=== PATIENT | female | born 1955 | race African-American/Black ===

== ENCOUNTER 2018-03-08 15:40 | Inpatient (IN) | payer OTHER ==
[2018-03-08] MEDS ORDERED: Albuterol/Ipratropium NEB.SOL* Albuterol 2.5 MG/Ipratropium 0.5 MG 3 ML INH ONE (17:53)
[2018-03-08] MEDS ORDERED: methylPREDNISolone 125 MG* 2 ML VIAL IV ONE (17:53)
[2018-03-08 18:53] LABS: Hematocrit 39 % (35-47); Hemoglobin 13.6 g/dl (12.0-16.0); Mean Corpuscular HGB Conc 34 g/dl (31-36); Mean Corpuscular Hemoglobin 30 pg (27-31); Mean Corpuscular Volume 86 fL (80-97); Mean Platelet Volume 7.8 um3 (7.4-10.4); Platelet Count 246 10^3/ul (150-450); Red Blood Count 4.59 10^6/ul (4.0-5.4); Red Cell Distribution Width 15 % (10.5-15); White Blood Count 13.7 10^3/ul (3.5-10.8)
[2018-03-08 18:57] LABS: INR 1.18 (0.77-1.02)
[2018-03-08] MEDS ORDERED: Azithromycin IV(*) 500 MG in NS 0.9% 250 ML* 250 ML IVPB ONE (18:57)
[2018-03-08] MEDS ORDERED: cefTRIAXone(*) 1 GM in NS 0.9% 50 ML* 50 ML IVPB ONE (18:57)
[2018-03-08 19:06] LABS: EGFR Non-African American 72.9 (>60)
--- NOTE | 2018-03-08 19:13 | RAD ---
Indication: Hemoptysis. COPD. Comparison: May 16, 2016 CT. Technique: Upright AP 1849 hours Report: Elevated lung volumes and both diffuse mild prominence of the interstitial markings and patchy rarefaction of the mid to upper lung zone interstitial markings. Severe airspace consolidation involving the anterior segment of the RIGHT upper lobe which may be technical due to pneumonia or potentially alveolar hemorrhage in setting of hemoptysis. Grossly clear pleural spaces. Negative for pneumothorax. The heart, pulmonary vasculature, and mediastinal contours are unremarkable. IMPRESSION: The radiographic appearance in the appropriate clinical setting would be consistent with pneumonia involving the anterior segment of the RIGHT upper lobe. In absence of clinical findings of pneumonia the primary consideration would be pulmonary hemorrhage. Underlying advanced chronic obstructive pulmonary disease. Correlate with clinical assessment.
[2018-03-08] MEDS ORDERED: Iohexol 350* (CONTRAST) 500 ML MDV IV ONE (19:28)
[2018-03-08 20:02] LABS: Monocytes % 7 % (0-7)
--- NOTE | 2018-03-08 20:13 | RAD ---
INDICATION: Hemoptysis. Assess for PE. COMPARISON: Chest radiograph of the same date and May 16, 2016 CT. TECHNIQUE: Multidetector CT images were obtained from the lung apices to the upper abdomen with 79 mL Omnipaque 350 IV contrast. Pulmonary angiogram protocol. Multiplanar reformation including with maximum intensity projection. REPORT: Airspace consolidation involving the RIGHT upper lobe with relative sparing of the apex consistent with pneumonia superimposed on chronic obstructive pulmonary disease and emphysema. Partial atelectasis of the RIGHT middle lobe and RIGHT lower lobe. Grossly clear LEFT lung. Negative for pleural effusions or pneumothorax. Upper normal 1.0 cm short axis precarinal and subcarinal lymph nodes. Upper normal bilateral hilar lymph nodes measuring up to 0.7 cm short axis. Negative for lymphadenopathy. Negative for cardiomegaly or pericardial effusion. Normal diameter thoracic aorta with mild atherosclerotic plaque. Negative for aortic dissection. Motion artifact mildly degrades the CT pulmonary angiogram. No compelling filling defects are identified from the main to the subsegmental pulmonary arteries to indicate presence of a pulmonary embolism. Prominent central pulmonary arteries with peripheral attenuation favoring pulmonary arterial hypertension. Small sliding type hiatal hernia. Negative for suspicious thoracic osseous lesions. IMPRESSION: 1. RIGHT upper lobe pneumonia. Radiographic follow-up after therapy warranted to assess for resolution. 2. Partial atelectasis of the RIGHT middle and RIGHT lower lobes. 3. Negative for pulmonary embolism. 4. Probable reactive upper normal mediastinal and hilar lymph nodes. 5. Probable pulmonary arterial hypertension.
[2018-03-08] MEDS ORDERED: Docusate CAP* 100 MG PO PRN (20:21)
[2018-03-08] MEDS ORDERED: Al Hydrox/Mg Hydrox/Simet LIQ* 30 ML UDC PO PRN (20:21)
[2018-03-08] MEDS ORDERED: Senna TAB PO PRN (20:21)
[2018-03-08] MEDS ORDERED: Ondansetron INJ* 2 MG/ML VIAL IV PRN (20:21)
[2018-03-08] MEDS ORDERED: Benzonatate CAP* 100 MG PO PRN (20:27)
[2018-03-08] MEDS ORDERED: PROCHLORPERAZINE INJ 5 MG/ML 2 ML VIAL IV PRN (20:28)
[2018-03-08] MEDS ORDERED: Mouth Piece, Nicotine* 1 EACH CARTRIDGE INH PRN ×2 (20:37)
[2018-03-08] MEDS ORDERED: Dextrose 50% Syringe 50 ML* 25 GM/50 ML SYRINGE IV PUSH PRN (20:37)
[2018-03-08] MEDS ORDERED: Nicotine Inhaler* 10 MG AMP INH PRN (20:37)
[2018-03-08] MEDS ORDERED: Piperacillin/Tazobac ADVAN(*) 3.375 GM in NS 0.9% 100 ML* 100 ML IVPB ONE (20:48)
[2018-03-08] MEDS ORDERED: Spiriva Inhaler DEVICE* 1 EACH DEVICE SCH (21:00)
[2018-03-08] MEDS ORDERED: Zosyn per Pharmacy* NOTE FOLLOW UP SCH (21:00)
[2018-03-08] MEDS ORDERED: KCL 20 MEQ/100 ML IVPREMIX* 20 MEQ/100 ML BAG IV SCH (21:00)
--- NOTE | 2018-03-08 21:28 | ED ---
Alin Minor Stephanie, scribed for Javier Rod MD on 03/08/18 at 1756 . Complex/Multi-Sys Presentation - HPI Summary HPI Summary: The pt is a 62 y/o F presenting to the ED with c/o SOB that began at 07:30 today. Symptoms include generalized increasing fibromyalgia pain, R rib pain and cough. - History Of Current Complaint Chief Complaint: EDShortnessOfBreath Time Seen by Provider: 03/08/18 17:51 Hx Obtained From: Patient Onset/Duration: Sudden Onset, Lasting Hours - 10, Still Present Timing: Constant Severity Currently: Moderate Associated Signs And Symptoms: Positive: SOB, Cough, Other - generalized fibromyalgia pain - Allergies/Home Medications Allergies/Adverse Reactions: Allergies Allergy/AdvReac Type Severity Reaction Status Date / Time No Known Allergies Allergy Verified 03/08/18 15:52 Home Medications: Home Medications Albuterol 2.5MG/3ML (0.083%)* [Ventolin 2.5 MG/3 ML NEB.TED*] 2.5 mg INH BID PRN 03/08/18 [History Confirmed 03/08/18] Albuterol HFA INHALER* [Ventolin HFA Inhaler*] 2 puff INH Q4H PRN 03/08/18 [ History Confirmed 03/08/18] Aspirin EC TAB* [Ecotrin EC Low Dose 81 MG*] 81 mg PO DAILY 03/08/18 [History Confirmed 03/08/18] Benzonatate CAP* [Tessalon 100 MG CAP*] 200 mg PO TID PRN 03/08/18 [History Confirmed 03/08/18] Docusate CAP* [Colace Cap*] 100 mg PO BID 03/08/18 [History Confirmed 03/08/18] FLUoxetine CAP* [PROzac CAP*] 20 mg PO QAM 03/08/18 [History Confirmed 03/08/18] FLUoxetine CAP* [PROzac CAP*] 40 mg PO QAM 03/08/18 [History Confirmed 03/08/18] Isosorbide Mononitrate ER TAB* [Imdur ER TAB*] 60 mg PO DAILY 03/08/18 [History Confirmed 03/08/18] Mometasone/Formoter 200/5 MDI* [Dulera 200/5 MDI*] 2 puff INH BID 03/08/18 [ History Confirmed 03/08/18] Naproxen TAB* [Naprosyn 250 mg TAB*] 500 mg PO BID 03/08/18 [History Confirmed 03/08/18] QUEtiapine TAB* [Seroquel 25 MG TAB*] 50 mg PO DAILY 03/08/18 [History Confirmed 03/08/18] Spironolactone TAB* [Aldactone TAB*] 25 mg PO DAILY 03/08/18 [History Confirmed 03/08/18] amLODIPine TAB* [Norvasc 5 mg TAB*] 10 mg PO DAILY 03/08/18 [History Confirmed 03/08/18] PMH/Surg Hx/FS Hx/Imm Hx Endocrine/Hematology History: Denies: Hx Diabetes Cardiovascular History: Reports: Hx Hypertension Denies: Hx Congestive Heart Failure Respiratory History: Reports: Hx Asthma, Hx Chronic Obstructive Pulmonary Disease (COPD) GI History: Reports: Hx Obstructive Bowel, Other GI Disorders - bowel resection History: Denies: Hx Renal Disease Musculoskeletal History: Reports: Hx Fibromyalgia, Hx Tendonitis Sensory History: Reports: Hx Contacts or Glasses - glasses Opthamlomology History: Reports: Hx Contacts or Glasses - glasses - Surgical History Surgery Procedure, Year, and Place: Hysterectomy. Bowel resection 2011. Left hand tendon repair 2014. right knee build up 2013 Infectious Disease History: No Infectious Disease History: Reports: Hx Shingles - not active Denies: History Other Infectious Disease, Traveled Outside the [place] in Last 30 Days - Family History Known Family History: Negative: Renal Disease - Social History Occupation: Disabled Lives: With Family Alcohol Use: None Hx Substance Use: No Substance Use Type: Reports: None Substance Use Comment - Amount & Last Used: xanax Hx Tobacco Use: Yes Smoking Status (MU): Light Every Day Tobacco Smoker Type: Cigarettes Review of Systems Negative: Fever Positive: Shortness Of Breath, Cough Positive: Other - R rib pain, generalized fibromyalgia pain All Other Systems Reviewed And Are Negative: Yes Physical Exam - Summary Physical Exam Summary: General: Mildly ill-appearing, no pain distress Skin: warm, color reflects adequate perfusion, dry Head: normal Eyes: EOMI, VIVIANA ENT: normal Neck: supple, nontender Respiratory: Bilateral rhonchi, mild respiratory distress, breath sounds present Cardiovascular: RRR Abdomen: soft, nontender Bowel: present Musculoskeletal: normal, strength/ROM intact Neurological: normal, sensory/motor intact, A&O x3 Psychological: affect/mood appropriate Triage Information Reviewed: Yes Vital Signs On Initial Exam: Initial Vitals Temp Pulse Resp BP Pulse Ox 99.1 F 105 20 109/72 92 03/08/18 15:47 03/08/18 15:47 03/08/18 15:47 03/08/18 15:47 03/08/18 15:47 Vital Signs Reviewed: Yes Diagnostics - Vital Signs Vital Signs Temp Pulse Resp BP Pulse Ox 03/08/18 15:47 99.1 F 105 20 109/72 92 - Laboratory Lab Results: Lab Results 03/08/18 03/08/18 03/08/18 Range/Units 18:33 18:34 18:34 WBC 13.7 H (3.5-10.8) 10^3/ul RBC 4.59 (4.0-5.4) 10^6/ul Hgb 13.6 (12.0-16.0) g/dl Hct 39 (35-47) % MCV 86 (80-97) fL MCH 30 (27-31) pg MCHC 34 (31-36) g/dl RDW 15 (10.5-15) % Plt Count 246 (150-450) 10^3/ul MPV 7.8 (7.4-10.4) um3 Neut % (Auto) Not Reportable Lymph % (Auto) Not Reportable Weld % (Auto) Not Reportable Eos % (Auto) Not Reportable Baso % (Auto) Not Reportable Absolute Neuts (auto) Not Reportable Absolute Lymphs (auto) Not Reportable Absolute Monos (auto) Not Reportable Absolute Eos (auto) Not Reportable Absolute Basos (auto) Not Reportable Absolute Nucleated RBC Not Reportable Immature Gran % 6 (0-9) % Neutrophils % 79 (38-83) % Band Neutrophils % 6 (0-8) % Lymphocytes % 8 L (25-47) % Monocytes % 7 (0-7) % Eosinophils % 0 (0-6) % Basophils % 0 (0-2) % Nucleated RBC % Not Reportable Abs Neuts (Manual) 10.8 H (1.5-7.7) 10^3/ul Abs Lymphs (Manual) 1.1 (1.0-4.8) 10^3/ul Abs Monocytes (Manual) 1.0 H (0-0.8) 10^3/ul Absolute Eos (Manual) 0 (0-0.6) 10^3/ul Abs Basophils (Manual) 0 (0-0.2) 10^3/ul Large Platelets Present Normal RBC Morphology Normal (Normal) INR (Anticoag Therapy) 1.18 H (0.77-1.02) D-Dimer, Quantitative 911 H (Less Than 230) ng/mL VBG pH (7.33-7.43) VBG pCO2 (41-51) mmHg VBG pO2 (35-45) mmHg VBG HCO3 (24-28) mmol/L VBG O2 Saturation (70-80) % VBG Base Excess (0-4) Sodium 136 L (139-145) mmol/L Potassium 3.1 L (3.5-5.0) mmol/L Chloride 102 (101-111) mmol/L Carbon Dioxide 24 (22-32) mmol/L Anion Gap 10 (2-11) mmol/L BUN 12 (6-24) mg/dL Creatinine 0.80 (0.51-0.95) mg/dL Est GFR ( Amer) 93.8 (>60) Est GFR (Non-Af Amer) 72.9 (>60) BUN/Creatinine Ratio 15.0 (8-20) Glucose 92 (70-100) mg/dL Lactic Acid (0.5-2.0) mmol/L Calcium 8.4 L (8.6-10.3) mg/dL Magnesium 1.0 L (1.9-2.7) mg/dL Total Bilirubin 1.30 H (0.2-1.0) mg/dL AST 12 L (13-39) U/L ALT 9 (7-52) U/L Alkaline Phosphatase 85 (34-104) U/L Total Creatine Kinase 86 (10-223) U/L Troponin I 0.00 (<0.04) ng/mL C-Reactive Protein 108.11 H (< 5.00) mg/L B-Natriuretic Peptide ( - 100) pg/mL Total Protein 6.6 (6.4-8.9) g/dL Albumin 3.3 (3.2-5.2) g/dL Globulin 3.3 (2-4) g/dL Albumin/Globulin Ratio 1.0 (1-3) 03/08/18 03/08/18 03/08/18 Range/Units 18:34 18:34 18:52 WBC (3.5-10.8) 10^3/ul RBC (4.0-5.4) 10^6/ul Hgb (12.0-16.0) g/dl Hct (35-47) % MCV (80-97) fL MCH (27-31) pg MCHC (31-36) g/dl RDW (10.5-15) % Plt Count (150-450) 10^3/ul MPV (7.4-10.4) um3 Neut % (Auto) Lymph % (Auto) Weld % (Auto) Eos % (Auto) Baso % (Auto) Absolute Neuts (auto) Absolute Lymphs (auto) Absolute Monos (auto) Absolute Eos (auto) Absolute Basos (auto) Absolute Nucleated RBC Immature Gran % (0-9) % Neutrophils % (38-83) % Band Neutrophils % (0-8) % Lymphocytes % (25-47) % Monocytes % (0-7) % Eosinophils % (0-6) % Basophils % (0-2) % Nucleated RBC % Abs Neuts (Manual) (1.5-7.7) 10^3/ul Abs Lymphs (Manual) (1.0-4.8) 10^3/ul Abs Monocytes (Manual) (0-0.8) 10^3/ul Absolute Eos (Manual) (0-0.6) 10^3/ul Abs Basophils (Manual) (0-0.2) 10^3/ul Large Platelets Normal RBC Morphology (Normal) INR (Anticoag Therapy) (0.77-1.02) D-Dimer, Quantitative (Less Than 230) ng/mL VBG pH (7.33-7.43) VBG pCO2 (41-51) mmHg VBG pO2 (35-45) mmHg VBG HCO3 (24-28) mmol/L VBG O2 Saturation (70-80) % VBG Base Excess (0-4) Sodium (139-145) mmol/L Potassium (3.5-5.0) mmol/L Chloride (101-111) mmol/L Carbon Dioxide (22-32) mmol/L Anion Gap (2-11) mmol/L BUN (6-24) mg/dL Creatinine (0.51-0.95) mg/dL Est GFR ( Amer) (>60) Est GFR (Non-Af Amer) (>60) BUN/Creatinine Ratio (8-20) Glucose (70-100) mg/dL Lactic Acid 1.7 1.9 (0.5-2.0) mmol/L Calcium (8.6-10.3) mg/dL Magnesium (1.9-2.7) mg/dL Total Bilirubin (0.2-1.0) mg/dL AST (13-39) U/L ALT (7-52) U/L Alkaline Phosphatase (34-104) U/L Total Creatine Kinase (10-223) U/L Troponin I (<0.04) ng/mL C-Reactive Protein (< 5.00) mg/L B-Natriuretic Peptide 173 H ( - 100) pg/mL Total Protein (6.4-8.9) g/dL Albumin (3.2-5.2) g/dL Globulin (2-4) g/dL Albumin/Globulin Ratio (1-3) 03/08/18 Range/Units 19:29 WBC (3.5-10.8) 10^3/ul RBC (4.0-5.4) 10^6/ul Hgb (12.0-16.0) g/dl Hct (35-47) % MCV (80-97) fL MCH (27-31) pg MCHC (31-36) g/dl RDW (10.5-15) % Plt Count (150-450) 10^3/ul MPV (7.4-10.4) um3 Neut % (Auto) Lymph % (Auto) Weld % (Auto) Eos % (Auto) Baso % (Auto) Absolute Neuts (auto) Absolute Lymphs (auto) Absolute Monos (auto) Absolute Eos (auto) Absolute Basos (auto) Absolute Nucleated RBC Immature Gran % (0-9) % Neutrophils % (38-83) % Band Neutrophils % (0-8) % Lymphocytes % (25-47) % Monocytes % (0-7) % Eosinophils % (0-6) % Basophils % (0-2) % Nucleated RBC % Abs Neuts (Manual) (1.5-7.7) 10^3/ul Abs Lymphs (Manual) (1.0-4.8) 10^3/ul Abs Monocytes (Manual) (0-0.8) 10^3/ul Absolute Eos (Manual) (0-0.6) 10^3/ul Abs Basophils (Manual) (0-0.2) 10^3/ul Large Platelets Normal RBC Morphology (Normal) INR (Anticoag Therapy) (0.77-1.02) D-Dimer, Quantitative (Less Than 230) ng/mL VBG pH 7.37 (7.33-7.43) VBG pCO2 47 (41-51) mmHg VBG pO2 12 L (35-45) mmHg VBG HCO3 23.6 L (24-28) mmol/L VBG O2 Saturation 18.5 L (70-80) % VBG Base Excess 1.2 (0-4) Sodium (139-145) mmol/L Potassium (3.5-5.0) mmol/L Chloride (101-111) mmol/L Carbon Dioxide (22-32) mmol/L Anion Gap (2-11) mmol/L BUN (6-24) mg/dL Creatinine (0.51-0.95) mg/dL Est GFR ( Amer) (>60) Est GFR (Non-Af Amer) (>60) BUN/Creatinine Ratio (8-20) Glucose (70-100) mg/dL Lactic Acid (0.5-2.0) mmol/L Calcium (8.6-10.3) mg/dL Magnesium (1.9-2.7) mg/dL Total Bilirubin (0.2-1.0) mg/dL AST (13-39) U/L ALT (7-52) U/L Alkaline Phosphatase (34-104) U/L Total Creatine Kinase (10-223) U/L Troponin I (<0.04) ng/mL C-Reactive Protein (< 5.00) mg/L B-Natriuretic Peptide ( - 100) pg/mL Total Protein (6.4-8.9) g/dL Albumin (3.2-5.2) g/dL Globulin (2-4) g/dL Albumin/Globulin Ratio (1-3) Result Diagrams: 03/08/18 18:34 03/08/18 18:34 Lab Statement: Any lab studies that have been ordered have been reviewed, and results considered in the medical decision making process. - Radiology CXR Xray Interpretation: Positive (See Comments) Radiology Interpretation Completed By: Radiologist - The radiographic appearance in the appropriate clinical setting would be consistent with pneumonia involving the anterior segment of the RIGHT upper lobe. In absence of clinical findings of pneumonia the primary consideration would be pulmonary hemorrhage. Underlying advanced chronic obstructive pulmonary disease. Correlate with clinical assessment. ED physician has reviewed this report. - CT Chest/Thorax CTA CT Interpretation: Positive (See Comments) CT Interpretation Completed By: Radiologist - 1. RIGHT upper lobe pneumonia. Radiographic follow-up after therapy warranted to assess for resolution. 2. Partial atelectasis of the RIGHT middle and RIGHT lower lobes. 3. Negative for pulmonary embolism. 4. Probable reactive upper normal mediastinal and hilar lymph nodes. 5. Probable pulmonary arterial hypertension. ED physician has reviewed this report. - EKG 17:51 Cardiac Rate: Tachycardia EKG Rhythm: Sinus Tachycardia - 105 BPM Ectopy: None EKG Interpretation: depressed T segments in the lateral leads Re-Evaluation - Re-Evaluation First Eval Re-Evaluation Time: 19:07 Change: Worse - The pt states she is feeling worse following bthe breathing treatment. Complex Multi-Symp Course/Dx Course Of Treatment: ADMIT HOSPITALIST - Diagnoses Provider Diagnoses: Pneumonia, Sepsis - Physician Notifications Discussed Care Of Patient With: Breanne Mcneil Time Discussed With Above Provider: 19:55 Instructed by Provider To: Admit As Inpatient - Critical Care Time Critical Care Time: 30-74 min Discharge - Sign-Out/Discharge Documenting (check all that apply): Discharge/Admit/Transfer - Discharge Plan Condition: Critical Disposition: ADMITTED TO [facility] - Billing Disposition and Condition Condition: CRITICAL Disposition: HOSP-[facility] The documentation as recorded by the Alin rios Stephanie accurately reflects the service I personally performed and the decisions made by me, Javier Rod MD.
[2018-03-08] MEDS ORDERED: Potassium Chloride IV* 40 MEQ in NS 0.9% 250 ML* 250 ML IVPB ONE (22:00)
[2018-03-08] MEDS ORDERED: Vancomycin per Pharmacy* NOTE FOLLOW UP PRN (22:45)
[2018-03-08] MEDS ORDERED: Vancomycin(*) 1,250 MG in NS 0.9% 250 ML* 250 ML IVPB ONE (22:45)
[2018-03-08] MEDS: ZOSYN 3.375 GM Q8H per EXTENDED INFUSION IVPB SCH ×2 (23:22)
[2018-03-08] MEDS ORDERED: Magnesium Sulfate IV* 3 GM in NS 0.9% 100 ML* 100 ML IVPB ONE (23:28)
[2018-03-08] MEDS: Acetaminophen TAB* 325 MG PO PRN (23:48)
[2018-03-09] MEDS: Metoprolol Tartrate TAB* 25 MG PO SCH ×2 (00:21→08:06)
[2018-03-09] MEDS: Gabapentin CAP(*) 300 MG PO SCH ×4 (00:21→21:06)
[2018-03-09] MEDS: Mometasone/Formoter 200/5 MDI INH SCH ×2 (00:21→08:21)
[2018-03-09] MEDS: Heparin VIAL(*) 5000 UNITS/ML VIAL (FIVE THOUSAND) SUBCUT SCH ×4 (00:22→21:06)
[2018-03-09] MEDS: ZOSYN 3.375 GM Q8H per EXTENDED INFUSION IVPB SCH ×6 (02:55→18:56)
[2018-03-09] MEDS: Ondansetron 40 MG VIAL* 2 MG/ML 20 ML VIAL IV PRN ×2 (05:29→11:57)
[2018-03-09 05:31] LABS: Hematocrit 36 % (35-47); Mean Corpuscular HGB Conc 33 g/dl (31-36); Mean Corpuscular Hemoglobin 29 pg (27-31); Mean Corpuscular Volume 87 fL (80-97); Mean Platelet Volume 8.1 um3 (7.4-10.4); Platelet Count 232 10^3/ul (150-450); Red Blood Count 4.17 10^6/ul (4.0-5.4); Red Cell Distribution Width 15 % (10.5-15); White Blood Count 17.4 10^3/ul (3.5-10.8)
[2018-03-09] MEDS: Acetaminophen TAB* 325 MG PO PRN (05:37)
[2018-03-09 05:47] LABS: EGFR Non-African American 78.6 (>60)
--- NOTE | 2018-03-09 06:18 | HP ---
CC: Jeanie Montanez MD * HISTORY AND PHYSICAL: DATE OF ADMISSION: 03/08/18 TIME OF EVALUATION: 1999. PRIMARY CARE PHYSICIAN: Jeanie Montanez MD CHIEF COMPLAINT: Shortness of breath. HISTORY OF PRESENT ILLNESS: This is a 62-year-old female with a past medical history of COPD, CHF, and obstructive sleep apnea, who states she came in with acute onset of shortness of breath and chest pain with hemoptysis. The is also at the bedside who fills in quite a bit and states that she is always short of breath, that she never leaves her house. She gets short of breath from going to her room to the kitchen. She feels that it has been going on for a while that her dyspnea on exertion has gotten significantly worse. She takes care of her 4-year- old adopted son. When he was sick this morning, he was vomiting, she was caring for him and then there was an acute onset of shortness of breath, hemoptysis, and chest pain. She has chronic nausea and gagging since she had her colon resection back in 2011. She has had a weight loss about 20 pounds over the past few months with decrease in appetite. She does state she has a difficulty with eating food. She does choke on them and feels that they get stuck. She had some chills yesterday. She has chronic abdominal pain, nothing worse recently. She does have issues with stool incontinence during the evening, which is unchanged. No urinary symptoms. No recent travel. She did get steroid injections in her back and knee of note last week for her arthritis. She also states she needed sublingual nitro a few days ago for her chest pain. Otherwise, remaining systems is negative. In the emergency room, the patient had labs, imaging. She was given ceftriaxone, azithro, and Solu-Medrol and was referred to the hospitalist service for further evaluation. PAST MEDICAL HISTORY: 1. COPD, on room air. She states she sees a daycare director in [place] and had recent pulmonary function test. 2. Tobacco use. 3. History of CVA with right-sided weakness. 4. Hypertension. 5. Lupus. 6. Fibromyalgia. 7. 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 8. Prediabetes. 9. Anxiety. 10. Depression. 11. CHF, unspecified. 12. Arthritis. 13. Obstructive sleep apnea, is noncompliant on her CPAP. MEDICATIONS: 1. Benzonatate 200 mg p.o. t.i.d. as needed. 2. Promethazine 25 mg b.i.d. as needed. 3. Isosorbide mononitrate ER 60 mg p.o. daily. 4. Fluoxetine 60 mg p.o. daily. 5. Amlodipine 10 mg daily. 6. Spironolactone 25 mg p.o. daily. 7. Gabapentin recently increased to 600 mg p.o. t.i.d. 8. Metoprolol 50 mg p.o. b.i.d. 9. Docusate 100 mg p.o. b.i.d. as needed. 10. Dulera 200/5 twice a day. 11. Cyclobenzaprine 10 mg t.i.d. as needed. 12. Spiriva daily. 13. Nitro sublingual as needed. 14. Albuterol MDI as needed. 15. Aleve as needed. 16. Aspirin 81 mg p.o. daily. ALLERGIES: No known drug allergies. FAMILY HISTORY: Mother is alive at age 84. Father in the 60s from a stroke. SOCIAL HISTORY: The patient lives at home with her adopted son, who is 4 years old, she cares for him. Her , Javier Cummings, is at the bedside, lives in [facility], but he comes out a few times a month to stay with her. The patient is still smoking, down to half a pack per day, but has been smoking for 4 years and was up to a pack per day in the past. No alcohol or illicit drug use. She is disabled. Code status is full code. REVIEW OF SYSTEMS: A 14-point review of systems as mentioned in the HPI, otherwise, negative. PHYSICAL EXAMINATION GENERAL: Some moderate respiratory distress, tachypnea, increased work of breathing. VITAL SIGNS: Temp 99.1; pulse rate 106; respiratory rate 40; oxygen saturation 96%, now on Vapotherm; blood pressure 113/68. HEENT: Head normocephalic. Pupils equal and reactive. Oropharynx, mucous membranes moist. NECK: Supple. No lymphadenopathy. RESPIRATORY: Poor aeration, increased work of breathing, bilateral expiratory wheezes, rhonchi on the right lobe. CARDIAC: Tachycardia. Soft systolic murmur heard throughout. ABDOMEN: Positive bowel sounds, soft, nondistended. No focal tenderness. EXTREMITIES: Trace pretibial edema. +1 DPs. NEUROLOGIC: Alert and oriented x3. No gross focal neurologic deficits. DIAGNOSTIC STUDIES/LABORATORY DATA: White count 13.7, hemoglobin 13.6, hematocrit 39, platelets 246. INR was 1.18. D-dimer 911. Sodium 136, potassium 3.1, chloride 102, bicarb 24, BUN 12, creatinine 0.8. Troponin 0. CRP 108. BNP 173. Radiographic Data: Chest x-ray consistent with pneumonia involving the anterior segment of the right upper lobe. In the absence of clinical findings of pneumonia, the primary consideration would be pulmonary hemorrhage, underlying COPD. Chest CTA: Right upper lobe pneumonia, radiographic followup after therapy warranted to assess for resolution, partial atelectasis of the right middle and right lower lobe, negative for PE, probable reactive airway, normal mediastinal and hilar lymph nodes, probable pulmonary artery hypertension. EKG shows sinus tachycardia with inverted T waves in the anterolateral leads and flattened T waves in the V1 through V3. ASSESSMENT: This is a 62-year-old female with a past medical history of tobacco use and chronic obstructive pulmonary disease who presents to the emergency room with acute onset of shortness of breath, chest pain, and hemoptysis, found to have a right upper lobe pneumonia. 1. Shortness of breath, hemoptysis, and chest pain. Assessment: The patient's findings are consistent with a right upper lobe pneumonia. My concern is that this is aspiration pneumonia. She does have difficulty with eating food. Also, the patient appears have chronic obstructive pulmonary disease exacerbation as well with increased cough, shortness of breath, and sputum production. The patient was placed by my request on Vapotherm in the emergency room for increased work of breathing and her tachypnea, which seems to have improved now that she is on Vapotherm. Plan: We will her admit to the ICU. We will continue to trend her troponin. I am going to hold her aspirin for now in the setting of her hemoptysis. I am going to change her over to Zosyn in the setting of possible aspiration pneumonia, put in for a speech and swallow evaluation, probably needs more formal imaging for her swallowing function once she is more stable from a respiratory standpoint. We will continue her home inhaler regimen and additionally give DuoNeb, albuterol as needed and continue on prednisone 40 mg. We will follow up on sputum cultures as well. CHRONIC MEDICAL PROBLEMS: 1. Hypertension. The patient's blood pressures are soft. We will lower her metoprolol dose to 12.5 b.i.d. and continue her on her isosorbide and we will hold her amlodipine as well for now. 2. For fibromyalgia, continue her gabapentin. 3. Depression/anxiety. Continue her fluoxetine. 4. FEN: We will place the patient on a clear liquid diet for now and follow up as mentioned with the speech and swallow evaluation. Place her on IV fluids. 5. DVT prophylaxis: The patient scores high risk. Place her on heparin subcu t.i.d. If her hemoptysis worsens or her blood counts drop, we will switch over to SCDs. 6. Code status: Full code. Spoke with Dr. Shrestha as well regarding this patient's condition PATIENT TIME: Greater than 60 minutes spent doing history and physical, more than half the time spent in direct patient contact and critical care time. [id number]/[facility] #: [id number] YOU
[2018-03-09] MEDS: FLUoxetine CAP* 20 MG PO SCH (08:06)
[2018-03-09] MEDS: Albuterol/Ipratropium NEB.SOL* Albuterol 2.5 MG/Ipratropium 0.5 MG 3 ML INH PRN (08:44)
[2018-03-09] MEDS ORDERED: predniSONE TAB* 20 MG PO SCH (09:00)
[2018-03-09] MEDS ORDERED: Isosorbide Mononitrate ER TAB* 60 MG PO SCH (09:00)
[2018-03-09] MEDS ORDERED: FLUoxetine CAP* 20 MG PO SCH (09:00)
[2018-03-09] MEDS ORDERED: amLODIPine TAB* 5 MG PO SCH (09:00)
[2018-03-09] MEDS ORDERED: Spiriva Inhaler DEVICE* 1 EACH DEVICE INH SCH (09:00)
[2018-03-09] MEDS ORDERED: cefTRIAXone(*) 1 GM in NS 0.9% 50 ML* 50 ML IVPB SCH (09:00)
[2018-03-09] MEDS ORDERED: predniSONE TAB* 5 MG PO SCH (09:00)
[2018-03-09] MEDS ORDERED: Tiotropium CAP.INH* CAP.INH/18 MCG (USE ORDER SET !) INH SCH ×2 (09:00)
[2018-03-09] MEDS ORDERED: Morphine VIAL* 4 MG/ML VIAL (1 ml vial) IV ONE ×3 (10:01→12:27)
[2018-03-09] MEDS: Insulin LISPRO* 1 UNITS UNIT SUBCUT SCH ×3 (10:29→17:04)
[2018-03-09] MEDS ORDERED: Vancomycin(*) 1,250 MG in NS 0.9% 250 ML* 250 ML IVPB SCH (11:00)
[2018-03-09] MEDS ORDERED: NS 0.9% 1000 ML* 1,000 ML IV ONE ×2 (11:42→13:52)
[2018-03-09] MEDS ORDERED: Norepinephrine 16MCG/ML IVPRE* 4,000 MCG/250 ML BAG IV ONE (11:51)
[2018-03-09] MEDS ORDERED: Norepinephrine 16MCG/ML IVPRE* 4,000 MCG/250 ML BAG IV SCH (12:00)
[2018-03-09] MEDS ORDERED: Propofol* 100 ML ONE (12:38)
--- NOTE | 2018-03-09 12:48 | PN ---
Progress Note - Progress Note Date of Service: 03/09/18 Note: CRITICAL CARE MEDICINE Date: 03/09 2018 Time: 1100 SUBJECTIVE: Patient seen and examined. PHYSICAL EXAM: Vital Signs: Reviewed. Hr ok 80s. 50%. bipap with high mv up to 20s. Neurologic: awake, communicating well. holds capacity HEENT: pupils equal. Sclera anicteric. Trachea midline. Cardiovascular: S1 S2 Respiratory: diffuse dec and rales on right. not much excursion on right. Abdomen: Soft, nt. No r/g/r. Extremities: Warm. Access: piv LABS: Reviewed. IMAGING: Reviewed. MEDICATIONS: Reviewed. ASSESSMENT: 62 F Acute hypoxic resp failure Dense Right sided pna, probably H influ Sepsis secondary to this anderson nonadherent with cpap ogoing tob use PLAN: Neurologic: tolerating but has some pleuritc pain with this. morphine prn. will need sedation with intubation. Cardiovascular: perfusing but high demands. has underlying right heart pulm htn likely. bolus ivf but otherwise intravascular vol holding. may need low dose levophed with intubation/ppv. No demand ischemia. Respiratory: dense pna. will need considerable time to clear this up. intubation best for her to help give this time to liquify. can consider bronch if cx unrevealing and/or to help pulm toliet. Lung protection and end organ protection priority. copd adjunctives. Gastrointestinal: place ogt with intubation. tf. sup. Renal/Metabolic: castrejon. f/u lytes and fluid status but holding at present. Infectious Disease: receiving zosyn, azithro and had one dose vanco. can hold off on vanco. f/u cx. azithro may help with anti-inflamm components. Hematology: stable but will likely dilute. hsq Endocrine: copd steroids. f/u bg Musculoskeletal: bedrest. skin precautions. Psych/Social: d/w via the phone who is arriving soon. Both pt and expressed understanding of plans. Supportive and preventative care as ordered. SUP: H2 VTE prophylaxis: heparin Castrejon catheter given critical illness, monitoring needs for accurate assessment of BINDU and KDIGO criteria for critically ill patients and to avoid potential harms of urinary retention, skin breakdown/ulcers. Disposition: ICU Code Status: Full Critical Care Time: 45min Moisés Shrestha DO
[2018-03-09] MEDS ORDERED: Midazolam* 1 MG/ML 10 ML VIAL (10 MG) ONE (13:05)
[2018-03-09] MEDS ORDERED: fentaNYL* 50 MCG/ML 5 ML VIAL (250 MCG VIAL) ONE (13:05)
[2018-03-09] MEDS ORDERED: Propofol* 10 MG/ML 20 ML BTL IV PUSH ONE (13:05)
[2018-03-09] MEDS ORDERED: Succinylcholine* 20 MG/ML 10 ML VIAL ONE (13:12)
[2018-03-09] MEDS: Propofol* 100 ML IV SCH ×3 (13:20→23:34)
--- NOTE | 2018-03-09 13:29 | PN ---
Progress Note - Progress Note Date of Service: 03/09/18 Note: CRITICAL CARE MEDICINE PROCEDURE NOTE DATE: 03/09/18 TIME: 1315 SERVICE: Critical Care Medicine LOCATION OF PROCEDURE: ICU PROCEDURE: Endotracheal intubation PROCEDURALIST: Dr. Shrestha Consent obtain: Yes. Time out held: Not indicated INDICATION: Acute respiratory failure secondary to pneumonia. PROCEDURE: Oxygenation maintained and vitals monitored. Patient in supine position. Pre-medication with fentanyl 250mcg, versed 4mg, propofol 100mg total. Glidescope #3 inserted with Grade 1 view obtained. 8.0 endotracheal tube inserted to 24cm lip. Good chest rise with breath sounds appreciated in bilaterally lung lujan. EtCO2 + color change. Portable chest x-ray pending. Patient otherwise tolerated well. updated. Moisés Shrestha, DO
--- NOTE | 2018-03-09 15:38 | RAD ---
INDICATION: Status post intubation and orogastric tube placement. COMPARISON: Comparison is made with a prior study from March 08, 2017. TECHNIQUE: A portable view of the chest was obtained. FINDINGS: The heart is within normal limits in size. There is an endotracheal tube which projects over the midline located at the level of the clavicular heads. There is a nasogastric tube which demonstrates normal course. The tip is not well-defined although appears to project in the region of the gastroesophageal junction. There is a relatively dense right upper lobe infiltrate which is unchanged. The lungs are underinflated. There are small infiltrates at both lung bases which are new possibly representing atelectasis. No pleural effusion is seen. IMPRESSION: 1. STATUS POST INTUBATION AND OROGASTRIC TUBE PLACEMENT. THE DISTAL TIP OF THE OROGASTRIC TUBE IS NOT WELL-DEFINED ALTHOUGH LIKELY IN THE REGION OF THE GASTROESOPHAGEAL JUNCTION. CONSIDER ADVANCING THE CATHETER. 2. DENSE RIGHT UPPER LOBE INFILTRATE, UNCHANGED.
[2018-03-09] MEDS: Chlorhexidine MOUTHWASH 0.12%* 15 ML UDC TOPICAL SCH ×3 (16:18→21:06)
[2018-03-09] MEDS: methylPREDNISolone SOD 40 MG* 1 ML VIAL IV SCH ×2 (16:20→21:06)
[2018-03-09] MEDS ORDERED: Insulin LISPRO* 1 UNITS UNIT SUBCUT SCH (18:40)
[2018-03-09] MEDS: Azithromycin IV(*) 250 MG in NS 0.9% 250 ML* 250 ML IVPB SCH (20:00)
[2018-03-09] MEDS: fentaNYL* 50 MCG/ML 2 ML VIAL (100 MCG VIAL) IV SLOW PU PRN (21:13)
[2018-03-10] MEDS: Insulin LISPRO* 1 UNITS UNIT SUBCUT SCH ×5 (00:51→23:45)
[2018-03-10] MEDS: Chlorhexidine MOUTHWASH 0.12%* 15 ML UDC TOPICAL SCH ×7 (00:51→23:45)
[2018-03-10] MEDS: ZOSYN 3.375 GM Q8H per EXTENDED INFUSION IVPB SCH ×6 (01:00→18:06)
[2018-03-10] MEDS: Propofol* 100 ML IV SCH ×5 (03:35→18:44)
[2018-03-10] MEDS: methylPREDNISolone SOD 40 MG* 1 ML VIAL IV SCH ×3 (05:39→21:00)
[2018-03-10] MEDS: Heparin VIAL(*) 5000 UNITS/ML VIAL (FIVE THOUSAND) SUBCUT SCH ×3 (05:39→21:00)
[2018-03-10 06:44] LABS: ABS Basophils 0 10^3/ul (0-0.2); ABS Eosinophils 0 10^3/ul (0-0.6); ABS Lymphocytes 0.7 10^3/ul (1.0-4.8); ABS Monocytes 0.7 10^3/ul (0-0.8); ABS Neutrophils 17.5 10^3/ul (1.5-7.7); ABS Nucleated RBC 0 10^3/ul; Eosinophil % 0 % (0-6); Hematocrit 33 % (35-47); Lymphocyte % 3.6 % (25-47); Mean Corpuscular HGB Conc 34 g/dl (31-36); Mean Corpuscular Hemoglobin 30 pg (27-31); Mean Corpuscular Volume 88 fL (80-97); Mean Platelet Volume 8.1 um3 (7.4-10.4); Nucleated Red Blood Cells % 0; Platelet Count 235 10^3/ul (150-450); Red Blood Count 3.73 10^6/ul (4.0-5.4); Red Cell Distribution Width 15 % (10.5-15); White Blood Count 18.9 10^3/ul (3.5-10.8)
[2018-03-10] MEDS: fentaNYL* 50 MCG/ML 2 ML VIAL (100 MCG VIAL) IV SLOW PU PRN ×2 (06:59→20:59)
[2018-03-10 07:03] LABS: EGFR Non-African American 55.1 (>60)
--- NOTE | 2018-03-10 08:46 | RAD ---
INDICATION: Respiratory failure, pneumonia. COMPARISON: Comparison is made with a prior chest x-ray study from March 09, 2018. TECHNIQUE: A portable view of the chest was obtained. FINDINGS: There is an endotracheal tube which projects over the midline. The catheter tip is just below level of the clavicular heads. There is a nasogastric tube which projects over the midline. The distal portion of the catheter is not well-defined although likely is in the distal esophagus. There is a PICC present which demonstrate normal course. The catheter tip projects at the junction of the superior vena cava and right atrium. The heart is within normal limits in size. There is a dense right upper lobe infiltrate which is unchanged. There is blunting of the left costophrenic angle suggestive of a small pleural effusion likely unchanged. IMPRESSION: 1. RIGHT UPPER LOBE INFILTRATE, UNCHANGED. 2. THE DISTAL PORTION OF THE NASOGASTRIC TUBE IS NOT WELL-DEFINED AND IS LIKELY IN THE DISTAL ESOPHAGUS.
[2018-03-10] MEDS ORDERED: Famotidine SUSP* 40 MG/5 ML ORAL.SYRIN G TUBE ONE (09:00)
[2018-03-10] MEDS ORDERED: Spiriva Inhaler DEVICE* 1 EACH DEVICE INH ONE (09:00)
[2018-03-10] MEDS ORDERED: Docusate LIQ* 100 MG/10 ML UDC PO PRN (09:21)
[2018-03-10] MEDS: FLUoxetine CAP* 20 MG PO SCH (09:51)
[2018-03-10] MEDS: Gabapentin CAP(*) 300 MG PO SCH ×3 (09:52→21:00)
[2018-03-10] MEDS: Fluoxetine LIQ* 20 MG/5 ML UDC PO SCH (09:52)
[2018-03-10] MEDS ORDERED: Acetaminophen ADULT LIQ* 650 MG/20.3 ML UDC PO PRN (10:00)
[2018-03-10] MEDS ORDERED: Vancomycin Trough Check NOTE FOLLOW UP ONE (10:30)
--- NOTE | 2018-03-10 11:15 | PN ---
Progress Note - Progress Note Date of Service: 03/10/18 Note: CRITICAL CARE MEDICINE Date: 03/10/2018 Time: 1030 SUBJECTIVE: Patient seen and examined. PHYSICAL EXAM: Vital Signs: Reviewed. Hr ok 80s. 60%. aprv Neurologic: awakens some, rass -2. HEENT: pupils equal. Sclera anicteric. Trachea midline. Cardiovascular: S1 S2 distant. Respiratory: dec on R upper but otherwise distant and clear. no sqwalk yet Abdomen: Soft, nt. No r/g/r. Extremities: Warm. Access: picc LABS: Reviewed. IMAGING: Reviewed. MEDICATIONS: Reviewed. ASSESSMENT: 62 F Acute hypoxic resp failure Dense Right sided pna, H influ Sepsis secondary to above anderson nonadherent with cpap tob use PLAN: Neurologic: tolerating with relatively higher dose prop then would like. utilize prn fent. add nicotine td. Cardiovascular: perfusing and demands stable. intravasc vol met and mildly interstitial up. can dc ivf. Respiratory: dense pna. will need considerable time still for this to liquify more. aprv doing well continued. bronch for pulm tolioet next 24-48h may be advantageous. pulm toliet. Lung protection bundle. copd adjunctives. Gastrointestinal:ogt adjusted. tf. sup. Renal/Metabolic: castrejon. lytes and fluid status ok. Infectious Disease: receiving zosyn for H flu. can f/u sens for de-escalation but ok with potent abx at present. azithro for 5 days for copd anti-inflam benefit Hematology: stable. hsq Endocrine: copd steroids. inc ssi Musculoskeletal: bedrest. skin precautions. Psych/Social: updated and expressed appreciation. Supportive and preventative care as ordered. SUP: H2 VTE prophylaxis: heparin Castrejon catheter given critical illness, monitoring needs for accurate assessment of BINDU and KDIGO criteria for critically ill patients and to avoid potential harms of urinary retention, skin breakdown/ulcers. Disposition: ICU Code Status: Full Critical Care Time: 45min FBere Shrestha DO
[2018-03-10] MEDS: Nicotine PATCH 14 MG/24 HR* PATCH TRANSDERM SCH (12:30)
[2018-03-10] MEDS: Azithromycin IV(*) 250 MG in NS 0.9% 250 ML* 250 ML IVPB SCH (19:46)
[2018-03-11] MEDS: Propofol* 100 ML IV SCH ×5 (00:58→19:53)
[2018-03-11] MEDS: fentaNYL* 50 MCG/ML 2 ML VIAL (100 MCG VIAL) IV SLOW PU PRN ×5 (01:17→22:08)
[2018-03-11] MEDS: ZOSYN 3.375 GM Q8H per EXTENDED INFUSION IVPB SCH ×6 (02:04→18:05)
[2018-03-11] MEDS: Chlorhexidine MOUTHWASH 0.12%* 15 ML UDC TOPICAL SCH ×5 (05:06→22:08)
[2018-03-11] MEDS: Nicotine Patch Removal NOTE FOLLOW UP SCH (05:19)
[2018-03-11] MEDS: Heparin VIAL(*) 5000 UNITS/ML VIAL (FIVE THOUSAND) SUBCUT SCH ×3 (05:19→22:09)
[2018-03-11] MEDS: methylPREDNISolone SOD 40 MG* 1 ML VIAL IV SCH ×2 (05:19→22:08)
[2018-03-11 05:40] LABS: Hematocrit 34 % (35-47); Hemoglobin 11.3 g/dl (12.0-16.0); Mean Corpuscular HGB Conc 33 g/dl (31-36); Mean Corpuscular Hemoglobin 29 pg (27-31); Mean Corpuscular Volume 88 fL (80-97); Mean Platelet Volume 8.6 um3 (7.4-10.4); Platelet Count 230 10^3/ul (150-450); Red Blood Count 3.86 10^6/ul (4.0-5.4); Red Cell Distribution Width 15 % (10.5-15); White Blood Count 11.4 10^3/ul (3.5-10.8)
[2018-03-11 05:54] LABS: EGFR Non-African American 72.9 (>60)
[2018-03-11] MEDS: Insulin LISPRO* 1 UNITS UNIT SUBCUT SCH ×3 (06:17→18:06)
[2018-03-11] MEDS: Fluoxetine LIQ* 20 MG/5 ML UDC PO SCH (08:43)
[2018-03-11] MEDS: Famotidine SUSP* 40 MG/5 ML ORAL.SYRIN G TUBE SCH (08:43)
[2018-03-11] MEDS: Nicotine PATCH 14 MG/24 HR* PATCH TRANSDERM SCH (08:44)
[2018-03-11] MEDS: Gabapentin CAP(*) 300 MG PO SCH ×3 (08:44→22:09)
--- NOTE | 2018-03-11 10:50 | PN ---
Progress Note - Progress Note Date of Service: 03/11/18 Note: CRITICAL CARE MEDICINE Date: 03/11/2018 Time: 1025 SUBJECTIVE: Patient seen and examined. PHYSICAL EXAM: Vital Signs: Reviewed. Hr ok 80s. 45%. aprv. good vol Neurologic: awakens some, but rass -2. sedation vacation pending HEENT: pupils equal. Sclera anicteric. Trachea midline. Cardiovascular: S1 S2 distant. Respiratory: dec on R upper still without rales Abdomen: Soft, nt. No r/g/r. Extremities: Warm. mild dep edema Access: picc LABS: Reviewed. IMAGING: Reviewed. MEDICATIONS: Reviewed. ASSESSMENT: 62 F Acute hypoxic resp failure Dense Right sided pna, H influ Sepsis secondary to above anderson nonadherent with cpap tob use PLAN: Neurologic: tolerating. lower prop today. utilize prn fent. on nicotine td. Cardiovascular: perfusing well. vol status up some but tolerable. off ivf. Respiratory: dense pna still taking time. see how she can work with secretions today when more awake and can cosider high level cpap to perhaps mobilize secretions more. Can consider hypertonic or mucomyst if not clearing. humidification. aprv otherwise. again bronch for pulm toliet may be warranted. Lung protection bundle. copd adjunctives. hopefully if can still improve somewhat next 48h-72hrs then can likely liberate and continued to work on pna clearance. Gastrointestinal: tf. sup. bowel regimen. Renal/Metabolic: castrejon. lytes and fluid status ok. Infectious Disease: receiving zosyn for H flu. but can de-escalate. azithro for 5 days for copd anti-inflam benefit Hematology: stable. hsq Endocrine: steroid taper. ssi Musculoskeletal: bedrest. skin precautions. Psych/Social: will update Supportive and preventative care as ordered. SUP: H2 VTE prophylaxis: heparin Castrejon catheter given critical illness, monitoring needs for accurate assessment of BINDU and KDIGO criteria for critically ill patients and to avoid potential harms of urinary retention, skin breakdown/ulcers. Disposition: ICU Code Status: Full Critical Care Time: 35min Mosiés Shrestha DO
[2018-03-11] MEDS: Potassium & Sodium Phos 250MG* = 1 PACKET G TUBE SCH ×2 (14:33→22:09)
[2018-03-11] MEDS: Azithromycin IV(*) 250 MG in NS 0.9% 250 ML* 250 ML IVPB SCH (19:57)
[2018-03-12] MEDS: Insulin LISPRO* 1 UNITS UNIT SUBCUT SCH ×5 (00:23→23:59)
[2018-03-12] MEDS: Chlorhexidine MOUTHWASH 0.12%* 15 ML UDC TOPICAL SCH ×6 (01:37→22:00)
[2018-03-12] MEDS: ZOSYN 3.375 GM Q8H per EXTENDED INFUSION IVPB SCH ×6 (01:37→17:43)
[2018-03-12] MEDS: Propofol* 100 ML IV SCH ×6 (04:17→21:00)
[2018-03-12] MEDS: Heparin VIAL(*) 5000 UNITS/ML VIAL (FIVE THOUSAND) SUBCUT SCH ×3 (05:22→22:00)
[2018-03-12 06:00] LABS: EGFR Non-African American 110.1 (>60)
[2018-03-12] MEDS: Nicotine Patch Removal NOTE FOLLOW UP SCH (06:00)
[2018-03-12] MEDS: Nicotine PATCH 14 MG/24 HR* PATCH TRANSDERM SCH (08:06)
[2018-03-12] MEDS: Fluoxetine LIQ* 20 MG/5 ML UDC PO SCH (08:06)
[2018-03-12] MEDS: Gabapentin CAP(*) 300 MG PO SCH ×3 (08:06→22:00)
[2018-03-12] MEDS: Famotidine SUSP* 40 MG/5 ML ORAL.SYRIN G TUBE SCH (08:06)
[2018-03-12] MEDS: methylPREDNISolone SOD 40 MG* 1 ML VIAL IV SCH ×2 (08:06→22:00)
[2018-03-12] MEDS: Potassium & Sodium Phos 250MG* = 1 PACKET G TUBE SCH ×3 (08:06→22:00)
--- NOTE | 2018-03-12 08:20 | PN ---
Date of Service: 03/12/18 - [facility] progress note Critical Care Services: Pt seen and examined at bedside. No acute events o/n. Vital signs, labs, CXR was reviewed Vital Signs: Temp Pulse Resp BP SpO2 FiO2 99.7 F 66 14 142/100 98 45 03/12/18 06:30 03/12/18 06:30 03/12/18 03:00 03/12/18 06:30 03/12/18 06:30 03/12 04:00 Physical Exam: Gen: Pt in NAD, sedated, responds to verbal stimuli HEENT:PERRLA, No JVD Lungs: Diminished air entry b/l, rhonchi + rt side Cardiac: S1, S2 +, regular Abdomen: Soft, BS+ Extremities: No edema, withdraws to painful stimuli Neuro: Sedated, responds to verbal stimuli and touch Skin: No rash or bruise Fluid Balance (Past 24 Hours): I= 2930 L=6979 Net 1787 Intake & Output 03/10/18 03/11/18 03/12/18 03/13/18 06:59 06:59 06:59 06:59 Intake Total 5639.8 2190 2930 Output Total 658 486 0206 Balance 4684.8 1300 1787 Weight 213 lb 13.574 oz 221 lb 1.978 oz 221 lb 5.506 oz Intake: IV Fluids 4387.5 525 667 ABX - AZITHROMYCIN 250 260 ABX - ZOSYN 210 LR 1773.3 130 NS (0.9%) 2614.2 145 197 IVPB 604 325 113 ABX - AZITHROMYCIN 270 ABX - ZOSYN 334 325 NS (0.9%) 113 Medicated IV 523.3 642 1059 CC - Norepinephrine/ 158.3 Levophed CC - Propofol/Diprivan 598 350 8618 Oral 50 0 Tube Feeding 458 696 Tube Feeding Flush Amount 75 40 395 NG Tube Irrigate Amount 200 Output: Urine 475 50 Castrejon 323 863 6263 Labs: Laboratory Results - last 24 hr 03/11/18 03/11/18 03/12/18 12:02 18:00 00:17 Sodium Potassium Chloride Carbon Dioxide Anion Gap BUN Creatinine Est GFR ( Amer) Est GFR (Non-Af Amer) BUN/Creatinine Ratio Glucose POC Glucose (mg/dL) 208 H 204 H 183 H Calcium Phosphorus Magnesium 03/12/18 03/12/18 05:33 06:13 Sodium 134 L Potassium 4.1 Chloride 101 Carbon Dioxide 25 Anion Gap 8 BUN 22 Creatinine 0.56 Est GFR ( Amer) 141.5 Est GFR (Non-Af Amer) 110.1 BUN/Creatinine Ratio 39.3 H Glucose 217 H POC Glucose (mg/dL) 220 H Calcium 8.2 L Phosphorus 2.2 L Magnesium 1.7 L Studies: CXR: Was personally reviewed- ETT in place, improvement in Rt sided air space opacity Nutrition: Tube feeds, tolerating well Impression: 62 y o f, current smoker with h/o COPD, CHF, CVA with rt sided weakness, 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 1. Acute hypoxic resp failure sec to PNA 2. Rt sided PNA- ? Aspiration 3. S/p intubation requiring mechanical ventilation 4.H/o CHF and COPD 5.H/o dysphagia and wt loss, will need out pt evaluation 6. KARLI on CPAP, not complaint 7. Smoking status Plan: 1. Neuro: H/o CVA with rt hemiparesis. Pt is sedated with Propofol, receiving Fentanyl prn for pain. Sedation vacation this morning. Pt responsive, was restless, started back on sedation. Will hold sedation in am for possible extubation 2. Resp: Intubated for hypoxic resp failure sec to PNA. CXR showed improved aeration, having thick secretions. Will assess need for bronchoscopy. FiO2 requirements coming down. Doing well on APRV, weaning trial today. c/w nebs, pulm toilet. C/w IV solumedrol, will start taper. CT chest showed rt upperlobe, middle lobe PNA and atelctaisis of RLL with mildly enlarged mediastinal and hilar nodes. No other suspicious lesions or masses noted, signs of pulm HTN noted. On Nicotine patches. 3. CVS: BP elevated this am. Was hypotensive on admission sec to sepsis. BP elevated this am. Fentanyl given for possible pain. She is on Norvasc, Imdur and Spironolactone at home. Home BP meds were restarted. She has h/o CHF and had positive troponins at admission, likely sec to sepsis. Will need to achieve negative fluid balance. Not receiving IVF. Will change IV meds to po 4. GI: c/w tube feeds, will hold if pt ready for extubation. Will need swallow evaluation given h/o dysphagia, will need ENT evaluation as out pt givne h/o wt loss, smoking status and chocking while eating 5.Renal: Good UO, no electrolyte abnormalities. Has castrejon catheter currently 6. Endo: H/o borderline DM, BS elevated currently sec to being on steroids. SS insulin. 7.Haem: Anemia, likely sec to chronic disease. Leucocytosis trending down 8.ID: Aspiration PNA versus CAP sec to H.influenza, was in septic shock on admission, improving. Blood cx positive for H.influenza, sputum cx were not sent. Will send sputum cx. On Azithromycin and Zosyn. Has received 5 day course of Azithromycin as of today. Will d/c, and c/w Zosyn to complete 8 day course. 9. Supportive and preventive care as ordered Critical Care Time: 35 min
[2018-03-12] MEDS: fentaNYL* 50 MCG/ML 2 ML VIAL (100 MCG VIAL) IV SLOW PU PRN ×2 (08:51→18:13)
--- NOTE | 2018-03-12 09:05 | RAD ---
Indication: Pneumonia, respiratory failure. Single frontal view of the chest performed at 0608 hours was reviewed. Comparison is made with previous exam dated March 10, 2018. Right upper lobe and right lower lobe infiltrates consistent with pneumonia is again identified. Left lung field is clear. Tubes and lines appear to BE in appropriate position. ET tube is in appropriate location. IMPRESSION: RIGHT UPPER LOBE AND RIGHT BASILAR PNEUMONIA. FINDINGS ARE UNCHANGED FROM MARCH 10, 2018.
[2018-03-12] MEDS: amLODIPine TAB* 5 MG PO SCH (11:08)
[2018-03-12] MEDS: Spironolactone TAB* 25 MG PO SCH (11:08)
[2018-03-12] MEDS ORDERED: Isosorbide Mononitrate ER TAB* 60 MG PO SCH (11:15)
[2018-03-12] MEDS: Azithromycin IV(*) 250 MG in NS 0.9% 250 ML* 250 ML IVPB SCH (20:04)
[2018-03-13] MEDS: Propofol* 100 ML IV SCH ×6 (01:21→21:36)
[2018-03-13] MEDS: Chlorhexidine MOUTHWASH 0.12%* 15 ML UDC TOPICAL SCH ×6 (01:21→21:45)
[2018-03-13] MEDS: ZOSYN 3.375 GM Q8H per EXTENDED INFUSION IVPB SCH ×6 (01:22→19:22)
[2018-03-13] MEDS: Heparin VIAL(*) 5000 UNITS/ML VIAL (FIVE THOUSAND) SUBCUT SCH ×3 (05:29→21:57)
[2018-03-13] MEDS: Nicotine Patch Removal NOTE FOLLOW UP SCH (05:30)
[2018-03-13] MEDS: Insulin LISPRO* 1 UNITS UNIT SUBCUT SCH ×3 (06:02→18:32)
[2018-03-13] MEDS: fentaNYL* 50 MCG/ML 2 ML VIAL (100 MCG VIAL) IV SLOW PU PRN (06:10)
[2018-03-13] MEDS: Albuterol 2.5 MG/3 ML NEB.SOL* (0.083%) INH PRN (07:51)
[2018-03-13] MEDS: Albuterol/Ipratropium NEB.SOL* Albuterol 2.5 MG/Ipratropium 0.5 MG 3 ML INH PRN (07:51)
[2018-03-13 08:50] LABS: Urine Appearance Clear; Urine Blood 2+ (Negative); Urine Color Yellow; Urine Ketones Negative (Negative); Urine Protein 1+(30 mg/dL) (Negative); Urine Specific Gravity 1.033 (1.010-1.030); Urine Urobilinogen Negative (Negative)
[2018-03-13] MEDS: Fluoxetine LIQ* 20 MG/5 ML UDC PO SCH (08:56)
[2018-03-13] MEDS: Famotidine SUSP* 40 MG/5 ML ORAL.SYRIN G TUBE SCH (08:56)
[2018-03-13] MEDS: Nicotine PATCH 14 MG/24 HR* PATCH TRANSDERM SCH (08:57)
[2018-03-13] MEDS: amLODIPine TAB* 5 MG PO SCH (08:57)
[2018-03-13] MEDS: Gabapentin CAP(*) 300 MG PO SCH ×3 (08:57→21:45)
[2018-03-13] MEDS: Spironolactone TAB* 25 MG PO SCH (08:57)
[2018-03-13] MEDS: methylPREDNISolone SOD 40 MG* 1 ML VIAL IV SCH ×2 (08:57→21:45)
[2018-03-13] MEDS: Potassium & Sodium Phos 250MG* = 1 PACKET G TUBE SCH ×3 (08:57→21:45)
[2018-03-13] MEDS ORDERED: Furosemide IV* 10 MG/ML VIAL (40 MG) IV ONE (09:24)
[2018-03-13] MEDS ORDERED: Furosemide IV* 10 MG/ML VIAL (40 MG) ONE (09:26)
--- NOTE | 2018-03-13 09:39 | RAD ---
Indication: Endotracheal tube positioning Single frontal view of the chest performed at 0807 hours was reviewed. Comparison is made with previous exam dated March 12, 2018. No mediastinal shift is noted. Right-sided PICC line is in place. Airspace disease in the right upper lobe is noted. Left pleural effusion is noted. ET tube appears to BE in appropriate location approximately T3. Nasogastric tube is in place. IMPRESSION: RIGHT UPPER LOBE PNEUMONIA AND LEFT PLEURAL EFFUSION ARE UNCHANGED. TUBES AND LINES APPEAR IN UNCHANGED POSITION.
--- NOTE | 2018-03-13 09:39 | PN ---
Date of Service: 03/13/18 - [facility] note Critical Care Services: Pt seen and examined at bedside. No acute events o/n. Had low grade fever. Has thick, white secretions Vitals, labs, reviewed Vital Signs: Temp Pulse Resp BP SpO2 FiO2 99.1 F 73 19 150/99 98 30 03/13/18 08:00 03/13/18 08:00 03/13/18 07:53 03/13/18 08:00 03/13/18 08:00 03/13 07:53 Physical Exam: Gen: Pt is sedated, wakes up when propofol is held HEENT:PERRLA, No JVD, ETT in place Lungs: Dimnished air entry at bases R>L Cardiac: S1, S2+, regular Abdomen: Soft, BS+ Extremities: edema + Neuro: Sedated on propofol, opens eyes when sedation held Fluid Balance (Past 24 Hours): I= 2724 O= 1250 Net 1474 Intake & Output 03/11/18 03/12/18 03/13/18 03/14/18 06:59 06:59 06:59 06:59 Intake Total 2190 2930 2724.5 0 Output Total 890 1143 1250 100 Balance 1300 1787 1474.5 -100 Weight 221 lb 1.978 oz 221 lb 5.506 oz 224 lb 10.417 oz Intake: IV Fluids 525 667 615.5 ABX - AZITHROMYCIN 250 260 260 ABX - ZOSYN 210 216.5 LR 130 NS (0.9%) 145 197 139 IVPB 325 113 217 ABX - ZOSYN 325 217 NS (0.9%) 113 Medicated IV 642 1059 712 CC - Propofol/Diprivan 642 1059 712 Oral 0 0 Tube Feeding 458 696 583 Tube Feeding Flush Amount 40 395 497 NG Tube Irrigate Amount 200 100 Output: Urine 50 Castrejon 840 1143 1250 100 Labs: Laboratory Results - last 24 hr 03/12/18 03/12/18 03/12/18 12:17 17:37 23:52 POC Glucose (mg/dL) 239 H 175 H 195 H Urine Color Urine Appearance Urine pH Ur Specific Renner Urine Protein Urine Ketones Urine Blood Urine Nitrate Urine Bilirubin Urine Urobilinogen Ur Leukocyte Esterase Urine WBC (Auto) Urine RBC (Auto) Ur Squamous Epith Cells Urine Bacteria Urine Glucose Urine Ascorbic Acid 03/13/18 03/13/18 05:56 08:30 POC Glucose (mg/dL) 198 H Urine Color Yellow Urine Appearance Clear Urine pH 5.0 Ur Specific Renner 1.033 H Urine Protein 1+(30 mg/dl) A Urine Ketones Negative Urine Blood 2+ A Urine Nitrate Negative Urine Bilirubin Negative Urine Urobilinogen Negative Ur Leukocyte Esterase Negative Urine WBC (Auto) Trace(0-5/hpf) Urine RBC (Auto) 3+(>10/hpf) A Ur Squamous Epith Cells Present A Urine Bacteria Absent Urine Glucose Negative Urine Ascorbic Acid * A Studies: CXR: was personally reviewed- ETT and OGT in place, improved aeration on rt side , small rt effusion + Nutrition: Tube feeds Impression: 62 y o f, current smoker with h/o COPD, CHF, CVA with rt sided weakness, 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 1. Acute hypoxic resp failure sec to PNA, improved, FiO2 requirements decreased 2. Rt sided PNA- ? Aspiration likely etiology 3. S/p intubation requiring mechanical ventilation, weaning trial today 4.H/o CHF and COPD, not in acute exacerbation 5.H/o dysphagia and wt loss, will need out pt evaluation 6. KARLI on CPAP, not complaint 7. Smoking status on Nicotine supplementation Plan: Plan: 1. Neuro: H/o CVA with rt hemiparesis. Pt is sedated with Propofol, receiving Fentanyl prn for pain. Sedation vacation this morning for possible extubation. 2. Resp: Intubated for hypoxic resp failure sec to PNA. CXR showed improved aeration, small effusion and in pos fluid balance, will order Lasix. FiO2 requirements coming down. Doing well on APRV, weaning trial and possible extubation today. c/w nebs, pulm toilet. C/w IV solumedrol, will start taper post extubation. CT chest showed rt upperlobe, middle lobe PNA and atelctaisis of RLL with mildly enlarged mediastinal and hilar nodes. No other suspicious lesions or masses noted, signs of pulm HTN noted. On Nicotine supplementation. 3. CVS: BP meds restarted except for Imdur which could not be given through OGT. She is on Norvasc and Spironolactone. She has h/o CHF and had positive troponins at admission, likely sec to sepsis. Lasix, achieve negative fluid balance. Not receiving IVF. Will change IV meds to po 4. GI: Tube feeds, held for extubation. Will need swallow evaluation given h/o dysphagia, will need ENT evaluation as out pt givne h/o wt loss, smoking status and chocking while eating 5.Renal: Good UO, no electrolyte abnormalities. Has castrejon catheter currently to prevent skin breakdown given bed ridden status 6. Endo: H/o borderline DM, BS elevated currently sec to being on steroids. SS insulin. 7.Haem: Anemia, likely sec to chronic disease. Leucocytosis trending down 8.ID: Aspiration PNA versus CAP sec to H.influenza, was in septic shock on admission, improving. Blood cx positive for H.influenza, sputum cx wgrew mold, likely airway colonization. Completed Azithromycin, c/w Zosyn to complete 8 day course. 9. Supportive and preventive care as ordered Critical Care Time: 30 min
[2018-03-13 14:52] LABS: Hematocrit 36 % (35-47); Hemoglobin 12.1 g/dl (12.0-16.0); Mean Corpuscular HGB Conc 34 g/dl (31-36); Mean Corpuscular Hemoglobin 29 pg (27-31); Mean Corpuscular Volume 86 fL (80-97); Platelet Count 229 10^3/ul (150-450); Red Blood Count 4.14 10^6/ul (4.0-5.4); Red Cell Distribution Width 14 % (10.5-15); White Blood Count 12.6 10^3/ul (3.5-10.8)
[2018-03-13 15:08] LABS: EGFR Non-African American 83.7 (>60)
[2018-03-13] MEDS ORDERED: Magnesium Sulfate IV* 3 GM in NS 0.9% 100 ML* 100 ML IVPB ONE (19:57)
[2018-03-13] MEDS ORDERED: NS 0.9% 100 ML* 100 ML ONE (20:24)
[2018-03-13] MEDS: Azithromycin IV(*) 250 MG in NS 0.9% 250 ML* 250 ML IVPB SCH (21:23)
[2018-03-14] MEDS: Insulin LISPRO* 1 UNITS UNIT SUBCUT SCH ×4 (00:24→18:11)
[2018-03-14] MEDS: Chlorhexidine MOUTHWASH 0.12%* 15 ML UDC TOPICAL SCH ×4 (00:25→12:31)
[2018-03-14] MEDS: Propofol* 100 ML IV SCH ×3 (01:07→07:04)
[2018-03-14] MEDS: ZOSYN 3.375 GM Q8H per EXTENDED INFUSION IVPB SCH ×6 (03:23→18:09)
[2018-03-14] MEDS: Heparin VIAL(*) 5000 UNITS/ML VIAL (FIVE THOUSAND) SUBCUT SCH ×3 (05:25→22:19)
[2018-03-14 05:45] LABS: Hematocrit 36 % (35-47); Hemoglobin 12.3 g/dl (12.0-16.0); Mean Corpuscular HGB Conc 34 g/dl (31-36); Mean Corpuscular Hemoglobin 29 pg (27-31); Mean Corpuscular Volume 86 fL (80-97); Mean Platelet Volume 8.2 um3 (7.4-10.4); Platelet Count 242 10^3/ul (150-450); Red Blood Count 4.22 10^6/ul (4.0-5.4); Red Cell Distribution Width 14 % (10.5-15); White Blood Count 13.8 10^3/ul (3.5-10.8)
[2018-03-14] MEDS: Nicotine Patch Removal NOTE FOLLOW UP SCH (06:21)
[2018-03-14] MEDS: Albuterol/Ipratropium NEB.SOL* Albuterol 2.5 MG/Ipratropium 0.5 MG 3 ML INH PRN (07:20)
[2018-03-14] MEDS ORDERED: Magnesium Sulfate 2 GM IV* 2 GM/50 ML BAG IVPB ONE (08:24)
[2018-03-14] MEDS: Fluoxetine LIQ* 20 MG/5 ML UDC PO SCH (08:25)
[2018-03-14] MEDS: Nicotine PATCH 14 MG/24 HR* PATCH TRANSDERM SCH (08:25)
[2018-03-14] MEDS: Famotidine SUSP* 40 MG/5 ML ORAL.SYRIN G TUBE SCH (08:26)
[2018-03-14] MEDS: Spironolactone TAB* 25 MG PO SCH (08:26)
[2018-03-14] MEDS: Gabapentin CAP(*) 300 MG PO SCH ×3 (08:26→22:18)
[2018-03-14] MEDS: Potassium & Sodium Phos 250MG* = 1 PACKET G TUBE SCH ×3 (08:26→22:19)
[2018-03-14] MEDS: amLODIPine TAB* 5 MG PO SCH (08:26)
[2018-03-14] MEDS: methylPREDNISolone SOD 40 MG* 1 ML VIAL IV SCH ×2 (08:27→22:18)
--- NOTE | 2018-03-14 08:31 | PN ---
Date of Service: 03/14/18 - [facility] progress note Critical Care Services: Pt seen and examined at bedside. Overnight events noted. Had short run of junctional rhythm last night, quickly resolved. Did well on spontaneous trial yesterday, is sedated however is able to respond appropriately when sedation was held yesterday. Active Medications Generic Name Dose Route Start Last Admin Trade Name Freq PRN Reason Stop Dose Admin Acetaminophen 650 mg 03/10/18 10:00 Tylenol Adult Liq* PO Q4H PRN FEVER/PAIN Al Hydrox/Mg Hydrox/Simethicone 30 ml 03/08/18 20:21 Maalox Plus* PO Q6H PRN INDIGESTION Albuterol 2.5 mg 03/08/18 20:26 03/13/18 07:51 Ventolin 2.5 Mg/3 Ml Neb.Flakita* INH 2.5 mg Q2H PRN Administration SOB/WHEEZING Albuterol/Ipratropium 1 neb 03/08/18 20:26 03/14/18 07:20 Duoneb (Albuterol 2.5 Mg/Ipratropium 0.5 Mg) INH 1 neb Q4H PRN Administration SOB/WHEEZING Amlodipine Besylate 5 mg 03/12/18 11:15 03/14/18 08:26 Norvasc Tab* PO 5 mg DAILY JONATHAN Administration Chlorhexidine Gluconate 15 ml 03/09/18 13:00 03/14/18 08:26 Peridex Mouth Wash 0.12%* TOPICAL 15 ml Q4H JONATHAN Administration Device 1 each 03/08/18 20:37 Nicotine Mouth Piece* INH .USE WITH NICOTROL PRN CRAVING Dextrose 12.5 gm 03/08/18 20:37 D50w Syringe 50 Ml* IV PUSH .FOR FS < 60 - SS PRN FS < 60 Docusate Sodium 100 mg 03/10/18 09:21 03/10/18 21:01 Colace Liq* PO 100 mg BID PRN Administration CONSTIPATION Famotidine 20 mg 03/11/18 09:00 03/14/18 08:26 Pepcid Susp* G TUBE 20 mg DAILY JONATHAN Administration Fentanyl Citrate 50 mcg 03/09/18 13:46 03/13/18 06:10 Fentanyl* IV SLOW PU 50 mcg Q1H PRN Administration PAIN Fluoxetine HCl 60 mg 03/11/18 09:00 03/14/18 08:25 Fluoxetine Liq* PO 60 mg QAM JONATHAN Administration Gabapentin 300 mg 03/08/18 21:00 03/14/18 08:26 Neurontin Cap(*) PO 300 mg TID JONATHAN Administration Heparin Sodium (Porcine) 5,000 units 03/08/18 22:00 03/14/18 05:25 Heparin Vial(*) SUBCUT 5,000 units Q8HR JONATHAN Administration Heparin Sodium (Porcine) 1 ml 03/09/18 18:00 03/14/18 05:25 Heparin Flush Picc/Ml/Cvc(*) FLUSH Not Given 0600,1800 [facility] Protocol Piperacillin Sod/Tazobactam 100 mls @ 25 mls/hr 03/09/18 02:00 03/14/18 03:23 Sod 3.375 gm/ Sodium Chloride IVPB 25 mls/hr Q8H JONATHAN Administration Propofol 100 mls @ 0 mls/hr 03/09/18 15:00 03/14/18 07:04 Diprivan* IV 22.6 mls/hr .(Initial Rate) JONATHAN Administration Protocol Per Protocol Magnesium Sulfate 2 gm in 50 mls @ 50 mls/hr 03/14/18 08:24 Magnesium Sulfate 2 Gm Iv* IVPB 03/14/18 09:23 ONCE ONE Insulin Human Lispro 0 units 03/10/18 12:00 03/14/18 06:20 Humalog* SUBCUT 6 units Q6HR JONATHAN Administration Protocol Methylprednisolone Sodium Succinate 40 mg 03/11/18 21:00 03/14/18 08:27 Solu-Medrol 40 Mg IV 40 mg BID JONATHAN Administration Morphine Sulfate 2 mg 03/09/18 09:59 Morphine Vial* IV Q4H PRN PAIN Nicotine 1 patch 03/10/18 12:00 03/14/18 08:25 Nicotine Patch 14 Mg/24 Hr* TRANSDERM 1 patch DAILY JONATHAN Administration Ondansetron HCl 4 mg 03/09/18 06:00 03/09/18 11:57 Zofran Inj* IV 4 mg Q4H PRN Administration NAUSEA/VOMITING Pharmacy Consult 1 note 03/08/18 21:00 Zosyn Per Pharmacy* FOLLOW UP .ZOSYN PER PHARMACY [facility] Pharmacy Profile Note 1 note 03/11/18 06:00 03/14/18 06:21 Nicotine Patch Removal Note* FOLLOW UP 1 note 0600 JONATHAN Administration Potassium Phos/Sodium Phos 250 mg 03/11/18 14:00 03/14/18 08:26 Neutra Phos 250 Mg Chay* G TUBE 250 mg TID JONATHAN Administration Prochlorperazine Edisylate 5 mg 03/08/18 20:28 Compazine Inj* IV Q6H PRN NAUSEA/VOMITING Senna 1 tab 03/08/18 20:21 03/10/18 21:01 Senokot Tab* PO 1 tab BID PRN Administration CONSTIPATION Spironolactone 25 mg 03/12/18 11:15 03/14/18 08:26 Aldactone Tab* PO 25 mg DAILY JONATHAN Administration Vital Signs: Temp Pulse Resp BP SpO2 FiO2 99.0 F 77 19 130/95 97 35 03/14/18 06:00 03/14/18 07:20 03/14/18 07:20 03/14/18 06:00 03/14/18 07:20 03/14 07:20 Physical Exam: Gen: Sedated, comfortable in bed HEENT: PERRLA, ETT, OGT in place Lungs: Diminished air entry at bases, no rhonchi Cardiac: S1, S2+, regular Abdomen: Soft, BS+ Extremities: NO edema Neuro: Sedated, moves all extremities to pain Skin: No rash or bruise Fluid Balance (Past 24 Hours): I= 1213 O= 6640 Net -5427 Intake & Output 03/12/18 03/13/18 03/14/18 03/15/18 06:59 06:59 06:59 06:59 Intake Total 2930 2724.5 1213 Output Total 1143 1250 6640 Balance 1787 1474.5 -5427 Weight 221 lb 5.506 oz 224 lb 10.417 oz Intake: IV Fluids 667 615.5 424 ABX - AZITHROMYCIN 260 260 ABX - ZOSYN 210 216.5 KVO w/abx 269 NS (0.9%) 197 139 155 IVPB 113 217 110 ABX - ZOSYN 217 110 NS (0.9%) 113 Medicated IV 1059 712 365 CC - Propofol/Diprivan 1059 712 365 Oral 0 Tube Feeding 696 583 314 Tube Feeding Flush Amount 395 497 NG Tube Irrigate Amount 100 Output: Castrejon 1143 1250 6640 Labs: Laboratory Results - last 24 hr 03/13/18 03/13/18 03/13/18 08:30 12:17 14:45 WBC RBC Hgb Hct MCV MCH MCHC RDW Plt Count MPV Sodium 138 L Potassium 3.9 Chloride 97 L Carbon Dioxide 33 H Anion Gap 8 BUN 18 Creatinine 0.71 Est GFR ( Amer) 107.6 Est GFR (Non-Af Amer) 83.7 BUN/Creatinine Ratio 25.4 H Glucose 225 H POC Glucose (mg/dL) 236 H Calcium 8.2 L Magnesium 1.6 L Urine Color Yellow Urine Appearance Clear Urine pH 5.0 Ur Specific [place] 1.033 H Urine Protein 1+(30 mg/dl) A Urine Ketones Negative Urine Blood 2+ A Urine Nitrate Negative Urine Bilirubin Negative Urine Urobilinogen Negative Ur Leukocyte Esterase Negative Urine WBC (Auto) Trace(0-5/hpf) Urine RBC (Auto) 3+(>10/hpf) A Ur Squamous Epith Cells Present A Urine Bacteria Absent Urine Glucose Negative Urine Ascorbic Acid * A 03/13/18 03/13/18 03/14/18 14:45 18:18 05:20 WBC 12.6 H RBC 4.14 Hgb 12.1 Hct 36 MCV 86 MCH 29 MCHC 34 RDW 14 Plt Count 229 MPV 8.0 Sodium 136 L Potassium 4.3 Chloride 100 L Carbon Dioxide 34 H Anion Gap 2 BUN 17 Creatinine 0.68 Est GFR ( Amer) 113.1 Est GFR (Non-Af Amer) 88.0 BUN/Creatinine Ratio 25.0 H Glucose 226 H POC Glucose (mg/dL) 188 H Calcium 8.7 Magnesium Urine Color Urine Appearance Urine pH Ur Specific [place] Urine Protein Urine Ketones Urine Blood Urine Nitrate Urine Bilirubin Urine Urobilinogen Ur Leukocyte Esterase Urine WBC (Auto) Urine RBC (Auto) Ur Squamous Epith Cells Urine Bacteria Urine Glucose Urine Ascorbic Acid 03/14/18 05:20 WBC 13.8 H RBC 4.22 Hgb 12.3 Hct 36 MCV 86 MCH 29 MCHC 34 RDW 14 Plt Count 242 MPV 8.2 Sodium Potassium Chloride Carbon Dioxide Anion Gap BUN Creatinine Est GFR ( Amer) Est GFR (Non-Af Amer) BUN/Creatinine Ratio Glucose POC Glucose (mg/dL) Calcium Magnesium Urine Color Urine Appearance Urine pH Ur Specific [place] Urine Protein Urine Ketones Urine Blood Urine Nitrate Urine Bilirubin Urine Urobilinogen Ur Leukocyte Esterase Urine WBC (Auto) Urine RBC (Auto) Ur Squamous Epith Cells Urine Bacteria Urine Glucose Urine Ascorbic Acid Nutrition: Tube feeds, will hold for possible extubation today Impression: 62 y o f, current smoker with h/o COPD, CHF, CVA with rt sided weakness, 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 1. Acute hypoxic resp failure sec to PNA, improved, FiO2 requirements decreased 2. Rt sided PNA- ? Aspiration likely etiology, infiltrate improving 3. S/p intubation requiring mechanical ventilation, weaning trial and possible extuabtion today 4.H/o CHF and COPD, not in acute exacerbation 5. Lt pl effusion, from diastolic CHF 6. H/o dysphagia and wt loss, will need out pt evaluation 7. KARLI on CPAP, not complaint, will need to use NIPPV after extubation 7. Smoking status on Nicotine supplementation Plan: 1. Neuro: H/o CVA with rt hemiparesis. Pt is sedated with Propofol, receiving Fentanyl prn for pain. Hold sedation this morning for possible extubation. 2. Resp: Intubated for hypoxic resp failure sec to PNA. CXR showed improved aeration, received Lasix, in negative fluid balance this am. FiO2 requirements coming down. Will transition to spontaneous and possible extubation today. c/w nebs, pulm toilet. C/w IV solumedrol, will start taper post extubation. Signs of pulm HTN noted on CT chest, likely sec to COPD and KARLI. On Nicotine supplementation. 3. CVS: BP meds restarted except for Imdur which could not be given through OGT. She is on Norvasc and Spironolactone. She has h/o CHF and had positive troponins at admission, likely sec to sepsis. In negative fluid balance. Not receiving IVF. 4. GI: Tube feeds, held for extubation. Will need swallow evaluation given h/o dysphagia, will need ENT evaluation as out pt givne h/o wt loss, smoking status and chocking while eating 5.Renal: Good UO, no electrolyte abnormalities. Has castrejon catheter currently to prevent skin breakdown given bed ridden status 6. Endo: H/o borderline DM, BS elevated currently sec to being on steroids. SS insulin. 7.Haem: Anemia, likely sec to chronic disease. Leucocytosis likely from steroids 8.ID: Aspiration PNA versus CAP sec to H.influenza, was in septic shock on admission, improving. Blood cx positive for H.influenza, sputum cx grew mold, likely airway colonization. Completed Azithromycin, c/w Zosyn to complete 8 day course. 9. Supportive and preventive care as ordered 10. Castrejon catheter to prevent skin breakdown 11. IV access: PICC line Critical Care Time: 30 min
--- NOTE | 2018-03-14 09:00 | RAD ---
HISTORY: Pneumonia, endotracheal tube placement COMPARISONS: March 13, 2018 VIEWS: 1: frontal portable view of the chest at 8:48 AM FINDINGS: LINES AND TUBES: An endotracheal tube is noted with the tip overlying the trachea between the clavicles and the daniela. A gastric tube is noted, with the tip in the left upper quadrant in a prepyloric position.. A right-sided PICC line is noted with the tip overlying the superior vena cava. CARDIOMEDIASTINAL SILHOUETTE: The cardiomediastinal silhouette is normal for portable technique. PLEURA: There is blunting of left costophrenic angle. LUNG PARENCHYMA: There is persistent confluent alveolar opacification of the right midlung field, not significantly changed from the previous examination. ABDOMEN: The upper abdomen is clear. There is no subphrenic gas. BONES AND SOFT TISSUES: No bone or soft tissue abnormalities are noted. IMPRESSION: 1. LINES AND TUBES ABOVE. 2. PERSISTENT RIGHT MIDLUNG CONSOLIDATION. 3. SMALL LEFT PLEURAL EFFUSION.
[2018-03-14] MEDS: Albuterol 2.5 MG/3 ML NEB.SOL* (0.083%) INH PRN (09:10)
[2018-03-14] MEDS ORDERED: amLODIPine TAB* 5 MG PO ONE (14:39)
[2018-03-14] MEDS ORDERED: Furosemide IV* 10 MG/ML VIAL (40 MG) IV ONE (15:05)
--- NOTE | 2018-03-14 15:36 | PN ---
Progress Note - Progress Note Date of Service: 03/14/18 - Progress update Note: Pt was extubated around 9:30 am this am. Was extubated to BiPAP. Patient tolerated well, currently on nasal cannula and in NAD Patient passed bedside swallow evaluation, po meds being administered, official swallow evaluation is pending. Will d/c tube feeds and advance po diet as tolerated Mental status within normal limits Will place on BiPAP at night, pt uses CPAP at home Hypertensive, BP meds restarted c/w Nicotine patch C/w home meds Will monitor in ICU tonight
[2018-03-15] MEDS: Insulin LISPRO* 1 UNITS UNIT SUBCUT SCH ×5 (00:26→20:55)
[2018-03-15] MEDS: ZOSYN 3.375 GM Q8H per EXTENDED INFUSION IVPB SCH ×4 (02:57→10:19)
[2018-03-15] MEDS: Heparin VIAL(*) 5000 UNITS/ML VIAL (FIVE THOUSAND) SUBCUT SCH ×3 (06:54→20:55)
[2018-03-15 07:17] LABS: Hematocrit 36 % (35-47); Hemoglobin 11.9 g/dl (12.0-16.0); Mean Corpuscular HGB Conc 33 g/dl (31-36); Mean Corpuscular Hemoglobin 29 pg (27-31); Mean Corpuscular Volume 87 fL (80-97); Mean Platelet Volume 8.4 um3 (7.4-10.4); Platelet Count 248 10^3/ul (150-450); Red Blood Count 4.12 10^6/ul (4.0-5.4); Red Cell Distribution Width 14 % (10.5-15); White Blood Count 10.9 10^3/ul (3.5-10.8)
[2018-03-15 07:28] LABS: EGFR Non-African American 99.7 (>60)
[2018-03-15] MEDS: Nicotine Patch Removal NOTE FOLLOW UP SCH (07:40)
[2018-03-15] MEDS: Nicotine PATCH 14 MG/24 HR* PATCH TRANSDERM SCH (09:09)
[2018-03-15] MEDS: Potassium & Sodium Phos 250MG* = 1 PACKET G TUBE SCH (09:12)
[2018-03-15] MEDS: Fluoxetine LIQ* 20 MG/5 ML UDC PO SCH (09:14)
[2018-03-15] MEDS: methylPREDNISolone SOD 40 MG* 1 ML VIAL IV SCH ×2 (09:14→20:54)
[2018-03-15] MEDS: amLODIPine TAB* 5 MG PO SCH (09:18)
[2018-03-15] MEDS: Famotidine SUSP* 40 MG/5 ML ORAL.SYRIN G TUBE SCH (09:18)
[2018-03-15] MEDS: Gabapentin CAP(*) 300 MG PO SCH ×3 (09:18→20:55)
[2018-03-15] MEDS: Isosorbide Mononitrate ER TAB* 60 MG PO SCH (09:18)
[2018-03-15] MEDS: Spironolactone TAB* 25 MG PO SCH (09:19)
[2018-03-15] MEDS ORDERED: Docusate CAP* 100 MG PO PRN (11:00)
--- NOTE | 2018-03-15 12:35 | PN ---
Progress Note - Progress Note Date of Service: 03/15/18 Note: Progress Note Critical Care 24 hour events/significant events: -no complaints overnight; on NC 2 L now, extubated yesterday to NC -cough, mild sputum; no resp distress -afebrile, tmax 99.1 overnight Tele: NSR Vitals: Vital Signs Temp 99.1 F 03/15/18 11:00 Pulse 87 03/15/18 11:00 Resp 24 03/15/18 11:00 BP 121/81 03/15/18 10:00 Pulse Ox 95 03/15/18 11:00 Intake & Output 03/14/18 03/15/18 03/15/18 18:59 06:59 18:59 Intake Total 443.9 345.4 170 Output Total 4600 1335 100 Balance -4156.1 -989.6 70 Weight 207 lb 14.334 oz Intake: IV Fluids 85.9 47.4 KVO w/abx 47.4 NS (0.9%) 85.9 IVPB 55 198 KVO w/abx 198 Mag 55 Medicated IV 303 CC - Propofol/Diprivan 303 Oral 0 100 170 Output: Urine 600 Gonzalez 4000 1335 100 Other: Date of Last Bowel 03/14/18 Movement # Bowel Movements 2 Estimated Stool Amount Small O2/Vent: NC 2 L Infusions: heplock Medications: Acetaminophen (Tylenol Adult Liq*) 650 mg PO Q4H PRN PRN Reason: FEVER/PAIN Al Hydrox/Mg Hydrox/Simethicone (Maalox Plus*) 30 ml PO Q6H PRN PRN Reason: INDIGESTION Albuterol (Ventolin 2.5 Mg/3 Ml Neb.Flakita*) 2.5 mg INH Q2H PRN PRN Reason: SOB/WHEEZING Last Admin: 03/14/18 09:10 Dose: 2.5 mg Albuterol/Ipratropium (Duoneb (Albuterol 2.5 Mg/Ipratropium 0.5 Mg)) 1 neb INH Q4H PRN PRN Reason: SOB/WHEEZING Last Admin: 03/14/18 07:20 Dose: 1 neb Amlodipine Besylate (Norvasc Tab*) 10 mg PO DAILY JONATHAN Last Admin: 03/15/18 09:18 Dose: 10 mg Aspirin (Aspirin Ec Tab*) 81 mg PO DAILY JONATHAN Device (Nicotine Mouth Piece*) 1 each INH .USE WITH NICOTROL PRN PRN Reason: CRAVING Dextrose (D50w Syringe 50 Ml*) 12.5 gm IV PUSH .FOR FS < 60 - SS PRN PRN Reason: FS < 60 Docusate Sodium (Colace Cap*) 100 mg PO BID PRN PRN Reason: CONSTIPATION Famotidine (Pepcid Tab*) 20 mg PO DAILY [facility] Fluoxetine HCl (Prozac Cap*) 60 mg PO QAM [facility] Gabapentin (Neurontin Cap(*)) 300 mg PO TID [facility] Last Admin: 03/15/18 09:18 Dose: 300 mg Heparin Sodium (Porcine) (Heparin Vial(*)) 5,000 units SUBCUT Q8HR [facility] Last Admin: 03/15/18 06:54 Dose: 5,000 units Heparin Sodium (Porcine) (Heparin Flush Picc/Ml/Cvc(*)) 1 ml FLUSH 0600,1800 [facility] PRN Reason: Protocol Last Admin: 03/15/18 06:54 Dose: 1 ml Piperacillin Sod/Tazobactam (Sod 3.375 gm/ Sodium Chloride) 100 mls @ 25 mls/ hr IVPB Q8H [facility] Last Admin: 03/15/18 10:19 Dose: 25 mls/hr Insulin Human Lispro (Humalog*) 0 units SUBCUT Q6HR [facility] PRN Reason: Protocol Last Admin: 03/15/18 06:53 Dose: 3 units Isosorbide Mononitrate (Imdur Er Tab*) 60 mg PO DAILY [facility] Last Admin: 03/15/18 09:18 Dose: 60 mg Methylprednisolone Sodium Succinate (Solu-Medrol 40 Mg) 20 mg IV BID [facility] Morphine Sulfate (Morphine Vial*) 2 mg IV Q4H PRN PRN Reason: PAIN Nicotine (Nicotine Patch 14 Mg/24 Hr*) 1 patch TRANSDERM DAILY [facility] Last Admin: 03/15/18 09:09 Dose: 1 patch Ondansetron HCl (Zofran Inj*) 4 mg IV Q4H PRN PRN Reason: NAUSEA/VOMITING Last Admin: 03/09/18 11:57 Dose: 4 mg Pharmacy Consult (Zosyn Per Pharmacy*) 1 note FOLLOW UP .ZOSYN PER PHARMACY [facility] Pharmacy Profile Note (Nicotine Patch Removal Note*) 1 note FOLLOW UP 0600 [facility] Last Admin: 03/15/18 07:40 Dose: 1 note Potassium Phos/Sodium Phos (Neutra Phos 250 Mg Chay*) 250 mg PO TID [facility] Prochlorperazine Edisylate (Compazine Inj*) 5 mg IV Q6H PRN PRN Reason: NAUSEA/VOMITING Quetiapine Fumarate (Seroquel Tab*) 50 mg PO DAILY [facility] Senna (Senokot Tab*) 1 tab PO BID PRN PRN Reason: CONSTIPATION Last Admin: 03/10/18 21:01 Dose: 1 tab Spironolactone (Aldactone Tab*) 25 mg PO DAILY [facility] Last Admin: 03/15/18 09:19 Dose: 25 mg Physical Exam: General: awake, alert, no distress, no diaphoresis Head: normocephalic, atraumatic HEENT: no pallor, no icterus, moist mucous membranes Neck: soft, supple, no jvd, no stridor CVS: normal rate, regular, no murmur Resp: bilateral air entry, no rhales, no wheeze, no rhonchi, no acc muscle use Abdomen: soft, nontender, nondistended, bowel sounds present Ext: pulses+, warm, no edema Skin: intact, no breakdown, no dryness Neuro: awake, alert, orientedx3, moving all extremities, no gross focal deficit Labs: Laboratory Results - last 24 hr 03/14/18 03/14/18 03/15/18 00:17 18:03 00:17 WBC RBC Hgb Hct MCV MCH MCHC RDW Plt Count MPV Sodium Potassium Chloride Carbon Dioxide Anion Gap BUN Creatinine Est GFR ( Amer) Est GFR (Non-Af Amer) BUN/Creatinine Ratio Glucose POC Glucose (mg/dL) 162 H 191 H 184 H Calcium 03/15/18 03/15/18 03/15/18 06:40 06:45 06:45 WBC 10.9 H RBC 4.12 Hgb 11.9 L Hct 36 MCV 87 MCH 29 MCHC 33 RDW 14 Plt Count 248 MPV 8.4 Sodium 137 L Potassium 3.9 Chloride 100 L Carbon Dioxide 33 H Anion Gap 4 BUN 19 Creatinine 0.61 Est GFR ( Amer) 128.2 Est GFR (Non-Af Amer) 99.7 BUN/Creatinine Ratio 31.1 H Glucose 187 H POC Glucose (mg/dL) 188 H Calcium 8.4 L Imaging: cxr 03/14 - improving RML consolidation Assessment: 62 y o f, current smoker with h/o COPD, CHF, CVA with rt sided weakness, 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 Influenzae bacteremia -Severe Sepsis Chronic Diastolic LV dysfunction COPD KARLI on CPAP h/o CVA with right sided weakness Plan: Neuro- stable mental status. no sedation. awake/alert. delirium prec. CVS- hemodyn stable. bp stable. not tachycardic. no pressors. no IVF. IV abx continued. on oral antihypertensives. Appear euvolemic, s/p lasix x2 days daily. Hold lasix today, PRN as needed. Resp- NC, 2L, no distress. cough+, mild sputum+ but strong cough. CXR 03/14 with improving RML consolidation. Cont to wean fio2 to keep sat >92%. IV abx. WIll need swallow eval to see if aspiration if a risk factor here to pneumonia, may need modified diet. Wean IV solumedrol. Bronchodilators PRN. ID- afebrile. wbc decreasing. H.influenza bacteremia+. RML pneumonia likely from aspiration + CAP. on Zosyn (day 7). Change to Ceftriaxone 1gm IV daily for total of 10 days therapy, increase to 14 days if febrile. No other sources to indicate complicated bacteremia, mental status intact, no cellulitus. Could have been from RML pneumonia. GI- mechanical soft diet Renal- Cr okay. K okay. no acidosis. Lasix PRN as needed. Heme- anemia, hg stable. plt stable. Endo- BS stable. Musculsk- oob to chair, pt/ot. Wounds- none Nutrition- soft mechanical. speech/swallow eval. DVT prophylaxis: scds, heparin sq GI prophylaxis: pepcid Disposition: stable for transfer to monitored bed Code Status: full code Jaquan Thorne MD Sm[employer]ipe [employer] (Electronically Signed)
[2018-03-15] MEDS: cefTRIAXone(*) 1 GM in NS 0.9% 50 ML* 50 ML IVPB SCH (15:52)
[2018-03-15] MEDS: Potassium & Sodium Phos 250MG* = 1 PACKET PO SCH ×2 (16:02→20:56)
[2018-03-15] MEDS ORDERED: Insulin LISPRO* 1 UNITS UNIT SUBCUT ONE (18:19)
[2018-03-15] MEDS: Morphine VIAL* 4 MG/ML VIAL (1 ml vial) IV PRN (20:27)
--- NOTE | 2018-03-15 21:06 | RAD ---
INDICATION: Chest pain COMPARISON: March 14, 2018 TECHNIQUE: An AP portable view obtained at 2049 hours is submitted. FINDINGS: Bones/Soft Tissues: There are no acute bony findings. There is a right-sided PICC catheter. Cardiomediastinal: The cardiomediastinal silhouette is unchanged. Lungs: Is persistent linear change in the right chest most consistent with atelectasis. The remaining lung lujan are essentially clear. Pleura: There may be a small left-sided effusion. Other: None IMPRESSION: PERSISTENT LINEAR AIRSPACE DISEASE RIGHT CHEST LIKELY ATELECTASIS.
[2018-03-16] MEDS: Morphine VIAL* 4 MG/ML VIAL (1 ml vial) IV PRN ×2 (01:47→09:42)
[2018-03-16] MEDS: Heparin VIAL(*) 5000 UNITS/ML VIAL (FIVE THOUSAND) SUBCUT SCH ×3 (05:57→20:56)
[2018-03-16] MEDS: Nicotine Patch Removal NOTE FOLLOW UP SCH (06:13)
[2018-03-16] MEDS ORDERED: QUEtiapine TAB* 25 MG PO SCH (09:00)
[2018-03-16] MEDS: Insulin LISPRO* 1 UNITS UNIT SUBCUT SCH ×4 (09:26→20:56)
[2018-03-16] MEDS: Aspirin EC TAB* 81 MG TAB.EC PO SCH (09:26)
[2018-03-16] MEDS: amLODIPine TAB* 5 MG PO SCH (09:26)
[2018-03-16] MEDS: FLUoxetine CAP* 20 MG PO SCH (09:26)
[2018-03-16] MEDS: Famotidine TAB* 20 MG PO SCH (09:26)
[2018-03-16] MEDS: Nicotine PATCH 14 MG/24 HR* PATCH TRANSDERM SCH (09:27)
[2018-03-16] MEDS: Gabapentin CAP(*) 300 MG PO SCH ×3 (09:27→20:57)
[2018-03-16] MEDS: Isosorbide Mononitrate ER TAB* 60 MG PO SCH (09:27)
[2018-03-16] MEDS: Spironolactone TAB* 25 MG PO SCH (09:27)
[2018-03-16] MEDS: methylPREDNISolone SOD 40 MG* 1 ML VIAL IV SCH (09:27)
[2018-03-16] MEDS: Potassium & Sodium Phos 250MG* = 1 PACKET PO SCH ×3 (09:27→20:56)
--- NOTE | 2018-03-16 14:06 | PN ---
Subjective Date of Service: 03/16/18 Interval History: Pt feels tired. cough is resolving.. Objective Active Medications: Acetaminophen (Tylenol Adult Liq*) 650 mg PO Q4H PRN PRN Reason: FEVER/PAIN Al Hydrox/Mg Hydrox/Simethicone (Maalox Plus*) 30 ml PO Q6H PRN PRN Reason: INDIGESTION Albuterol (Ventolin 2.5 Mg/3 Ml Neb.Flakita*) 2.5 mg INH Q2H PRN PRN Reason: SOB/WHEEZING Last Admin: 03/14/18 09:10 Dose: 2.5 mg Albuterol/Ipratropium (Duoneb (Albuterol 2.5 Mg/Ipratropium 0.5 Mg)) 1 neb INH Q4H PRN PRN Reason: SOB/WHEEZING Last Admin: 03/14/18 07:20 Dose: 1 neb Amlodipine Besylate (Norvasc Tab*) 10 mg PO DAILY COUNTS INCLUDE 234 BEDS AT THE [facility] Last Admin: 03/16/18 09:26 Dose: 10 mg Aspirin (Aspirin Ec Tab*) 81 mg PO DAILY COUNTS INCLUDE 234 BEDS AT THE [facility] Last Admin: 03/16/18 09:26 Dose: 81 mg Device (Nicotine Mouth Piece*) 1 each INH .USE WITH NICOTROL PRN PRN Reason: CRAVING Dextrose (D50w Syringe 50 Ml*) 12.5 gm IV PUSH .FOR FS < 60 - SS PRN PRN Reason: FS < 60 Docusate Sodium (Colace Cap*) 100 mg PO BID PRN PRN Reason: CONSTIPATION Famotidine (Pepcid Tab*) 20 mg PO DAILY COUNTS INCLUDE 234 BEDS AT THE [facility] Last Admin: 03/16/18 09:26 Dose: 20 mg Fluoxetine HCl (Prozac Cap*) 60 mg PO QAM COUNTS INCLUDE 234 BEDS AT THE [facility] Last Admin: 03/16/18 09:26 Dose: 60 mg Gabapentin (Neurontin Cap(*)) 300 mg PO TID COUNTS INCLUDE 234 BEDS AT THE [facility] Last Admin: 03/16/18 14:01 Dose: 300 mg Heparin Sodium (Porcine) (Heparin Vial(*)) 5,000 units SUBCUT Q8HR COUNTS INCLUDE 234 BEDS AT THE [facility] Last Admin: 03/16/18 14:01 Dose: 5,000 units Heparin Sodium (Porcine) (Heparin Flush Picc/Ml/Cvc(*)) 1 ml FLUSH 0600,1800 COUNTS INCLUDE 234 BEDS AT THE [facility] PRN Reason: Protocol Last Admin: 05/16/18 05:58 Dose: 1 ml Ceftriaxone Sodium 1 gm/ (Sodium Chloride) 50 mls @ 200 mls/hr IVPB Q24H COUNTS INCLUDE 234 BEDS AT THE [facility] Stop: 03/22/18 13:59 Last Admin: 03/15/18 15:52 Dose: 200 mls/hr Insulin Human Lispro (Humalog*) 0 units SUBCUT ACHS COUNTS INCLUDE 234 BEDS AT THE [facility] PRN Reason: Protocol Last Admin: 03/16/18 14:01 Dose: 6 units Isosorbide Mononitrate (Imdur Er Tab*) 60 mg PO DAILY COUNTS INCLUDE 234 BEDS AT THE [facility] Last Admin: 03/16/18 09:27 Dose: 60 mg Methylprednisolone Sodium Succinate (Solu-Medrol 40 Mg) 20 mg IV BID COUNTS INCLUDE 234 BEDS AT THE [facility] Last Admin: 03/16/18 09:27 Dose: 20 mg Nicotine (Nicotine Patch 14 Mg/24 Hr*) 1 patch TRANSDERM DAILY COUNTS INCLUDE 234 BEDS AT THE [facility] Last Admin: 03/16/18 09:27 Dose: 1 patch Ondansetron HCl (Zofran Inj*) 4 mg IV Q4H PRN PRN Reason: NAUSEA/VOMITING Last Admin: 03/09/18 11:57 Dose: 4 mg Pharmacy Profile Note (Nicotine Patch Removal Note*) 1 note FOLLOW UP 0600 COUNTS INCLUDE 234 BEDS AT THE [facility] Last Admin: 03/16/18 06:13 Dose: 1 note Potassium Phos/Sodium Phos (Neutra Phos 250 Mg Chay*) 250 mg PO TID COUNTS INCLUDE 234 BEDS AT THE [facility] Last Admin: 03/16/18 14:01 Dose: 250 mg Prochlorperazine Edisylate (Compazine Inj*) 5 mg IV Q6H PRN PRN Reason: NAUSEA/VOMITING Last Admin: 03/16/18 12:24 Dose: 5 mg Quetiapine Fumarate (Seroquel Tab*) 50 mg PO DAILY COUNTS INCLUDE 234 BEDS AT THE [facility] Senna (Senokot Tab*) 1 tab PO BID PRN PRN Reason: CONSTIPATION Last Admin: 03/10/18 21:01 Dose: 1 tab Spironolactone (Aldactone Tab*) 25 mg PO DAILY COUNTS INCLUDE 234 BEDS AT THE [facility] Last Admin: 03/16/18 09:27 Dose: 25 mg Vital Signs - 8 hr 03/16/18 03/16/18 03/16/18 08:00 08:07 09:27 Pulse Rate 70 Respiratory 20 16 20 Rate Blood Pressure 120/83 (mmHg) O2 Sat by Pulse 97 Oximetry 03/16/18 03/16/18 09:42 14:01 Pulse Rate Respiratory 20 16 Rate Blood Pressure (mmHg) O2 Sat by Pulse Oximetry Oxygen Devices in Use Now: Nasal Cannula Appearance: 62 yo f in NAD, AAOx3 Eyes: No Scleral Icterus, PERRLA Ears/Nose/Mouth/Throat: NL Teeth, Lips, Gums, Mucous Membranes Moist Neck: NL Appearance and Movements; NL JVP Respiratory: Symmetrical Chest Expansion and Respiratory Effort, - - distant breath sounds b/l, no wheezes Cardiovascular: NL Sounds; No Murmurs; No JVD Abdominal: NL Sounds; No Tenderness; No Distention, No Hepatosplenomegaly Lymphatic: No Cervical Adenopathy Extremities: No Edema, No Clubbing, Cyanosis Skin: No Rash or Ulcers, No Nodules or Sclerosis Neurological: Alert and Oriented x 3, - - minimally decreased motor in RUE Result Diagrams: 03/15/18 06:45 03/15/18 06:45 Additional Lab and Data: Lab Results 03/08/18 03/08/18 03/08/18 Range/Units 18:33 18:34 18:34 WBC 13.7 H (3.5-10.8) 10^3/ul RBC 4.59 (4.0-5.4) 10^6/ul Hgb 13.6 (12.0-16.0) g/dl Hct 39 (35-47) % MCV 86 (80-97) fL MCH 30 (27-31) pg MCHC 34 (31-36) g/dl RDW 15 (10.5-15) % Plt Count 246 (150-450) 10^3/ul MPV 7.8 (7.4-10.4) um3 Neut % (Auto) Not Reportable Lymph % (Auto) Not Reportable Cocke % (Auto) Not Reportable Eos % (Auto) Not Reportable Baso % (Auto) Not Reportable Absolute Neuts (auto) Not Reportable Absolute Lymphs (auto) Not Reportable Absolute Monos (auto) Not Reportable Absolute Eos (auto) Not Reportable Absolute Basos (auto) Not Reportable Absolute Nucleated RBC Not Reportable Immature Gran % 6 (0-9) % Neutrophils % 79 (38-83) % Band Neutrophils % 6 (0-8) % Lymphocytes % 8 L (25-47) % Monocytes % 7 (0-7) % Eosinophils % 0 (0-6) % Basophils % 0 (0-2) % Nucleated RBC % Not Reportable Abs Neuts (Manual) 10.8 H (1.5-7.7) 10^3/ul Abs Lymphs (Manual) 1.1 (1.0-4.8) 10^3/ul Abs Monocytes (Manual) 1.0 H (0-0.8) 10^3/ul Absolute Eos (Manual) 0 (0-0.6) 10^3/ul Abs Basophils (Manual) 0 (0-0.2) 10^3/ul Large Platelets Present Normal RBC Morphology Normal (Normal) INR (Anticoag Therapy) 1.18 H (0.77-1.02) D-Dimer, Quantitative 911 H (Less Than 230) ng/mL VBG pH (7.33-7.43) VBG pCO2 (41-51) mmHg VBG pO2 (35-45) mmHg VBG HCO3 (24-28) mmol/L VBG O2 Saturation (70-80) % VBG Base Excess (0-4) Sodium 136 L (139-145) mmol/L Potassium 3.1 L (3.5-5.0) mmol/L Chloride 102 (101-111) mmol/L Carbon Dioxide 24 (22-32) mmol/L Anion Gap 10 (2-11) mmol/L BUN 12 (6-24) mg/dL Creatinine 0.80 (0.51-0.95) mg/dL Est GFR ( Amer) 93.8 (>60) Est GFR (Non-Af Amer) 72.9 (>60) BUN/Creatinine Ratio 15.0 (8-20) Glucose 92 (70-100) mg/dL Lactic Acid (0.5-2.0) mmol/L Calcium 8.4 L (8.6-10.3) mg/dL Magnesium 1.0 L (1.9-2.7) mg/dL Total Bilirubin 1.30 H (0.2-1.0) mg/dL AST 12 L (13-39) U/L ALT 9 (7-52) U/L Alkaline Phosphatase 85 (34-104) U/L Total Creatine Kinase 86 (10-223) U/L Troponin I 0.00 (<0.04) ng/mL C-Reactive Protein 108.11 H (< 5.00) mg/L B-Natriuretic Peptide ( - 100) pg/mL Total Protein 6.6 (6.4-8.9) g/dL Albumin 3.3 (3.2-5.2) g/dL Globulin 3.3 (2-4) g/dL Albumin/Globulin Ratio 1.0 (1-3) 03/08/18 03/08/18 03/08/18 Range/Units 18:34 18:34 18:52 WBC (3.5-10.8) 10^3/ul RBC (4.0-5.4) 10^6/ul Hgb (12.0-16.0) g/dl Hct (35-47) % MCV (80-97) fL MCH (27-31) pg MCHC (31-36) g/dl RDW (10.5-15) % Plt Count (150-450) 10^3/ul MPV (7.4-10.4) um3 Neut % (Auto) Lymph % (Auto) Cocke % (Auto) Eos % (Auto) Baso % (Auto) Absolute Neuts (auto) Absolute Lymphs (auto) Absolute Monos (auto) Absolute Eos (auto) Absolute Basos (auto) Absolute Nucleated RBC Immature Gran % (0-9) % Neutrophils % (38-83) % Band Neutrophils % (0-8) % Lymphocytes % (25-47) % Monocytes % (0-7) % Eosinophils % (0-6) % Basophils % (0-2) % Nucleated RBC % Abs Neuts (Manual) (1.5-7.7) 10^3/ul Abs Lymphs (Manual) (1.0-4.8) 10^3/ul Abs Monocytes (Manual) (0-0.8) 10^3/ul Absolute Eos (Manual) (0-0.6) 10^3/ul Abs Basophils (Manual) (0-0.2) 10^3/ul Large Platelets Normal RBC Morphology (Normal) INR (Anticoag Therapy) (0.77-1.02) D-Dimer, Quantitative (Less Than 230) ng/mL VBG pH (7.33-7.43) VBG pCO2 (41-51) mmHg VBG pO2 (35-45) mmHg VBG HCO3 (24-28) mmol/L VBG O2 Saturation (70-80) % VBG Base Excess (0-4) Sodium (139-145) mmol/L Potassium (3.5-5.0) mmol/L Chloride (101-111) mmol/L Carbon Dioxide (22-32) mmol/L Anion Gap (2-11) mmol/L BUN (6-24) mg/dL Creatinine (0.51-0.95) mg/dL Est GFR ( Amer) (>60) Est GFR (Non-Af Amer) (>60) BUN/Creatinine Ratio (8-20) Glucose (70-100) mg/dL Lactic Acid 1.7 1.9 (0.5-2.0) mmol/L Calcium (8.6-10.3) mg/dL Magnesium (1.9-2.7) mg/dL Total Bilirubin (0.2-1.0) mg/dL AST (13-39) U/L ALT (7-52) U/L Alkaline Phosphatase (34-104) U/L Total Creatine Kinase (10-223) U/L Troponin I (<0.04) ng/mL C-Reactive Protein (< 5.00) mg/L B-Natriuretic Peptide 173 H ( - 100) pg/mL Total Protein (6.4-8.9) g/dL Albumin (3.2-5.2) g/dL Globulin (2-4) g/dL Albumin/Globulin Ratio (1-3) /06/18 Range/Units 19:29 WBC (3.5-10.8) 10^3/ul RBC (4.0-5.4) 10^6/ul Hgb (12.0-16.0) g/dl Hct (35-47) % MCV (80-97) fL MCH (27-31) pg MCHC (31-36) g/dl RDW (10.5-15) % Plt Count (150-450) 10^3/ul MPV (7.4-10.4) um3 Neut % (Auto) Lymph % (Auto) Cocke % (Auto) Eos % (Auto) Baso % (Auto) Absolute Neuts (auto) Absolute Lymphs (auto) Absolute Monos (auto) Absolute Eos (auto) Absolute Basos (auto) Absolute Nucleated RBC Immature Gran % (0-9) % Neutrophils % (38-83) % Band Neutrophils % (0-8) % Lymphocytes % (25-47) % Monocytes % (0-7) % Eosinophils % (0-6) % Basophils % (0-2) % Nucleated RBC % Abs Neuts (Manual) (1.5-7.7) 10^3/ul Abs Lymphs (Manual) (1.0-4.8) 10^3/ul Abs Monocytes (Manual) (0-0.8) 10^3/ul Absolute Eos (Manual) (0-0.6) 10^3/ul Abs Basophils (Manual) (0-0.2) 10^3/ul Large Platelets Normal RBC Morphology (Normal) INR (Anticoag Therapy) (0.77-1.02) D-Dimer, Quantitative (Less Than 230) ng/mL VBG pH 7.37 (7.33-7.43) VBG pCO2 47 (41-51) mmHg VBG pO2 12 L (35-45) mmHg VBG HCO3 23.6 L (24-28) mmol/L VBG O2 Saturation 18.5 L (70-80) % VBG Base Excess 1.2 (0-4) Sodium (139-145) mmol/L Potassium (3.5-5.0) mmol/L Chloride (101-111) mmol/L Carbon Dioxide (22-32) mmol/L Anion Gap (2-11) mmol/L BUN (6-24) mg/dL Creatinine (0.51-0.95) mg/dL Est GFR ( Amer) (>60) Est GFR (Non-Af Amer) (>60) BUN/Creatinine Ratio (8-20) Glucose (70-100) mg/dL Lactic Acid (0.5-2.0) mmol/L Calcium (8.6-10.3) mg/dL Magnesium (1.9-2.7) mg/dL Total Bilirubin (0.2-1.0) mg/dL AST (13-39) U/L ALT (7-52) U/L Alkaline Phosphatase (34-104) U/L Total Creatine Kinase (10-223) U/L Troponin I (<0.04) ng/mL C-Reactive Protein (< 5.00) mg/L B-Natriuretic Peptide ( - 100) pg/mL Total Protein (6.4-8.9) g/dL Albumin (3.2-5.2) g/dL Globulin (2-4) g/dL Albumin/Globulin Ratio (1-3) Microbiology and Other Data: Microbiology 03/12/18 10:40 Gram Stain - Final Sputum Sputum Culture - Final YEAST 03/13/18 08:30 Urine Culture - Final Urine No Growth (<1,000 CFU/mL) 03/09/18 17:57 Legionella Urinary Antigen - Final Urine Negative Legionella Antigen Streptococcus pneumoniae Ag Screen - Final Negative S. pneumo Antigen 03/09/18 01:05 Nasal Screen MRSA (PCR)(TRAMAINE) - Final Nasal Mrsa Not Detected Assess/Plan/Problems-Billing Assessment: Ms. Cummings is a 62 yo F who has a h/o COPD, past bowel resection for bowel ischemia in 2011, CVA with residual r sided weakness, presented with SOB, PNA(suspected aspiration), H. influenzae bacteremia/sepsis - Patient Problems (1) Aspiration pneumonia Comment: with acute hypoxemic respiratory failure requiring intubation( extubated on 03/14/18) and severe sepsis due to it cont Ceftriaxone Appreciate ID consult. Echo pending May need 02 at discharge (2) COPD exacerbation Comment: solu Medrol will be switched to Prednisone (3) HTN (hypertension) Comment: cont amlodipine and aldactone controlled (4) Hyperglycemia Comment: may be steroid induced. will get HbA1C. cont ISS (5) DVT prophylaxis Comment: - SQ heparin. Status and Disposition: inpatient. PMRU consult ongoing
[2018-03-16] MEDS: cefTRIAXone(*) 1 GM in NS 0.9% 50 ML* 50 ML IVPB SCH (14:36)
--- NOTE | 2018-03-16 15:41 | ECHO ---
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 Technical Comments: The study quality is fair. The study is technically limited due to patient body habitus. The study is technically limited due to the patient's history of COPD. The study is technically limited due to the patient's smoking history. Completed at 1420. Left Ventricle: The left ventricular chamber size is normal. Mild to moderate concentric left ventricular hypertrophy is observed. Global left ventricular wall motion and contractility are within normal limits. There is normal left ventricular systolic function. The estimated ejection fraction is 55-60%. Abnormal left ventricular diastolic filling is observed, consistent with impaired relaxation. Left Atrium: The left atrial chamber size is normal. Right Ventricle: The right ventricle wall thickness is moderately increased. The right ventricular cavity size is normal. The right ventricular global systolic function is low normal. Right Atrium: The right atrial cavity size is normal. Aortic Valve: There is mild thickening of the non coronary cusp. The aortic valve has degenerative changes. Systolic excursion of the aortic valve is normal. There is no evidence of aortic regurgitation. There is no evidence of aortic stenosis. There is no aortic vegetation present. Mitral Valve: The mitral valve leaflets are mildly thickened. There is a trace of mitral regurgitation. There is no evidence of mitral stenosis. No vegetation is observed on the mitral valve. Tricuspid Valve: The tricuspid valve leaflets are normal. There is moderate tricuspid regurgitation. There is evidence of moderate pulmonary hypertension. There is no tricuspid stenosis. No vegetation is observed on the tricuspid valve. Pulmonic Valve: The pulmonic valve structure is not well visualized. There is a trace pulmonic regurgitation. There is no pulmonic stenosis. Pericardium: There is no significant pericardial effusion. A pericardial fat pad is visualized. Aorta: There is no dilatation of the ascending aorta. The aortic arch is not well visualized. There is no dilation of the aortic root. Pulmonary Artery: The main pulmonary artery is not well visualized. Venous: The inferior vena cava appears normal in size. There is a greater than 50% respiratory change in the inferior vena cava dimension. Conclusions Mild to moderate concentric left ventricular hypertrophy is observed. Global left ventricular wall motion and contractility are within normal limits. The estimated ejection fraction is 55-60%. Abnormal left ventricular diastolic filling is observed, consistent with impaired relaxation. The right ventricle wall thickness is moderately increased. The right ventricular global systolic function is low normal. There is mild thickening of the non coronary cusp. There is a trace of mitral regurgitation. There is moderate tricuspid regurgitation. There is a trace pulmonic regurgitation. No evidence of vegetations. There is evidence of moderate pulmonary hypertension: 53 mmHg. No prior echo to compare available. Measurements Name Value Normal Range RVIDd (AP) 2D 2.9 cm (0.9 - 2.6) RVDdMajor (2D) 3.3 cm (2.2 - 4.4) RVAW (2D) 1 cm (0.2 - 0.5) RAd ISD 4CH 5 cm (3.4 - 4.9) RA (A4C)W 3.6 cm (2.9 - 4.6) IVSd (2D) 1.5 cm (0.6 - 1) LVPWd (2D) 1.3 cm (0.6 - 1) LVIDd (2D) 4 cm (3.6 - 5.4) LVIDs (2D) 2.9 cm - LV FS (2D) 28 % (25 - 45) Aortic Annulus 2 cm (1.4 - 2.6) Ao root diameter (2D) 3 cm (2.1 - 3.5) Ascending Ao 3.4 cm (2.1 - 3.4) LA dimension (AP) 2D 2.5 cm (2.3 - 3.8) LAd ISD 4CH 5.5 cm (2.9 - 5.3) LA ISD 4CH W 3.4 cm (2.5 - 4.5) Name Value Normal Range LA ESV SP 4CH (A/L) 28 ml - LA ESV SP 2CH (A/L) 42 ml - LA ESV BP (A/L) 34 ml - LA ESV BP (A/L) index 16.7 ml/m2 - LA ESV SP 4CH (MOD) 25 ml - LA ESV SP 2CH (MOD) 36 ml - Name Value Normal Range MV E-wave Vmax 0.86 m/sec - MV deceleration time 229 msec - MV A-wave Vmax 1.1 m/sec - MV E:A ratio 0.8 ratio - LV septal e' Vmax 0.07 m/sec - LV lateral e' Vmax 0.08 m/sec - LV E:e' septal ratio 12.3 ratio - LV E:e' lateral ratio 10.8 ratio - Name Value Normal Range AV Vmax 1.7 m/sec - AV VTI 31.9 cm - AV peak gradient 11 mmHg - AV mean gradient 6 mmHg - LVOT Vmax 1 m/sec - LVOT VTI 20.8 cm - LVOT peak gradient 4 mmHg - LVOT mean gradient 2 mmHg - Name Value Normal Range TR Vmax 3.5 m/sec - TR peak gradient 49 mmHg - RAP 3 mmHg - RVSP 52 mmHg - IVC diameter 1.5 cm - Name Value Normal Range PV Vmax 0.97 m/sec -
--- NOTE | 2018-03-16 20:43 | CONS ---
CONSULTATION REPORT: DATE OF CONSULT: 03/16/18 REQUESTING PHYSICIAN: Dr. Jade. CONSULTING SERVICE: Infectious Disease. REASON FOR CONSULT: Haemophilus influenza bacteremia. IMPRESSION: 1. Haemophilus influenza bacteremia in the setting of a right lower lobe infiltrate on chest x-ray and CT. I think this is the likely source. She does not have any prosthetic material or cardiac hardware present. Other considerations are infective endocarditis more likely with parainfluenza, she also does not have peripheral stigmata of infective endocarditis. 2. Question underlying immunosuppression seems less likely. 3. History of stroke with right-sided weakness. Her swallow evaluation here was unremarkable. RECOMMENDATIONS: 1. Continue ceftriaxone. We will obtain a transthoracic echocardiogram given that she had low pretest probability for infective endocarditis. If that is negative, I think it is unlikely she has an infective endocarditis. 2. SPEP and HIV antibody. HISTORY OF PRESENT ILLNESS: This is a 62-year-old woman with lupus, history of stroke, admitted with dyspnea. She was found to have a large right base infiltrate, eventually haemophilus in the blood cultures, did not grow in the sputum. She had been sick for a few days before she came and eventually had a little bit of hemoptysis before coming. She also notes some choking when she eats at home. She was in the ICU. She was receiving Zosyn which was switched to ceftriaxone. Her white count was initially 17,000, it is down to 10,000. She was initially febrile, though her fevers resolved. The urine legionella and pneumococcal antigens were negative. A urine culture was negative. PAST MEDICAL HISTORY: 1. Lupus. 2. Stroke. 3. COPD. Does not use supplemental oxygen. 4. Tobacco use. 5. Hypertension. 6. Fibromyalgia. 7. Status post partial colon and small bowel resection after obstruction. 8. Prediabetic. 9. Anxiety. 10. Depression. 11. Heart failure. 12. Arthritis. 13. Obstructive sleep apnea, not using CPAP. MEDICATIONS: 1. Tylenol. 2. Albuterol. 3. Amlodipine. 4. Aspirin. 5. Famotidine. 6. Fluoxetine. 7. Heparin flush through her PEG. 8. Heparin subcutaneous injection. 9. Insulin. 10. Isosorbide mononitrate. 11. Methylprednisolone. 12. Nicotine patch. 13. Seroquel. 14. Ceftriaxone 1 g a day. 15. Spironolactone. ALLERGIES: No known drug allergies. FAMILY HISTORY: No recurrent infections. Mother alive at 84. Father in his 60s. SOCIAL HISTORY: She lives with her in [place]. The is often traveling, also lives in [facility]. She denies injection drugs or sick contacts. REVIEW OF SYSTEMS: A 14-point review of systems all negative except as noted above in the history of present illness. PHYSICAL EXAM: Vital Signs: Temperature 37, heart rate 70, respiratory rate 18 , blood pressure 120/75, oxygen saturation 98% on room air. General: She is awake, and not in distress. Neurologic: She is oriented x3. Follows all commands, answers all questions. HEENT: There is no conjunctival hemorrhage. Oropharynx without lesions. Neck: Supple without mass. Lymph nodes: There is no cervical or supraclavicular lymphadenopathy. Heart: Regular rate and rhythm, without murmurs, rubs or gallops. Lungs: Clear to auscultation bilaterally. Abdomen: Soft, nontender, nondistended. There are bowel sounds present. Skin: There is no rash or splinter hemorrhages. Musculoskeletal: There is no spine tenderness to palpation or joint synovitis. DIAGNOSTIC STUDIES/LAB DATA: White blood cell count 10, hemoglobin 11, platelets 248,000. Creatinine is 0.6. C-reactive protein was 108 on the 8th. Please see the impressions and recommendations outlined above, which I discussed with Dr. Jade. Thank you for asking me to see Ms. Cummings in consultation. [id number]/[facility] #: [id number] HEALTH SYSTEMThanh
[2018-03-16] MEDS: QUEtiapine TAB* 25 MG PO SCH (20:57)
[2018-03-16] MEDS: ALPRAZolam TAB* 0.5 MG PO PRN (21:32)
[2018-03-17] MEDS: Heparin VIAL(*) 5000 UNITS/ML VIAL (FIVE THOUSAND) SUBCUT SCH ×3 (05:21→22:24)
[2018-03-17] MEDS: Nicotine Patch Removal NOTE FOLLOW UP SCH (05:37)
[2018-03-17] MEDS: Potassium & Sodium Phos 250MG* = 1 PACKET PO SCH ×3 (08:37→22:24)
[2018-03-17] MEDS: Insulin LISPRO* 1 UNITS UNIT SUBCUT SCH ×4 (08:37→22:25)
[2018-03-17] MEDS: amLODIPine TAB* 5 MG PO SCH (08:38)
[2018-03-17] MEDS: Isosorbide Mononitrate ER TAB* 60 MG PO SCH (08:39)
[2018-03-17] MEDS: Spironolactone TAB* 25 MG PO SCH (08:39)
[2018-03-17] MEDS: FLUoxetine CAP* 20 MG PO SCH (08:40)
[2018-03-17] MEDS: predniSONE TAB* 20 MG PO SCH (08:40)
[2018-03-17] MEDS: Famotidine TAB* 20 MG PO SCH (08:41)
[2018-03-17] MEDS: Nicotine PATCH 14 MG/24 HR* PATCH TRANSDERM SCH (08:41)
[2018-03-17] MEDS: Gabapentin CAP(*) 300 MG PO SCH ×3 (08:41→22:22)
[2018-03-17] MEDS: Aspirin EC TAB* 81 MG TAB.EC PO SCH (08:41)
--- NOTE | 2018-03-17 11:34 | PN ---
<Mary Agustin - Last Filed: 03/17/18 11:58> Infectious Disease Note Date of Evaluation: 03/17/18 SOAP: Subjective: Date of Service: 03/17/18 Interval history: Today continues to have fatigue and shortness of breath. She denies fever, chills, night sweats. Objective: Vital Signs Temp Pulse Resp BP Pulse Ox 36.3 C 59 18 123/60 100 03/17/18 07:39 03/17/18 07:39 03/17/18 08:41 03/17/18 07:39 03/17/18 08:00 Physical Exam: General: comfortable appearing, sitting up in chair with 2L NC HEENT: clear oropharynx, oral dentition notable for dentures, peerl, clear sclera Neck: no cervical adenopathy, no jvd Heart: s1s2 audible, no g/m/r Lungs: ctab no w/r/r Abdomen: soft, normoactive b/s, Extremities: warm, no edema Neuro: a&o x3, no focal neurological deficits Active Medications: Acetaminophen (Tylenol Adult Liq*) 650 mg PO Q4H PRN PRN Reason: FEVER/PAIN Last Admin: 03/17/18 04:29 Dose: 650 mg Al Hydrox/Mg Hydrox/Simethicone (Maalox Plus*) 30 ml PO Q6H PRN PRN Reason: INDIGESTION Albuterol (Ventolin 2.5 Mg/3 Ml Neb.Flakita*) 2.5 mg INH Q2H PRN PRN Reason: SOB/WHEEZING Last Admin: 03/14/18 09:10 Dose: 2.5 mg Albuterol/Ipratropium (Duoneb (Albuterol 2.5 Mg/Ipratropium 0.5 Mg)) 1 neb INH Q4H PRN PRN Reason: SOB/WHEEZING Last Admin: 03/14/18 07:20 Dose: 1 neb Alprazolam (Xanax Tab*) 0.5 mg PO DAILY PRN PRN Reason: ANXIETY Last Admin: 03/16/18 21:32 Dose: 0.5 mg Amlodipine Besylate (Norvasc Tab*) 10 mg PO DAILY [facility] Last Admin: 03/17/18 08:38 Dose: 10 mg Aspirin (Aspirin Ec Tab*) 81 mg PO DAILY [facility] Last Admin: 03/17/18 08:41 Dose: 81 mg Device (Nicotine Mouth Piece*) 1 each INH .USE WITH NICOTROL PRN PRN Reason: CRAVING Dextrose (D50w Syringe 50 Ml*) 12.5 gm IV PUSH .FOR FS < 60 - SS PRN PRN Reason: FS < 60 Docusate Sodium (Colace Cap*) 100 mg PO BID PRN PRN Reason: CONSTIPATION Famotidine (Pepcid Tab*) 20 mg PO DAILY [facility] Last Admin: 03/17/18 08:41 Dose: 20 mg Fluoxetine HCl (Prozac Cap*) 60 mg PO QAM [facility] Last Admin: 03/17/18 08:40 Dose: 60 mg Gabapentin (Neurontin Cap(*)) 300 mg PO TID [facility] Last Admin: 03/17/18 08:41 Dose: 300 mg Heparin Sodium (Porcine) (Heparin Vial(*)) 5,000 units SUBCUT Q8HR [facility] Last Admin: 03/17/18 05:21 Dose: 5,000 units Heparin Sodium (Porcine) (Heparin Flush Picc/Ml/Cvc(*)) 1 ml FLUSH 0600,1800 [facility] PRN Reason: Protocol Last Admin: 03/17/18 05:21 Dose: 1 ml Ceftriaxone Sodium 1 gm/ (Sodium Chloride) 50 mls @ 200 mls/hr IVPB Q24H [facility] Stop: 03/22/18 13:59 Last Admin: 03/16/18 14:36 Dose: 200 mls/hr Insulin Human Lispro (Humalog*) 0 units SUBCUT ACHS [facility] PRN Reason: Protocol Last Admin: 03/17/18 08:37 Dose: 3 units Isosorbide Mononitrate (Imdur Er Tab*) 60 mg PO DAILY [facility] Last Admin: 03/17/18 08:39 Dose: 60 mg Nicotine (Nicotine Patch 14 Mg/24 Hr*) 1 patch TRANSDERM DAILY [facility] Last Admin: 03/17/18 08:41 Dose: 1 patch Ondansetron HCl (Zofran Inj*) 4 mg IV Q4H PRN PRN Reason: NAUSEA/VOMITING Last Admin: 03/09/18 11:57 Dose: 4 mg Pharmacy Profile Note (Nicotine Patch Removal Note*) 1 note FOLLOW UP 0600 [facility] Last Admin: 03/17/18 05:37 Dose: 1 note Potassium Phos/Sodium Phos (Neutra Phos 250 Mg Chay*) 250 mg PO TID [facility] Last Admin: 03/17/18 08:37 Dose: 250 mg Prednisone (Deltasone Tab*) 40 mg PO DAILY [facility] Last Admin: 03/17/18 08:40 Dose: 40 mg Prochlorperazine Edisylate (Compazine Inj*) 5 mg IV Q6H PRN PRN Reason: NAUSEA/VOMITING Last Admin: 03/16/18 12:24 Dose: 5 mg Quetiapine Fumarate (Seroquel Tab*) 50 mg PO BEDTIME [facility] Last Admin: 03/16/18 20:57 Dose: 50 mg Senna (Senokot Tab*) 1 tab PO BID PRN PRN Reason: CONSTIPATION Last Admin: 03/10/18 21:01 Dose: 1 tab Spironolactone (Aldactone Tab*) 25 mg PO DAILY [facility] Last Admin: 03/17/18 08:39 Dose: 25 mg Laboratory Results - last 24 hr 03/15/18 03/16/18 03/16/18 23:57 16:56 20:03 POC Glucose (mg/dL) 186 H 162 H HIV 1&2 Antibody Nonreactive 03/17/18 07:32 POC Glucose (mg/dL) 168 H HIV 1&2 Antibody Laboratory Tests 03/08/18 03/08/18 03/08/18 18:33 18:34 18:34 WBC 13.7 H RBC 4.59 Hgb 13.6 Hct 39 MCV 86 MCH 30 MCHC 34 RDW 15 Plt Count 246 MPV 7.8 Neut % (Auto) Not Reportable Lymph % (Auto) Not Reportable [place] % (Auto) Not Reportable Eos % (Auto) Not Reportable Baso % (Auto) Not Reportable Absolute Neuts (auto) Not Reportable Absolute Lymphs (auto) Not Reportable Absolute Monos (auto) Not Reportable Absolute Eos (auto) Not Reportable Absolute Basos (auto) Not Reportable Absolute Nucleated RBC Not Reportable Immature Gran % 6 Neutrophils % 79 Band Neutrophils % 6 Lymphocytes % 8 L Monocytes % 7 Eosinophils % 0 Basophils % 0 Nucleated RBC % Not Reportable Abs Neuts (Manual) 10.8 H Abs Lymphs (Manual) 1.1 Abs Monocytes (Manual) 1.0 H Absolute Eos (Manual) 0 Abs Basophils (Manual) 0 Large Platelets Present Normal RBC Morphology Normal INR (Anticoag Therapy) 1.18 H D-Dimer, Quantitative 911 H ABG pH ABG pCO2 ABG pO2 ABG HCO3 ABG O2 Saturation ABG Base Excess VBG pH VBG pCO2 VBG pO2 VBG HCO3 VBG O2 Saturation VBG Base Excess Sodium 136 L Potassium 3.1 L Chloride 102 Carbon Dioxide 24 Anion Gap 10 BUN 12 Creatinine 0.80 Est GFR ( Amer) 93.8 Est GFR (Non-Af Amer) 72.9 BUN/Creatinine Ratio 15.0 Glucose 92 POC Glucose (mg/dL) Lactic Acid Calcium 8.4 L Phosphorus Magnesium 1.0 L Total Bilirubin 1.30 H AST 12 L ALT 9 Alkaline Phosphatase 85 Total Creatine Kinase 86 Troponin I 0.00 C-Reactive Protein 108.11 H B-Natriuretic Peptide Total Protein 6.6 Albumin 3.3 Globulin 3.3 Albumin/Globulin Ratio 1.0 Urine Color Urine Appearance Urine pH Ur Specific [place] Urine Protein Urine Ketones Urine Blood Urine Nitrate Urine Bilirubin Urine Urobilinogen Ur Leukocyte Esterase Urine WBC (Auto) Urine RBC (Auto) Ur Squamous Epith Cells Urine Bacteria Urine Glucose Urine Ascorbic Acid HIV 1&2 Antibody 03/08/18 03/08/18 03/08/18 18:34 18:34 18:52 WBC RBC Hgb Hct MCV MCH MCHC RDW Plt Count MPV Neut % (Auto) Lymph % (Auto) [place] % (Auto) Eos % (Auto) Baso % (Auto) Absolute Neuts (auto) Absolute Lymphs (auto) Absolute Monos (auto) Absolute Eos (auto) Absolute Basos (auto) Absolute Nucleated RBC Immature Gran % Neutrophils % Band Neutrophils % Lymphocytes % Monocytes % Eosinophils % Basophils % Nucleated RBC % Abs Neuts (Manual) Abs Lymphs (Manual) Abs Monocytes (Manual) Absolute Eos (Manual) Abs Basophils (Manual) Large Platelets Normal RBC Morphology INR (Anticoag Therapy) D-Dimer, Quantitative ABG pH ABG pCO2 ABG pO2 ABG HCO3 ABG O2 Saturation ABG Base Excess VBG pH VBG pCO2 VBG pO2 VBG HCO3 VBG O2 Saturation VBG Base Excess Sodium Potassium Chloride Carbon Dioxide Anion Gap BUN Creatinine Est GFR ( Amer) Est GFR (Non-Af Amer) BUN/Creatinine Ratio Glucose POC Glucose (mg/dL) Lactic Acid 1.7 1.9 Calcium Phosphorus Magnesium Total Bilirubin AST ALT Alkaline Phosphatase Total Creatine Kinase Troponin I C-Reactive Protein B-Natriuretic Peptide 173 H Total Protein Albumin Globulin Albumin/Globulin Ratio Urine Color Urine Appearance Urine pH Ur Specific [place] Urine Protein Urine Ketones Urine Blood Urine Nitrate Urine Bilirubin Urine Urobilinogen Ur Leukocyte Esterase Urine WBC (Auto) Urine RBC (Auto) Ur Squamous Epith Cells Urine Bacteria Urine Glucose Urine Ascorbic Acid HIV 1&2 Antibody 03/08/18 03/08/18 03/08/18 19:29 20:45 23:42 WBC RBC Hgb Hct MCV MCH MCHC RDW Plt Count MPV Neut % (Auto) Lymph % (Auto) [place] % (Auto) Eos % (Auto) Baso % (Auto) Absolute Neuts (auto) Absolute Lymphs (auto) Absolute Monos (auto) Absolute Eos (auto) Absolute Basos (auto) Absolute Nucleated RBC Immature Gran % Neutrophils % Band Neutrophils % Lymphocytes % Monocytes % Eosinophils % Basophils % Nucleated RBC % Abs Neuts (Manual) Abs Lymphs (Manual) Abs Monocytes (Manual) Absolute Eos (Manual) Abs Basophils (Manual) Large Platelets Normal RBC Morphology INR (Anticoag Therapy) D-Dimer, Quantitative ABG pH ABG pCO2 ABG pO2 ABG HCO3 ABG O2 Saturation ABG Base Excess VBG pH 7.37 VBG pCO2 47 VBG pO2 12 L VBG HCO3 23.6 L VBG O2 Saturation 18.5 L VBG Base Excess 1.2 Sodium Potassium Chloride Carbon Dioxide Anion Gap BUN Creatinine Est GFR ( Amer) Est GFR (Non-Af Amer) BUN/Creatinine Ratio Glucose POC Glucose (mg/dL) Lactic Acid Calcium Phosphorus Magnesium Total Bilirubin AST ALT Alkaline Phosphatase Total Creatine Kinase Troponin I 0.01 0.00 C-Reactive Protein B-Natriuretic Peptide Total Protein Albumin Globulin Albumin/Globulin Ratio Urine Color Urine Appearance Urine pH Ur Specific [place] Urine Protein Urine Ketones Urine Blood Urine Nitrate Urine Bilirubin Urine Urobilinogen Ur Leukocyte Esterase Urine WBC (Auto) Urine RBC (Auto) Ur Squamous Epith Cells Urine Bacteria Urine Glucose Urine Ascorbic Acid HIV 1&2 Antibody 03/08/18 03/09/18 03/09/18 23:48 05:10 05:10 WBC 17.4 H RBC 4.17 Hgb 12.0 Hct 36 MCV 87 MCH 29 MCHC 33 RDW 15 Plt Count 232 MPV 8.1 Neut % (Auto) Not Reportable Lymph % (Auto) Not Reportable [place] % (Auto) Not Reportable Eos % (Auto) Not Reportable Baso % (Auto) Not Reportable Absolute Neuts (auto) Not Reportable Absolute Lymphs (auto) Not Reportable Absolute Monos (auto) Not Reportable Absolute Eos (auto) Not Reportable Absolute Basos (auto) Not Reportable Absolute Nucleated RBC Not Reportable Immature Gran % Neutrophils % Band Neutrophils % Lymphocytes % Monocytes % Eosinophils % Basophils % Nucleated RBC % Not Reportable Abs Neuts (Manual) Abs Lymphs (Manual) Abs Monocytes (Manual) Absolute Eos (Manual) Abs Basophils (Manual) Large Platelets Normal RBC Morphology INR (Anticoag Therapy) D-Dimer, Quantitative ABG pH 7.38 ABG pCO2 39 ABG pO2 272 H ABG HCO3 23.5 ABG O2 Saturation 98.4 H ABG Base Excess -1.8 VBG pH VBG pCO2 VBG pO2 VBG HCO3 VBG O2 Saturation VBG Base Excess Sodium 137 L Potassium 4.0 Chloride 106 Carbon Dioxide 23 Anion Gap 8 BUN 14 Creatinine 0.75 Est GFR ( Amer) 101.0 Est GFR (Non-Af Amer) 78.6 BUN/Creatinine Ratio 18.7 Glucose 126 H POC Glucose (mg/dL) Lactic Acid Calcium 8.0 L Phosphorus Magnesium 1.9 Total Bilirubin AST ALT Alkaline Phosphatase Total Creatine Kinase Troponin I C-Reactive Protein B-Natriuretic Peptide Total Protein Albumin Globulin Albumin/Globulin Ratio Urine Color Urine Appearance Urine pH Ur Specific [place] Urine Protein Urine Ketones Urine Blood Urine Nitrate Urine Bilirubin Urine Urobilinogen Ur Leukocyte Esterase Urine WBC (Auto) Urine RBC (Auto) Ur Squamous Epith Cells Urine Bacteria Urine Glucose Urine Ascorbic Acid HIV 1&2 Antibody 03/09/18 03/09/18 03/10/18 07:34 16:32 00:37 WBC RBC Hgb Hct MCV MCH MCHC RDW Plt Count MPV Neut % (Auto) Lymph % (Auto) [place] % (Auto) Eos % (Auto) Baso % (Auto) Absolute Neuts (auto) Absolute Lymphs (auto) Absolute Monos (auto) Absolute Eos (auto) Absolute Basos (auto) Absolute Nucleated RBC Immature Gran % Neutrophils % Band Neutrophils % Lymphocytes % Monocytes % Eosinophils % Basophils % Nucleated RBC % Abs Neuts (Manual) Abs Lymphs (Manual) Abs Monocytes (Manual) Absolute Eos (Manual) Abs Basophils (Manual) Large Platelets Normal RBC Morphology INR (Anticoag Therapy) D-Dimer, Quantitative ABG pH ABG pCO2 ABG pO2 ABG HCO3 ABG O2 Saturation ABG Base Excess VBG pH VBG pCO2 VBG pO2 VBG HCO3 VBG O2 Saturation VBG Base Excess Sodium Potassium Chloride Carbon Dioxide Anion Gap BUN Creatinine Est GFR ( Amer) Est GFR (Non-Af Amer) BUN/Creatinine Ratio Glucose POC Glucose (mg/dL) 149 H 204 H 179 H Lactic Acid Calcium Phosphorus Magnesium Total Bilirubin AST ALT Alkaline Phosphatase Total Creatine Kinase Troponin I C-Reactive Protein B-Natriuretic Peptide Total Protein Albumin Globulin Albumin/Globulin Ratio Urine Color Urine Appearance Urine pH Ur Specific [place] Urine Protein Urine Ketones Urine Blood Urine Nitrate Urine Bilirubin Urine Urobilinogen Ur Leukocyte Esterase Urine WBC (Auto) Urine RBC (Auto) Ur Squamous Epith Cells Urine Bacteria Urine Glucose Urine Ascorbic Acid HIV 1&2 Antibody 03/10/18 03/10/18 03/10/18 05:44 05:44 05:45 WBC 18.9 H RBC 3.73 L Hgb 11.0 L Hct 33 L MCV 88 MCH 30 MCHC 34 RDW 15 Plt Count 235 MPV 8.1 Neut % (Auto) 92.7 H Lymph % (Auto) 3.6 L [place] % (Auto) 3.5 Eos % (Auto) 0 Baso % (Auto) 0.2 Absolute Neuts (auto) 17.5 H Absolute Lymphs (auto) 0.7 L Absolute Monos (auto) 0.7 Absolute Eos (auto) 0 Absolute Basos (auto) 0 Absolute Nucleated RBC 0 Immature Gran % Neutrophils % Band Neutrophils % Lymphocytes % Monocytes % Eosinophils % Basophils % Nucleated RBC % 0 Abs Neuts (Manual) Abs Lymphs (Manual) Abs Monocytes (Manual) Absolute Eos (Manual) Abs Basophils (Manual) Large Platelets Normal RBC Morphology INR (Anticoag Therapy) D-Dimer, Quantitative ABG pH ABG pCO2 ABG pO2 ABG HCO3 ABG O2 Saturation ABG Base Excess VBG pH VBG pCO2 VBG pO2 VBG HCO3 VBG O2 Saturation VBG Base Excess Sodium 135 L Potassium 4.3 Chloride 106 Carbon Dioxide 24 Anion Gap 5 BUN 27 H Creatinine 1.02 H Est GFR ( Amer) 70.9 Est GFR (Non-Af Amer) 55.1 BUN/Creatinine Ratio 26.5 H Glucose 189 H POC Glucose (mg/dL) 203 H Lactic Acid Calcium 8.1 L Phosphorus 2.8 Magnesium 2.1 Total Bilirubin AST ALT Alkaline Phosphatase Total Creatine Kinase Troponin I C-Reactive Protein B-Natriuretic Peptide Total Protein Albumin Globulin Albumin/Globulin Ratio Urine Color Urine Appearance Urine pH Ur Specific [place] Urine Protein Urine Ketones Urine Blood Urine Nitrate Urine Bilirubin Urine Urobilinogen Ur Leukocyte Esterase Urine WBC (Auto) Urine RBC (Auto) Ur Squamous Epith Cells Urine Bacteria Urine Glucose Urine Ascorbic Acid HIV 1&2 Antibody 03/10/18 03/10/18 03/10/18 11:49 17:59 23:23 WBC RBC Hgb Hct MCV MCH MCHC RDW Plt Count MPV Neut % (Auto) Lymph % (Auto) [place] % (Auto) Eos % (Auto) Baso % (Auto) Absolute Neuts (auto) Absolute Lymphs (auto) Absolute Monos (auto) Absolute Eos (auto) Absolute Basos (auto) Absolute Nucleated RBC Immature Gran % Neutrophils % Band Neutrophils % Lymphocytes % Monocytes % Eosinophils % Basophils % Nucleated RBC % Abs Neuts (Manual) Abs Lymphs (Manual) Abs Monocytes (Manual) Absolute Eos (Manual) Abs Basophils (Manual) Large Platelets Normal RBC Morphology INR (Anticoag Therapy) D-Dimer, Quantitative ABG pH ABG pCO2 ABG pO2 ABG HCO3 ABG O2 Saturation ABG Base Excess VBG pH VBG pCO2 VBG pO2 VBG HCO3 VBG O2 Saturation VBG Base Excess Sodium Potassium Chloride Carbon Dioxide Anion Gap BUN Creatinine Est GFR ( Amer) Est GFR (Non-Af Amer) BUN/Creatinine Ratio Glucose POC Glucose (mg/dL) 186 H 175 H 204 H Lactic Acid Calcium Phosphorus Magnesium Total Bilirubin AST ALT Alkaline Phosphatase Total Creatine Kinase Troponin I C-Reactive Protein B-Natriuretic Peptide Total Protein Albumin Globulin Albumin/Globulin Ratio Urine Color Urine Appearance Urine pH Ur Specific [place] Urine Protein Urine Ketones Urine Blood Urine Nitrate Urine Bilirubin Urine Urobilinogen Ur Leukocyte Esterase Urine WBC (Auto) Urine RBC (Auto) Ur Squamous Epith Cells Urine Bacteria Urine Glucose Urine Ascorbic Acid HIV 1&2 Antibody 03/11/18 03/11/18 03/11/18 05:10 05:10 12:02 WBC 11.4 H RBC 3.86 L Hgb 11.3 L Hct 34 L MCV 88 MCH 29 MCHC 33 RDW 15 Plt Count 230 MPV 8.6 Neut % (Auto) Lymph % (Auto) [place] % (Auto) Eos % (Auto) Baso % (Auto) Absolute Neuts (auto) Absolute Lymphs (auto) Absolute Monos (auto) Absolute Eos (auto) Absolute Basos (auto) Absolute Nucleated RBC Immature Gran % Neutrophils % Band Neutrophils % Lymphocytes % Monocytes % Eosinophils % Basophils % Nucleated RBC % Abs Neuts (Manual) Abs Lymphs (Manual) Abs Monocytes (Manual) Absolute Eos (Manual) Abs Basophils (Manual) Large Platelets Normal RBC Morphology INR (Anticoag Therapy) D-Dimer, Quantitative ABG pH ABG pCO2 ABG pO2 ABG HCO3 ABG O2 Saturation ABG Base Excess VBG pH VBG pCO2 VBG pO2 VBG HCO3 VBG O2 Saturation VBG Base Excess Sodium 135 L Potassium 4.5 Chloride 104 Carbon Dioxide 27 Anion Gap 4 BUN 26 H Creatinine 0.80 Est GFR ( Amer) 93.8 Est GFR (Non-Af Amer) 72.9 BUN/Creatinine Ratio 32.5 H Glucose 227 H POC Glucose (mg/dL) 208 H Lactic Acid Calcium 8.8 Phosphorus 2.1 L Magnesium 2.2 Total Bilirubin AST ALT Alkaline Phosphatase Total Creatine Kinase Troponin I C-Reactive Protein B-Natriuretic Peptide Total Protein Albumin Globulin Albumin/Globulin Ratio Urine Color Urine Appearance Urine pH Ur Specific [place] Urine Protein Urine Ketones Urine Blood Urine Nitrate Urine Bilirubin Urine Urobilinogen Ur Leukocyte Esterase Urine WBC (Auto) Urine RBC (Auto) Ur Squamous Epith Cells Urine Bacteria Urine Glucose Urine Ascorbic Acid HIV 1&2 Antibody 03/11/18 03/12/18 03/12/18 18:00 00:17 05:33 WBC RBC Hgb Hct MCV MCH MCHC RDW Plt Count MPV Neut % (Auto) Lymph % (Auto) [place] % (Auto) Eos % (Auto) Baso % (Auto) Absolute Neuts (auto) Absolute Lymphs (auto) Absolute Monos (auto) Absolute Eos (auto) Absolute Basos (auto) Absolute Nucleated RBC Immature Gran % Neutrophils % Band Neutrophils % Lymphocytes % Monocytes % Eosinophils % Basophils % Nucleated RBC % Abs Neuts (Manual) Abs Lymphs (Manual) Abs Monocytes (Manual) Absolute Eos (Manual) Abs Basophils (Manual) Large Platelets Normal RBC Morphology INR (Anticoag Therapy) D-Dimer, Quantitative ABG pH ABG pCO2 ABG pO2 ABG HCO3 ABG O2 Saturation ABG Base Excess VBG pH VBG pCO2 VBG pO2 VBG HCO3 VBG O2 Saturation VBG Base Excess Sodium 134 L Potassium 4.1 Chloride 101 Carbon Dioxide 25 Anion Gap 8 BUN 22 Creatinine 0.56 Est GFR ( Amer) 141.5 Est GFR (Non-Af Amer) 110.1 BUN/Creatinine Ratio 39.3 H Glucose 217 H POC Glucose (mg/dL) 204 H 183 H Lactic Acid Calcium 8.2 L Phosphorus 2.2 L Magnesium 1.7 L Total Bilirubin AST ALT Alkaline Phosphatase Total Creatine Kinase Troponin I C-Reactive Protein B-Natriuretic Peptide Total Protein Albumin Globulin Albumin/Globulin Ratio Urine Color Urine Appearance Urine pH Ur Specific [place] Urine Protein Urine Ketones Urine Blood Urine Nitrate Urine Bilirubin Urine Urobilinogen Ur Leukocyte Esterase Urine WBC (Auto) Urine RBC (Auto) Ur Squamous Epith Cells Urine Bacteria Urine Glucose Urine Ascorbic Acid HIV 1&2 Antibody 03/12/18 03/12/18 03/12/18 06:13 12:17 17:37 WBC RBC Hgb Hct MCV MCH MCHC RDW Plt Count MPV Neut % (Auto) Lymph % (Auto) [place] % (Auto) Eos % (Auto) Baso % (Auto) Absolute Neuts (auto) Absolute Lymphs (auto) Absolute Monos (auto) Absolute Eos (auto) Absolute Basos (auto) Absolute Nucleated RBC Immature Gran % Neutrophils % Band Neutrophils % Lymphocytes % Monocytes % Eosinophils % Basophils % Nucleated RBC % Abs Neuts (Manual) Abs Lymphs (Manual) Abs Monocytes (Manual) Absolute Eos (Manual) Abs Basophils (Manual) Large Platelets Normal RBC Morphology INR (Anticoag Therapy) D-Dimer, Quantitative ABG pH ABG pCO2 ABG pO2 ABG HCO3 ABG O2 Saturation ABG Base Excess VBG pH VBG pCO2 VBG pO2 VBG HCO3 VBG O2 Saturation VBG Base Excess Sodium Potassium Chloride Carbon Dioxide Anion Gap BUN Creatinine Est GFR ( Amer) Est GFR (Non-Af Amer) BUN/Creatinine Ratio Glucose POC Glucose (mg/dL) 220 H 239 H 175 H Lactic Acid Calcium Phosphorus Magnesium Total Bilirubin AST ALT Alkaline Phosphatase Total Creatine Kinase Troponin I C-Reactive Protein B-Natriuretic Peptide Total Protein Albumin Globulin Albumin/Globulin Ratio Urine Color Urine Appearance Urine pH Ur Specific [place] Urine Protein Urine Ketones Urine Blood Urine Nitrate Urine Bilirubin Urine Urobilinogen Ur Leukocyte Esterase Urine WBC (Auto) Urine RBC (Auto) Ur Squamous Epith Cells Urine Bacteria Urine Glucose Urine Ascorbic Acid HIV 1&2 Antibody 03/12/18 03/13/18 03/13/18 23:52 05:56 08:30 WBC RBC Hgb Hct MCV MCH MCHC RDW Plt Count MPV Neut % (Auto) Lymph % (Auto) [place] % (Auto) Eos % (Auto) Baso % (Auto) Absolute Neuts (auto) Absolute Lymphs (auto) Absolute Monos (auto) Absolute Eos (auto) Absolute Basos (auto) Absolute Nucleated RBC Immature Gran % Neutrophils % Band Neutrophils % Lymphocytes % Monocytes % Eosinophils % Basophils % Nucleated RBC % Abs Neuts (Manual) Abs Lymphs (Manual) Abs Monocytes (Manual) Absolute Eos (Manual) Abs Basophils (Manual) Large Platelets Normal RBC Morphology INR (Anticoag Therapy) D-Dimer, Quantitative ABG pH ABG pCO2 ABG pO2 ABG HCO3 ABG O2 Saturation ABG Base Excess VBG pH VBG pCO2 VBG pO2 VBG HCO3 VBG O2 Saturation VBG Base Excess Sodium Potassium Chloride Carbon Dioxide Anion Gap BUN Creatinine Est GFR ( Amer) Est GFR (Non-Af Amer) BUN/Creatinine Ratio Glucose POC Glucose (mg/dL) 195 H 198 H Lactic Acid Calcium Phosphorus Magnesium Total Bilirubin AST ALT Alkaline Phosphatase Total Creatine Kinase Troponin I C-Reactive Protein B-Natriuretic Peptide Total Protein Albumin Globulin Albumin/Globulin Ratio Urine Color Yellow Urine Appearance Clear Urine pH 5.0 Ur Specific [place] 1.033 H Urine Protein 1+(30 mg/dl) A Urine Ketones Negative Urine Blood 2+ A Urine Nitrate Negative Urine Bilirubin Negative Urine Urobilinogen Negative Ur Leukocyte Esterase Negative Urine WBC (Auto) Trace(0-5/hpf) Urine RBC (Auto) 3+(>10/hpf) A Ur Squamous Epith Cells Present A Urine Bacteria Absent Urine Glucose Negative Urine Ascorbic Acid * A HIV 1&2 Antibody 03/13/18 03/13/18 03/13/18 12:17 14:45 14:45 WBC 12.6 H RBC 4.14 Hgb 12.1 Hct 36 MCV 86 MCH 29 MCHC 34 RDW 14 Plt Count 229 MPV 8.0 Neut % (Auto) Lymph % (Auto) [place] % (Auto) Eos % (Auto) Baso % (Auto) Absolute Neuts (auto) Absolute Lymphs (auto) Absolute Monos (auto) Absolute Eos (auto) Absolute Basos (auto) Absolute Nucleated RBC Immature Gran % Neutrophils % Band Neutrophils % Lymphocytes % Monocytes % Eosinophils % Basophils % Nucleated RBC % Abs Neuts (Manual) Abs Lymphs (Manual) Abs Monocytes (Manual) Absolute Eos (Manual) Abs Basophils (Manual) Large Platelets Normal RBC Morphology INR (Anticoag Therapy) D-Dimer, Quantitative ABG pH ABG pCO2 ABG pO2 ABG HCO3 ABG O2 Saturation ABG Base Excess VBG pH VBG pCO2 VBG pO2 VBG HCO3 VBG O2 Saturation VBG Base Excess Sodium 138 L Potassium 3.9 Chloride 97 L Carbon Dioxide 33 H Anion Gap 8 BUN 18 Creatinine 0.71 Est GFR ( Amer) 107.6 Est GFR (Non-Af Amer) 83.7 BUN/Creatinine Ratio 25.4 H Glucose 225 H POC Glucose (mg/dL) 236 H Lactic Acid Calcium 8.2 L Phosphorus Magnesium 1.6 L Total Bilirubin AST ALT Alkaline Phosphatase Total Creatine Kinase Troponin I C-Reactive Protein B-Natriuretic Peptide Total Protein Albumin Globulin Albumin/Globulin Ratio Urine Color Urine Appearance Urine pH Ur Specific [place] Urine Protein Urine Ketones Urine Blood Urine Nitrate Urine Bilirubin Urine Urobilinogen Ur Leukocyte Esterase Urine WBC (Auto) Urine RBC (Auto) Ur Squamous Epith Cells Urine Bacteria Urine Glucose Urine Ascorbic Acid HIV 1&2 Antibody 03/13/18 03/14/18 03/14/18 18:18 00:17 05:20 WBC RBC Hgb Hct MCV MCH MCHC RDW Plt Count MPV Neut % (Auto) Lymph % (Auto) [place] % (Auto) Eos % (Auto) Baso % (Auto) Absolute Neuts (auto) Absolute Lymphs (auto) Absolute Monos (auto) Absolute Eos (auto) Absolute Basos (auto) Absolute Nucleated RBC Immature Gran % Neutrophils % Band Neutrophils % Lymphocytes % Monocytes % Eosinophils % Basophils % Nucleated RBC % Abs Neuts (Manual) Abs Lymphs (Manual) Abs Monocytes (Manual) Absolute Eos (Manual) Abs Basophils (Manual) Large Platelets Normal RBC Morphology INR (Anticoag Therapy) D-Dimer, Quantitative ABG pH ABG pCO2 ABG pO2 ABG HCO3 ABG O2 Saturation ABG Base Excess VBG pH VBG pCO2 VBG pO2 VBG HCO3 VBG O2 Saturation VBG Base Excess Sodium 136 L Potassium 4.3 Chloride 100 L Carbon Dioxide 34 H Anion Gap 2 BUN 17 Creatinine 0.68 Est GFR ( Amer) 113.1 Est GFR (Non-Af Amer) 88.0 BUN/Creatinine Ratio 25.0 H Glucose 226 H POC Glucose (mg/dL) 188 H 162 H Lactic Acid Calcium 8.7 Phosphorus Magnesium Total Bilirubin AST ALT Alkaline Phosphatase Total Creatine Kinase Troponin I C-Reactive Protein B-Natriuretic Peptide Total Protein Albumin Globulin Albumin/Globulin Ratio Urine Color Urine Appearance Urine pH Ur Specific [place] Urine Protein Urine Ketones Urine Blood Urine Nitrate Urine Bilirubin Urine Urobilinogen Ur Leukocyte Esterase Urine WBC (Auto) Urine RBC (Auto) Ur Squamous Epith Cells Urine Bacteria Urine Glucose Urine Ascorbic Acid HIV 1&2 Antibody 03/14/18 03/14/18 03/14/18 05:20 11:46 18:03 WBC 13.8 H RBC 4.22 Hgb 12.3 Hct 36 MCV 86 MCH 29 MCHC 34 RDW 14 Plt Count 242 MPV 8.2 Neut % (Auto) Lymph % (Auto) [place] % (Auto) Eos % (Auto) Baso % (Auto) Absolute Neuts (auto) Absolute Lymphs (auto) Absolute Monos (auto) Absolute Eos (auto) Absolute Basos (auto) Absolute Nucleated RBC Immature Gran % Neutrophils % Band Neutrophils % Lymphocytes % Monocytes % Eosinophils % Basophils % Nucleated RBC % Abs Neuts (Manual) Abs Lymphs (Manual) Abs Monocytes (Manual) Absolute Eos (Manual) Abs Basophils (Manual) Large Platelets Normal RBC Morphology INR (Anticoag Therapy) D-Dimer, Quantitative ABG pH ABG pCO2 ABG pO2 ABG HCO3 ABG O2 Saturation ABG Base Excess VBG pH VBG pCO2 VBG pO2 VBG HCO3 VBG O2 Saturation VBG Base Excess Sodium Potassium Chloride Carbon Dioxide Anion Gap BUN Creatinine Est GFR ( Amer) Est GFR (Non-Af Amer) BUN/Creatinine Ratio Glucose POC Glucose (mg/dL) 195 H 191 H Lactic Acid Calcium Phosphorus Magnesium Total Bilirubin AST ALT Alkaline Phosphatase Total Creatine Kinase Troponin I C-Reactive Protein B-Natriuretic Peptide Total Protein Albumin Globulin Albumin/Globulin Ratio Urine Color Urine Appearance Urine pH Ur Specific [place] Urine Protein Urine Ketones Urine Blood Urine Nitrate Urine Bilirubin Urine Urobilinogen Ur Leukocyte Esterase Urine WBC (Auto) Urine RBC (Auto) Ur Squamous Epith Cells Urine Bacteria Urine Glucose Urine Ascorbic Acid HIV 1&2 Antibody 03/15/18 03/15/18 03/15/18 00:17 06:40 06:45 WBC RBC Hgb Hct MCV MCH MCHC RDW Plt Count MPV Neut % (Auto) Lymph % (Auto) [place] % (Auto) Eos % (Auto) Baso % (Auto) Absolute Neuts (auto) Absolute Lymphs (auto) Absolute Monos (auto) Absolute Eos (auto) Absolute Basos (auto) Absolute Nucleated RBC Immature Gran % Neutrophils % Band Neutrophils % Lymphocytes % Monocytes % Eosinophils % Basophils % Nucleated RBC % Abs Neuts (Manual) Abs Lymphs (Manual) Abs Monocytes (Manual) Absolute Eos (Manual) Abs Basophils (Manual) Large Platelets Normal RBC Morphology INR (Anticoag Therapy) D-Dimer, Quantitative ABG pH ABG pCO2 ABG pO2 ABG HCO3 ABG O2 Saturation ABG Base Excess VBG pH VBG pCO2 VBG pO2 VBG HCO3 VBG O2 Saturation VBG Base Excess Sodium 137 L Potassium 3.9 Chloride 100 L Carbon Dioxide 33 H Anion Gap 4 BUN 19 Creatinine 0.61 Est GFR ( Amer) 128.2 Est GFR (Non-Af Amer) 99.7 BUN/Creatinine Ratio 31.1 H Glucose 187 H POC Glucose (mg/dL) 184 H 188 H Lactic Acid Calcium 8.4 L Phosphorus Magnesium Total Bilirubin AST ALT Alkaline Phosphatase Total Creatine Kinase Troponin I C-Reactive Protein B-Natriuretic Peptide Total Protein Albumin Globulin Albumin/Globulin Ratio Urine Color Urine Appearance Urine pH Ur Specific [place] Urine Protein Urine Ketones Urine Blood Urine Nitrate Urine Bilirubin Urine Urobilinogen Ur Leukocyte Esterase Urine WBC (Auto) Urine RBC (Auto) Ur Squamous Epith Cells Urine Bacteria Urine Glucose Urine Ascorbic Acid HIV 1&2 Antibody 03/15/18 03/15/18 03/15/18 06:45 12:17 17:43 WBC 10.9 H RBC 4.12 Hgb 11.9 L Hct 36 MCV 87 MCH 29 MCHC 33 RDW 14 Plt Count 248 MPV 8.4 Neut % (Auto) Lymph % (Auto) [place] % (Auto) Eos % (Auto) Baso % (Auto) Absolute Neuts (auto) Absolute Lymphs (auto) Absolute Monos (auto) Absolute Eos (auto) Absolute Basos (auto) Absolute Nucleated RBC Immature Gran % Neutrophils % Band Neutrophils % Lymphocytes % Monocytes % Eosinophils % Basophils % Nucleated RBC % Abs Neuts (Manual) Abs Lymphs (Manual) Abs Monocytes (Manual) Absolute Eos (Manual) Abs Basophils (Manual) Large Platelets Normal RBC Morphology INR (Anticoag Therapy) D-Dimer, Quantitative ABG pH ABG pCO2 ABG pO2 ABG HCO3 ABG O2 Saturation ABG Base Excess VBG pH VBG pCO2 VBG pO2 VBG HCO3 VBG O2 Saturation VBG Base Excess Sodium Potassium Chloride Carbon Dioxide Anion Gap BUN Creatinine Est GFR ( Amer) Est GFR (Non-Af Amer) BUN/Creatinine Ratio Glucose POC Glucose (mg/dL) 196 H 211 H Lactic Acid Calcium Phosphorus Magnesium Total Bilirubin AST ALT Alkaline Phosphatase Total Creatine Kinase Troponin I C-Reactive Protein B-Natriuretic Peptide Total Protein Albumin Globulin Albumin/Globulin Ratio Urine Color Urine Appearance Urine pH Ur Specific [place] Urine Protein Urine Ketones Urine Blood Urine Nitrate Urine Bilirubin Urine Urobilinogen Ur Leukocyte Esterase Urine WBC (Auto) Urine RBC (Auto) Ur Squamous Epith Cells Urine Bacteria Urine Glucose Urine Ascorbic Acid HIV 1&2 Antibody 03/15/18 03/15/18 03/15/18 20:38 20:40 23:57 WBC RBC Hgb Hct MCV MCH MCHC RDW Plt Count MPV Neut % (Auto) Lymph % (Auto) [place] % (Auto) Eos % (Auto) Baso % (Auto) Absolute Neuts (auto) Absolute Lymphs (auto) Absolute Monos (auto) Absolute Eos (auto) Absolute Basos (auto) Absolute Nucleated RBC Immature Gran % Neutrophils % Band Neutrophils % Lymphocytes % Monocytes % Eosinophils % Basophils % Nucleated RBC % Abs Neuts (Manual) Abs Lymphs (Manual) Abs Monocytes (Manual) Absolute Eos (Manual) Abs Basophils (Manual) Large Platelets Normal RBC Morphology INR (Anticoag Therapy) D-Dimer, Quantitative ABG pH ABG pCO2 ABG pO2 ABG HCO3 ABG O2 Saturation ABG Base Excess VBG pH VBG pCO2 VBG pO2 VBG HCO3 VBG O2 Saturation VBG Base Excess Sodium Potassium Chloride Carbon Dioxide Anion Gap BUN Creatinine Est GFR ( Amer) Est GFR (Non-Af Amer) BUN/Creatinine Ratio Glucose POC Glucose (mg/dL) 168 H Lactic Acid Calcium Phosphorus Magnesium Total Bilirubin AST ALT Alkaline Phosphatase Total Creatine Kinase Troponin I 0.00 0.01 C-Reactive Protein B-Natriuretic Peptide Total Protein Albumin Globulin Albumin/Globulin Ratio Urine Color Urine Appearance Urine pH Ur Specific [place] Urine Protein Urine Ketones Urine Blood Urine Nitrate Urine Bilirubin Urine Urobilinogen Ur Leukocyte Esterase Urine WBC (Auto) Urine RBC (Auto) Ur Squamous Epith Cells Urine Bacteria Urine Glucose Urine Ascorbic Acid HIV 1&2 Antibody 03/15/18 03/16/18 03/16/18 23:57 07:46 11:20 WBC RBC Hgb Hct MCV MCH MCHC RDW Plt Count MPV Neut % (Auto) Lymph % (Auto) [place] % (Auto) Eos % (Auto) Baso % (Auto) Absolute Neuts (auto) Absolute Lymphs (auto) Absolute Monos (auto) Absolute Eos (auto) Absolute Basos (auto) Absolute Nucleated RBC Immature Gran % Neutrophils % Band Neutrophils % Lymphocytes % Monocytes % Eosinophils % Basophils % Nucleated RBC % Abs Neuts (Manual) Abs Lymphs (Manual) Abs Monocytes (Manual) Absolute Eos (Manual) Abs Basophils (Manual) Large Platelets Normal RBC Morphology INR (Anticoag Therapy) D-Dimer, Quantitative ABG pH ABG pCO2 ABG pO2 ABG HCO3 ABG O2 Saturation ABG Base Excess VBG pH VBG pCO2 VBG pO2 VBG HCO3 VBG O2 Saturation VBG Base Excess Sodium Potassium Chloride Carbon Dioxide Anion Gap BUN Creatinine Est GFR ( Amer) Est GFR (Non-Af Amer) BUN/Creatinine Ratio Glucose POC Glucose (mg/dL) 180 H 204 H Lactic Acid Calcium Phosphorus Magnesium Total Bilirubin AST ALT Alkaline Phosphatase Total Creatine Kinase Troponin I C-Reactive Protein B-Natriuretic Peptide Total Protein Albumin Globulin Albumin/Globulin Ratio Urine Color Urine Appearance Urine pH Ur Specific [place] Urine Protein Urine Ketones Urine Blood Urine Nitrate Urine Bilirubin Urine Urobilinogen Ur Leukocyte Esterase Urine WBC (Auto) Urine RBC (Auto) Ur Squamous Epith Cells Urine Bacteria Urine Glucose Urine Ascorbic Acid HIV 1&2 Antibody Nonreactive 03/16/18 03/16/18 03/17/18 16:56 20:03 07:32 WBC RBC Hgb Hct MCV MCH MCHC RDW Plt Count MPV Neut % (Auto) Lymph % (Auto) [place] % (Auto) Eos % (Auto) Baso % (Auto) Absolute Neuts (auto) Absolute Lymphs (auto) Absolute Monos (auto) Absolute Eos (auto) Absolute Basos (auto) Absolute Nucleated RBC Immature Gran % Neutrophils % Band Neutrophils % Lymphocytes % Monocytes % Eosinophils % Basophils % Nucleated RBC % Abs Neuts (Manual) Abs Lymphs (Manual) Abs Monocytes (Manual) Absolute Eos (Manual) Abs Basophils (Manual) Large Platelets Normal RBC Morphology INR (Anticoag Therapy) D-Dimer, Quantitative ABG pH ABG pCO2 ABG pO2 ABG HCO3 ABG O2 Saturation ABG Base Excess VBG pH VBG pCO2 VBG pO2 VBG HCO3 VBG O2 Saturation VBG Base Excess Sodium Potassium Chloride Carbon Dioxide Anion Gap BUN Creatinine Est GFR ( Amer) Est GFR (Non-Af Amer) BUN/Creatinine Ratio Glucose POC Glucose (mg/dL) 186 H 162 H 168 H Lactic Acid Calcium Phosphorus Magnesium Total Bilirubin AST ALT Alkaline Phosphatase Total Creatine Kinase Troponin I C-Reactive Protein B-Natriuretic Peptide Total Protein Albumin Globulin Albumin/Globulin Ratio Urine Color Urine Appearance Urine pH Ur Specific [place] Urine Protein Urine Ketones Urine Blood Urine Nitrate Urine Bilirubin Urine Urobilinogen Ur Leukocyte Esterase Urine WBC (Auto) Urine RBC (Auto) Ur Squamous Epith Cells Urine Bacteria Urine Glucose Urine Ascorbic Acid HIV 1&2 Antibody TTE: 03/16/18 No evidence of vegetations Assessment: 62 yo woman with significant history of COPD, Lupus, stroke presenting with shortness of breath found with RLL infiltrate and Haemophilus influenza bactermia likely pulmonary origin. TTE completed without evidence of vegetation and low clinical suspicion for endocarditis. Bacteremia likely from RLL aspiration pneumonia. Plan: Haemophilius Influenza Bactermia likely 2/2 RLL aspiration PNA -on ceftriaxone IV, may transition to PO regimen -continue with aspiration percautions Discussed with attending Dr. Henry Guevara Pending co-sign and addendum Infectious Disease Consult Mary Agustin MD, PGY2 [facility] Resident <Ismael CALDERON,James Ramírez - Last Filed: 03/17/18 16:18> Infectious Disease Note SOAP: Seen, examined, discussed with Dr Agustin, I agree with her above note. In addition; BECCA to r/o endocarditis, if negative keflex 500 mg po tid for 10 more days with fu CXR [address] Jade
--- NOTE | 2018-03-17 13:19 | PN ---
Subjective Date of Service: 03/17/18 Interval History: Pt feels better. Participated with PT today. no new complaints Objective Active Medications: Acetaminophen (Tylenol Adult Liq*) 650 mg PO Q4H PRN PRN Reason: FEVER/PAIN Last Admin: 03/17/18 04:29 Dose: 650 mg Al Hydrox/Mg Hydrox/Simethicone (Maalox Plus*) 30 ml PO Q6H PRN PRN Reason: INDIGESTION Albuterol (Ventolin 2.5 Mg/3 Ml Neb.Flakita*) 2.5 mg INH Q2H PRN PRN Reason: SOB/WHEEZING Last Admin: 03/14/18 09:10 Dose: 2.5 mg Albuterol/Ipratropium (Duoneb (Albuterol 2.5 Mg/Ipratropium 0.5 Mg)) 1 neb INH Q4H PRN PRN Reason: SOB/WHEEZING Last Admin: 03/14/18 07:20 Dose: 1 neb Alprazolam (Xanax Tab*) 0.5 mg PO DAILY PRN PRN Reason: ANXIETY Last Admin: 03/16/18 21:32 Dose: 0.5 mg Amlodipine Besylate (Norvasc Tab*) 10 mg PO DAILY [facility] Last Admin: 03/17/18 08:38 Dose: 10 mg Aspirin (Aspirin Ec Tab*) 81 mg PO DAILY [facility] Last Admin: 03/17/18 08:41 Dose: 81 mg Device (Nicotine Mouth Piece*) 1 each INH .USE WITH NICOTROL PRN PRN Reason: CRAVING Dextrose (D50w Syringe 50 Ml*) 12.5 gm IV PUSH .FOR FS < 60 - SS PRN PRN Reason: FS < 60 Docusate Sodium (Colace Cap*) 100 mg PO BID PRN PRN Reason: CONSTIPATION Famotidine (Pepcid Tab*) 20 mg PO DAILY [facility] Last Admin: 03/17/18 08:41 Dose: 20 mg Fluoxetine HCl (Prozac Cap*) 60 mg PO QAM [facility] Last Admin: 03/17/18 08:40 Dose: 60 mg Gabapentin (Neurontin Cap(*)) 300 mg PO TID [facility] Last Admin: 03/17/18 08:41 Dose: 300 mg Heparin Sodium (Porcine) (Heparin Vial(*)) 5,000 units SUBCUT Q8HR [facility] Last Admin: 03/17/18 05:21 Dose: 5,000 units Heparin Sodium (Porcine) (Heparin Flush Picc/Ml/Cvc(*)) 1 ml FLUSH 0600,1800 [facility] PRN Reason: Protocol Last Admin: 03/17/18 05:21 Dose: 1 ml Ceftriaxone Sodium 1 gm/ (Sodium Chloride) 50 mls @ 200 mls/hr IVPB Q24H [facility] Stop: 03/22/18 13:59 Last Admin: 03/16/18 14:36 Dose: 200 mls/hr Insulin Human Lispro (Humalog*) 0 units SUBCUT ACHS JONATHAN PRN Reason: Protocol Last Admin: 03/17/18 13:09 Dose: 6 units Isosorbide Mononitrate (Imdur Er Tab*) 60 mg PO DAILY [facility] Last Admin: 03/17/18 08:39 Dose: 60 mg Nicotine (Nicotine Patch 14 Mg/24 Hr*) 1 patch TRANSDERM DAILY [facility] Last Admin: 03/17/18 08:41 Dose: 1 patch Ondansetron HCl (Zofran Inj*) 4 mg IV Q4H PRN PRN Reason: NAUSEA/VOMITING Last Admin: 03/09/18 11:57 Dose: 4 mg Pharmacy Profile Note (Nicotine Patch Removal Note*) 1 note FOLLOW UP 0600 [facility] Last Admin: 03/17/18 05:37 Dose: 1 note Potassium Phos/Sodium Phos (Neutra Phos 250 Mg Chay*) 250 mg PO TID [facility] Last Admin: 03/17/18 08:37 Dose: 250 mg Prednisone (Deltasone Tab*) 40 mg PO DAILY [facility] Last Admin: 03/17/18 08:40 Dose: 40 mg Prochlorperazine Edisylate (Compazine Inj*) 5 mg IV Q6H PRN PRN Reason: NAUSEA/VOMITING Last Admin: 03/16/18 12:24 Dose: 5 mg Quetiapine Fumarate (Seroquel Tab*) 50 mg PO BEDTIME [facility] Last Admin: 03/16/18 20:57 Dose: 50 mg Senna (Senokot Tab*) 1 tab PO BID PRN PRN Reason: CONSTIPATION Last Admin: 03/10/18 21:01 Dose: 1 tab Spironolactone (Aldactone Tab*) 25 mg PO DAILY [facility] Last Admin: 03/17/18 08:39 Dose: 25 mg Vital Signs - 8 hr 03/17/18 03/17/18 03/17/18 07:39 08:00 08:41 Temperature 97.4 F Pulse Rate 59 Respiratory 20 18 18 Rate Blood Pressure 123/60 (mmHg) O2 Sat by Pulse 100 100 Oximetry Oxygen Devices in Use Now: Nasal Cannula, CPAP Appearance: 62 yo f in nAD, aAOx3 Eyes: No Scleral Icterus, PERRLA Ears/Nose/Mouth/Throat: NL Teeth, Lips, Gums, Mucous Membranes Moist Neck: NL Appearance and Movements; NL JVP, Trachea Midline Respiratory: Symmetrical Chest Expansion and Respiratory Effort, - - decreased breath sounds b/l , crackles RML Cardiovascular: NL Sounds; No Murmurs; No JVD Abdominal: NL Sounds; No Tenderness; No Distention Lymphatic: No Cervical Adenopathy Extremities: No Edema, No Clubbing, Cyanosis Skin: No Rash or Ulcers, No Nodules or Sclerosis Neurological: Alert and Oriented x 3, - - minimally decreased hangrip on R Result Diagrams: 03/15/18 06:45 03/15/18 06:45 Additional Lab and Data: Lab Results 03/08/18 03/08/18 03/08/18 Range/Units 18:33 18:34 18:34 WBC 13.7 H (3.5-10.8) 10^3/ul RBC 4.59 (4.0-5.4) 10^6/ul Hgb 13.6 (12.0-16.0) g/dl Hct 39 (35-47) % MCV 86 (80-97) fL MCH 30 (27-31) pg MCHC 34 (31-36) g/dl RDW 15 (10.5-15) % Plt Count 246 (150-450) 10^3/ul MPV 7.8 (7.4-10.4) um3 Neut % (Auto) Not Reportable Lymph % (Auto) Not Reportable [place] % (Auto) Not Reportable Eos % (Auto) Not Reportable Baso % (Auto) Not Reportable Absolute Neuts (auto) Not Reportable Absolute Lymphs (auto) Not Reportable Absolute Monos (auto) Not Reportable Absolute Eos (auto) Not Reportable Absolute Basos (auto) Not Reportable Absolute Nucleated RBC Not Reportable Immature Gran % 6 (0-9) % Neutrophils % 79 (38-83) % Band Neutrophils % 6 (0-8) % Lymphocytes % 8 L (25-47) % Monocytes % 7 (0-7) % Eosinophils % 0 (0-6) % Basophils % 0 (0-2) % Nucleated RBC % Not Reportable Abs Neuts (Manual) 10.8 H (1.5-7.7) 10^3/ul Abs Lymphs (Manual) 1.1 (1.0-4.8) 10^3/ul Abs Monocytes (Manual) 1.0 H (0-0.8) 10^3/ul Absolute Eos (Manual) 0 (0-0.6) 10^3/ul Abs Basophils (Manual) 0 (0-0.2) 10^3/ul Large Platelets Present Normal RBC Morphology Normal (Normal) INR (Anticoag Therapy) 1.18 H (0.77-1.02) D-Dimer, Quantitative 911 H (Less Than 230) ng/mL VBG pH (7.33-7.43) VBG pCO2 (41-51) mmHg VBG pO2 (35-45) mmHg VBG HCO3 (24-28) mmol/L VBG O2 Saturation (70-80) % VBG Base Excess (0-4) Sodium 136 L (139-145) mmol/L Potassium 3.1 L (3.5-5.0) mmol/L Chloride 102 (101-111) mmol/L Carbon Dioxide 24 (22-32) mmol/L Anion Gap 10 (2-11) mmol/L BUN 12 (6-24) mg/dL Creatinine 0.80 (0.51-0.95) mg/dL Est GFR ( Amer) 93.8 (>60) Est GFR (Non-Af Amer) 72.9 (>60) BUN/Creatinine Ratio 15.0 (8-20) Glucose 92 (70-100) mg/dL Lactic Acid (0.5-2.0) mmol/L Calcium 8.4 L (8.6-10.3) mg/dL Magnesium 1.0 L (1.9-2.7) mg/dL Total Bilirubin 1.30 H (0.2-1.0) mg/dL AST 12 L (13-39) U/L ALT 9 (7-52) U/L Alkaline Phosphatase 85 (34-104) U/L Total Creatine Kinase 86 (10-223) U/L Troponin I 0.00 (<0.04) ng/mL C-Reactive Protein 108.11 H (< 5.00) mg/L B-Natriuretic Peptide ( - 100) pg/mL Total Protein 6.6 (6.4-8.9) g/dL Albumin 3.3 (3.2-5.2) g/dL Globulin 3.3 (2-4) g/dL Albumin/Globulin Ratio 1.0 (1-3) 03/08/18 03/08/18 03/08/18 Range/Units 18:34 18:34 18:52 WBC (3.5-10.8) 10^3/ul RBC (4.0-5.4) 10^6/ul Hgb (12.0-16.0) g/dl Hct (35-47) % MCV (80-97) fL MCH (27-31) pg MCHC (31-36) g/dl RDW (10.5-15) % Plt Count (150-450) 10^3/ul MPV (7.4-10.4) um3 Neut % (Auto) Lymph % (Auto) [place] % (Auto) Eos % (Auto) Baso % (Auto) Absolute Neuts (auto) Absolute Lymphs (auto) Absolute Monos (auto) Absolute Eos (auto) Absolute Basos (auto) Absolute Nucleated RBC Immature Gran % (0-9) % Neutrophils % (38-83) % Band Neutrophils % (0-8) % Lymphocytes % (25-47) % Monocytes % (0-7) % Eosinophils % (0-6) % Basophils % (0-2) % Nucleated RBC % Abs Neuts (Manual) (1.5-7.7) 10^3/ul Abs Lymphs (Manual) (1.0-4.8) 10^3/ul Abs Monocytes (Manual) (0-0.8) 10^3/ul Absolute Eos (Manual) (0-0.6) 10^3/ul Abs Basophils (Manual) (0-0.2) 10^3/ul Large Platelets Normal RBC Morphology (Normal) INR (Anticoag Therapy) (0.77-1.02) D-Dimer, Quantitative (Less Than 230) ng/mL VBG pH (7.33-7.43) VBG pCO2 (41-51) mmHg VBG pO2 (35-45) mmHg VBG HCO3 (24-28) mmol/L VBG O2 Saturation (70-80) % VBG Base Excess (0-4) Sodium (139-145) mmol/L Potassium (3.5-5.0) mmol/L Chloride (101-111) mmol/L Carbon Dioxide (22-32) mmol/L Anion Gap (2-11) mmol/L BUN (6-24) mg/dL Creatinine (0.51-0.95) mg/dL Est GFR ( Amer) (>60) Est GFR (Non-Af Amer) (>60) BUN/Creatinine Ratio (8-20) Glucose (70-100) mg/dL Lactic Acid 1.7 1.9 (0.5-2.0) mmol/L Calcium (8.6-10.3) mg/dL Magnesium (1.9-2.7) mg/dL Total Bilirubin (0.2-1.0) mg/dL AST (13-39) U/L ALT (7-52) U/L Alkaline Phosphatase (34-104) U/L Total Creatine Kinase (10-223) U/L Troponin I (<0.04) ng/mL C-Reactive Protein (< 5.00) mg/L B-Natriuretic Peptide 173 H ( - 100) pg/mL Total Protein (6.4-8.9) g/dL Albumin (3.2-5.2) g/dL Globulin (2-4) g/dL Albumin/Globulin Ratio (1-3) 03/08/18 Range/Units 19:29 WBC (3.5-10.8) 10^3/ul RBC (4.0-5.4) 10^6/ul Hgb (12.0-16.0) g/dl Hct (35-47) % MCV (80-97) fL MCH (27-31) pg MCHC (31-36) g/dl RDW (10.5-15) % Plt Count (150-450) 10^3/ul MPV (7.4-10.4) um3 Neut % (Auto) Lymph % (Auto) [place] % (Auto) Eos % (Auto) Baso % (Auto) Absolute Neuts (auto) Absolute Lymphs (auto) Absolute Monos (auto) Absolute Eos (auto) Absolute Basos (auto) Absolute Nucleated RBC Immature Gran % (0-9) % Neutrophils % (38-83) % Band Neutrophils % (0-8) % Lymphocytes % (25-47) % Monocytes % (0-7) % Eosinophils % (0-6) % Basophils % (0-2) % Nucleated RBC % Abs Neuts (Manual) (1.5-7.7) 10^3/ul Abs Lymphs (Manual) (1.0-4.8) 10^3/ul Abs Monocytes (Manual) (0-0.8) 10^3/ul Absolute Eos (Manual) (0-0.6) 10^3/ul Abs Basophils (Manual) (0-0.2) 10^3/ul Large Platelets Normal RBC Morphology (Normal) INR (Anticoag Therapy) (0.77-1.02) D-Dimer, Quantitative (Less Than 230) ng/mL VBG pH 7.37 (7.33-7.43) VBG pCO2 47 (41-51) mmHg VBG pO2 12 L (35-45) mmHg VBG HCO3 23.6 L (24-28) mmol/L VBG O2 Saturation 18.5 L (70-80) % VBG Base Excess 1.2 (0-4) Sodium (139-145) mmol/L Potassium (3.5-5.0) mmol/L Chloride (101-111) mmol/L Carbon Dioxide (22-32) mmol/L Anion Gap (2-11) mmol/L BUN (6-24) mg/dL Creatinine (0.51-0.95) mg/dL Est GFR ( Amer) (>60) Est GFR (Non-Af Amer) (>60) BUN/Creatinine Ratio (8-20) Glucose (70-100) mg/dL Lactic Acid (0.5-2.0) mmol/L Calcium (8.6-10.3) mg/dL Magnesium (1.9-2.7) mg/dL Total Bilirubin (0.2-1.0) mg/dL AST (13-39) U/L ALT (7-52) U/L Alkaline Phosphatase (34-104) U/L Total Creatine Kinase (10-223) U/L Troponin I (<0.04) ng/mL C-Reactive Protein (< 5.00) mg/L B-Natriuretic Peptide ( - 100) pg/mL Total Protein (6.4-8.9) g/dL Albumin (3.2-5.2) g/dL Globulin (2-4) g/dL Albumin/Globulin Ratio (1-3) Microbiology and Other Data: Microbiology 03/12/18 10:40 Gram Stain - Final Sputum Sputum Culture - Final YEAST 03/13/18 08:30 Urine Culture - Final Urine No Growth (<1,000 CFU/mL) 03/09/18 17:57 Legionella Urinary Antigen - Final Urine Negative Legionella Antigen Streptococcus pneumoniae Ag Screen - Final Negative S. pneumo Antigen 03/09/18 01:05 Nasal Screen MRSA (PCR)([facility]) - Final Nasal Mrsa Not Detected Assess/Plan/Problems-Billing Assessment: Ms. Cummings is a 62 yo F who has a h/o COPD, past bowel resection for bowel ischemia in 2011, CVA with residual r sided weakness, presented with SOB, PNA(suspected aspiration), H. influenzae bacteremia/sepsis - Patient Problems (1) Aspiration pneumonia Comment: with acute hypoxemic respiratory failure requiring intubation( extubated on 03/14/18) and severe sepsis due to it cont Ceftriaxone Appreciate ID consult. Echo shows thickening of mitral valve. BECCA recommended by ID-ordered for tomorrow May need 02 at discharge (2) COPD exacerbation Comment: cont Prednisone (3) HTN (hypertension) Comment: cont amlodipine and aldactone controlled (4) Hyperglycemia Comment: may be steroid induced. HbA1C pending. cont ISS (5) DVT prophylaxis Comment: - SQ heparin. Status and Disposition: inpatient. PMRU consult ongoing
[2018-03-17] MEDS: cefTRIAXone(*) 1 GM in NS 0.9% 50 ML* 50 ML IVPB SCH (14:24)
[2018-03-17] MEDS: oxyCODONE/Acetamin 5/325 MG* TAB PO PRN ×2 (17:52→23:42)
[2018-03-17] MEDS: QUEtiapine TAB* 25 MG PO SCH (22:24)
[2018-03-17] MEDS: ALPRAZolam TAB* 0.5 MG PO PRN (22:24)
[2018-03-18] MEDS: Heparin VIAL(*) 5000 UNITS/ML VIAL (FIVE THOUSAND) SUBCUT SCH ×3 (05:47→21:04)
[2018-03-18] MEDS: Insulin LISPRO* 1 UNITS UNIT SUBCUT SCH ×4 (09:04→21:02)
[2018-03-18] MEDS: amLODIPine TAB* 5 MG PO SCH (09:13)
[2018-03-18] MEDS: FLUoxetine CAP* 20 MG PO SCH (09:13)
[2018-03-18] MEDS: Gabapentin CAP(*) 300 MG PO SCH ×3 (09:13→21:01)
[2018-03-18] MEDS: Isosorbide Mononitrate ER TAB* 60 MG PO SCH (09:13)
[2018-03-18] MEDS: predniSONE TAB* 20 MG PO SCH (09:13)
[2018-03-18] MEDS: Nicotine PATCH 14 MG/24 HR* PATCH TRANSDERM SCH (09:14)
[2018-03-18] MEDS: Famotidine TAB* 20 MG PO SCH (09:14)
[2018-03-18] MEDS: Spironolactone TAB* 25 MG PO SCH (09:14)
[2018-03-18] MEDS: Aspirin EC TAB* 81 MG TAB.EC PO SCH (09:14)
[2018-03-18] MEDS: Potassium & Sodium Phos 250MG* = 1 PACKET PO SCH ×3 (09:14→21:01)
[2018-03-18] MEDS ORDERED: Naloxone* 0.4 MG/ML 1 ML VIAL ONE (12:10)
[2018-03-18] MEDS ORDERED: fentaNYL* 50 MCG/ML 2 ML VIAL (100 MCG VIAL) ONE (12:10)
[2018-03-18] MEDS ORDERED: Flumazenil* 0.1 MG/ML 5 ML MDV ONE (12:10)
[2018-03-18] MEDS ORDERED: Lidocaine 2% VISCOUS* 15 ML UDC ONE (12:10)
[2018-03-18] MEDS ORDERED: Midazolam* 1 MG/ML 10 ML VIAL (10 MG) ONE (12:11)
--- NOTE | 2018-03-18 14:50 | TEE ---
Patient: CAITLYN QUESADA [facility] Rec#: [id number] : 1955 Date: 03/18/2018 Age: 62y Height: 170.18 cm / 67.0 in Weight: 93.89 kg / 206.9 lbs Sex: F BSA: 2.05 Room#: [facility] Type: Inpatient Referring: Sofi Jade MD Performing: Chandler Avila MD Reading: Chandler Avila MD Mat Man: Audrey Ledesma RDCS Nurse: Xander Nickerson RN Nurse: Neftali COLMENARESCodie CC: Jeanie Montanez MD Transesophageal Echocardiogram Indication: Bacteremia BP: 104/79 HR: 86 Rhythm: NSR Findings History: HTN, pneumonia, CHF, CVA, COPD, KARLI, smoker, lupus. Technical Comments: The study quality is fair. Left Ventricle: The left ventricular chamber size is normal. There is normal left ventricular systolic function. The estimated ejection fraction is 55-60%. Left Atrium: The left atrial chamber size is normal. The left atrial appendage velocity is normal. No thrombus is visualized within the left atrium. There is no thrombus visualized in the left atrial appendage. Right Ventricle: The right ventricular cavity size is normal. The right ventricular global systolic function is normal. Right Atrium: The right atrial cavity size is normal. Interatrial septum appears intact without evidence of shunting. The bubble study is negative. A patent foramen ovale is not demonstrated with color Doppler and agitated contrast. Aortic Valve: The aortic valve is trileaflet. The aortic valve leaflets are mildly thickened. There is no evidence of aortic regurgitation. There is no evidence of aortic stenosis. A mass is visualized on the aortic valve which appears consistent with a vegetation. An echo-dense vegetation measuring 0.7 cm x 0.8 cm is visualized on the non coronary cusp of the aortic valve. Mitral Valve: The mitral valve leaflets are mildly thickened. There is a trace of mitral regurgitation. There is no evidence of mitral stenosis. No vegetation is observed on the mitral valve. Tricuspid Valve: The tricuspid valve leaflets are normal. There is trace tricuspid regurgitation. Unable to estimate the right ventricular systolic pressure. No vegetation is observed on the tricuspid valve. Pulmonic Valve: There is no evidence of pulmonic regurgitation. There is no pulmonic stenosis. No vegetation is observed on the pulmonic valve. Pericardium: There is no pericardial effusion. Aorta: There is no dilatation of the ascending aorta. The aortic root is normal in size. There is plaque visualized in the transverse aorta. There is minimal atherosclerotic plaque on the visualized segments of the aorta. Pulmonary Artery: The main pulmonary artery appears normal. Venous: The bicaval view was obtained and appears normal. The pulmonary veins appear normal in size. 4 of 4 visualized. The flow pattern of the pulmonary veins appear normal. BECCA Procedures: All standard views were attempted within the limitations of patient tolerance and safety. Limited transgastric imaging was obtained due to the patient's history of hiatal hernia. History and physical as well as labs were reviewed. The patient was in a fasting state. Risks and benefits of the procedure, including alternatives, were discussed and written informed consent was obtained. The patient and/or their health care senior customer service representative expressed understanding of the procedure, risks and benefits. Baseline and continuous monitoring of blood pressure, heart rate, pulse oximetry and heart rhythm was performed throughout the procedure. The appropriate time-out procedure was performed as per [facility] protocol. The patient was placed in the left lateral decubitus position. The patient's posterior pharynx was anesthetized with 20ml of 2% viscous lidocaine. The patient received IV Midazolam with a total dose of 7 mg. The patient received IV Fentanyl with a total dose of 100 mcg. An oral bite block was inserted for protection of oral dentition. The multiplane transesophageal echocardiogram probe was inserted through the posterior oropharynx and advanced into the esophagus without difficulty. Multiple 2D images were obtained of the heart and its related structures. Color flow Doppler was used for evaluation. Spectral Doppler was also used. The atrial septum was interrogated with color flow Doppler. At the conclusion of the procedure the probe was removed with continuous suction without complications. The patient tolerated the procedure with no apparent complications. Contrast: Normal saline was used as contrast for the bubble study. Image 49. Intravenous contrast was used to help determine presence of intracardiac shunting. Conclusions There is normal left ventricular systolic function. The estimated ejection fraction is 55-60%. Normal cardiac chamber sizes. An echo-dense vegetation measuring 0.7 cm x 0.8 cm is visualized on the non coronary cusp of the aortic valve. Since the prior transthoracic echocardiogram completed 03/16/18, aortic valve vegetation is now described (which is likely related to the inherent increased sensitivity of transesophageal echocardiographic detection of intra-cardiac vegetations as compared to transthoracic echocardiographic imaging). Measurements Name Value Normal Range Aortic Annulus 2.1 cm (1.4 - 2.6) Ao root diameter (2D) 3 cm (2.1 - 3.5) Ascending Ao 3.3 cm (2.1 - 3.4)
[2018-03-18] MEDS: cefTRIAXone(*) 1 GM in NS 0.9% 50 ML* 50 ML IVPB SCH (15:28)
--- NOTE | 2018-03-18 15:45 | PN ---
Subjective Date of Service: 03/18/18 Interval History: pt feels well. denies pain. seen after BECCA that showed aortic valve vegetation Objective Active Medications: Acetaminophen (Tylenol Adult Liq*) 650 mg PO Q4H PRN PRN Reason: FEVER/PAIN Last Admin: 03/17/18 04:29 Dose: 650 mg Al Hydrox/Mg Hydrox/Simethicone (Maalox Plus*) 30 ml PO Q6H PRN PRN Reason: INDIGESTION Albuterol (Ventolin 2.5 Mg/3 Ml Neb.Flakita*) 2.5 mg INH Q2H PRN PRN Reason: SOB/WHEEZING Last Admin: 03/14/18 09:10 Dose: 2.5 mg Albuterol/Ipratropium (Duoneb (Albuterol 2.5 Mg/Ipratropium 0.5 Mg)) 1 neb INH Q4H PRN PRN Reason: SOB/WHEEZING Last Admin: 03/14/18 07:20 Dose: 1 neb Alprazolam (Xanax Tab*) 0.5 mg PO DAILY PRN PRN Reason: ANXIETY Last Admin: 03/17/18 22:24 Dose: 0.5 mg Amlodipine Besylate (Norvasc Tab*) 10 mg PO DAILY [facility] Last Admin: 03/18/18 09:13 Dose: 10 mg Aspirin (Aspirin Ec Tab*) 81 mg PO DAILY [facility] Last Admin: 03/18/18 09:14 Dose: 81 mg Device (Nicotine Mouth Piece*) 1 each INH .USE WITH NICOTROL PRN PRN Reason: CRAVING Dextrose (D50w Syringe 50 Ml*) 12.5 gm IV PUSH .FOR FS < 60 - SS PRN PRN Reason: FS < 60 Docusate Sodium (Colace Cap*) 100 mg PO BID PRN PRN Reason: CONSTIPATION Famotidine (Pepcid Tab*) 20 mg PO DAILY [facility] Last Admin: 03/18/18 09:14 Dose: 20 mg Fluoxetine HCl (Prozac Cap*) 60 mg PO QAM [facility] Last Admin: 03/18/18 09:13 Dose: 60 mg Gabapentin (Neurontin Cap(*)) 300 mg PO TID [facility] Last Admin: 03/18/18 15:27 Dose: 300 mg Heparin Sodium (Porcine) (Heparin Vial(*)) 5,000 units SUBCUT Q8HR [facility] Last Admin: 03/18/18 15:27 Dose: 5,000 units Heparin Sodium (Porcine) (Heparin Flush Picc/Ml/Cvc(*)) 1 ml FLUSH 0600,1800 [facility] PRN Reason: Protocol Last Admin: 03/18/18 05:47 Dose: 3 ml Ceftriaxone Sodium 1 gm/ (Sodium Chloride) 50 mls @ 200 mls/hr IVPB Q24H [facility] Stop: 03/22/18 13:59 Last Admin: 03/18/18 15:28 Dose: 200 mls/hr Insulin Human Lispro (Humalog*) 0 units SUBCUT ACHS [facility] PRN Reason: Protocol Last Admin: 03/18/18 13:50 Dose: Not Given Isosorbide Mononitrate (Imdur Er Tab*) 60 mg PO DAILY [facility] Last Admin: 03/18/18 09:13 Dose: 60 mg Nicotine (Nicotine Patch 14 Mg/24 Hr*) 1 patch TRANSDERM DAILY [facility] Last Admin: 03/18/18 09:14 Dose: 1 patch Ondansetron HCl (Zofran Inj*) 4 mg IV Q4H PRN PRN Reason: NAUSEA/VOMITING Last Admin: 03/09/18 11:57 Dose: 4 mg Oxycodone/Acetaminophen (Percocet 5/325 Tab*) 1 tab PO Q6H PRN PRN Reason: PAIN Last Admin: 03/17/18 23:42 Dose: 1 tab Pharmacy Profile Note (Nicotine Patch Removal Note*) 1 note PATCH OFF 2200 [facility] Potassium Phos/Sodium Phos (Neutra Phos 250 Mg Chay*) 250 mg PO TID [facility] Last Admin: 03/18/18 15:27 Dose: 250 mg Prednisone (Deltasone Tab*) 40 mg PO DAILY [facility] Last Admin: 03/18/18 09:13 Dose: 40 mg Prochlorperazine Edisylate (Compazine Inj*) 5 mg IV Q6H PRN PRN Reason: NAUSEA/VOMITING Last Admin: 03/16/18 12:24 Dose: 5 mg Quetiapine Fumarate (Seroquel Tab*) 50 mg PO BEDTIME [facility] Last Admin: 03/17/18 22:24 Dose: 50 mg Senna (Senokot Tab*) 1 tab PO BID PRN PRN Reason: CONSTIPATION Last Admin: 05/10/18 21:01 Dose: 1 tab Spironolactone (Aldactone Tab*) 25 mg PO DAILY [facility] Last Admin: 03/18/18 09:14 Dose: 25 mg Vital Signs - 8 hr 03/18/18 03/18/18 03/18/18 07:48 08:00 09:13 Temperature 97.3 F Pulse Rate 59 Respiratory 20 16 18 Rate Blood Pressure 112/67 (mmHg) O2 Sat by Pulse 100 100 Oximetry 03/18/18 15:27 Temperature Pulse Rate Respiratory 18 Rate Blood Pressure (mmHg) O2 Sat by Pulse Oximetry Oxygen Devices in Use Now: Nasal Cannula Appearance: 62 yo f in nAD, AAOx3 Eyes: No Scleral Icterus, PERRLA Ears/Nose/Mouth/Throat: NL Teeth, Lips, Gums, Mucous Membranes Moist Neck: NL Appearance and Movements; NL JVP Respiratory: Symmetrical Chest Expansion and Respiratory Effort, - - rhonchi in RML Cardiovascular: NL Sounds; No Murmurs; No JVD, RRR Abdominal: NL Sounds; No Tenderness; No Distention Lymphatic: No Cervical Adenopathy Extremities: No Edema, No Clubbing, Cyanosis Skin: No Rash or Ulcers, No Nodules or Sclerosis Neurological: Alert and Oriented x 3, NL Muscle Strength and Tone Result Diagrams: 03/15/18 06:45 03/15/18 06:45 Additional Lab and Data: Lab Results 03/08/18 03/08/18 03/08/18 Range/Units 18:33 18:34 18:34 WBC 13.7 H (3.5-10.8) 10^3/ul RBC 4.59 (4.0-5.4) 10^6/ul Hgb 13.6 (12.0-16.0) g/dl Hct 39 (35-47) % MCV 86 (80-97) fL MCH 30 (27-31) pg MCHC 34 (31-36) g/dl RDW 15 (10.5-15) % Plt Count 246 (150-450) 10^3/ul MPV 7.8 (7.4-10.4) um3 Neut % (Auto) Not Reportable Lymph % (Auto) Not Reportable Josephine % (Auto) Not Reportable Eos % (Auto) Not Reportable Baso % (Auto) Not Reportable Absolute Neuts (auto) Not Reportable Absolute Lymphs (auto) Not Reportable Absolute Monos (auto) Not Reportable Absolute Eos (auto) Not Reportable Absolute Basos (auto) Not Reportable Absolute Nucleated RBC Not Reportable Immature Gran % 6 (0-9) % Neutrophils % 79 (38-83) % Band Neutrophils % 6 (0-8) % Lymphocytes % 8 L (25-47) % Monocytes % 7 (0-7) % Eosinophils % 0 (0-6) % Basophils % 0 (0-2) % Nucleated RBC % Not Reportable Abs Neuts (Manual) 10.8 H (1.5-7.7) 10^3/ul Abs Lymphs (Manual) 1.1 (1.0-4.8) 10^3/ul Abs Monocytes (Manual) 1.0 H (0-0.8) 10^3/ul Absolute Eos (Manual) 0 (0-0.6) 10^3/ul Abs Basophils (Manual) 0 (0-0.2) 10^3/ul Large Platelets Present Normal RBC Morphology Normal (Normal) INR (Anticoag Therapy) 1.18 H (0.77-1.02) D-Dimer, Quantitative 911 H (Less Than 230) ng/mL VBG pH (7.33-7.43) VBG pCO2 (41-51) mmHg VBG pO2 (35-45) mmHg VBG HCO3 (24-28) mmol/L VBG O2 Saturation (70-80) % VBG Base Excess (0-4) Sodium 136 L (139-145) mmol/L Potassium 3.1 L (3.5-5.0) mmol/L Chloride 102 (101-111) mmol/L Carbon Dioxide 24 (22-32) mmol/L Anion Gap 10 (2-11) mmol/L BUN 12 (6-24) mg/dL Creatinine 0.80 (0.51-0.95) mg/dL Est GFR ( Amer) 93.8 (>60) Est GFR (Non-Af Amer) 72.9 (>60) BUN/Creatinine Ratio 15.0 (8-20) Glucose 92 (70-100) mg/dL Lactic Acid (0.5-2.0) mmol/L Calcium 8.4 L (8.6-10.3) mg/dL Magnesium 1.0 L (1.9-2.7) mg/dL Total Bilirubin 1.30 H (0.2-1.0) mg/dL AST 12 L (13-39) U/L ALT 9 (7-52) U/L Alkaline Phosphatase 85 (34-104) U/L Total Creatine Kinase 86 (10-223) U/L Troponin I 0.00 (<0.04) ng/mL C-Reactive Protein 108.11 H (< 5.00) mg/L B-Natriuretic Peptide ( - 100) pg/mL Total Protein 6.6 (6.4-8.9) g/dL Albumin 3.3 (3.2-5.2) g/dL Globulin 3.3 (2-4) g/dL Albumin/Globulin Ratio 1.0 (1-3) 03/08/18 03/08/18 03/08/18 Range/Units 18:34 18:34 18:52 WBC (3.5-10.8) 10^3/ul RBC (4.0-5.4) 10^6/ul Hgb (12.0-16.0) g/dl Hct (35-47) % MCV (80-97) fL MCH (27-31) pg MCHC (31-36) g/dl RDW (10.5-15) % Plt Count (150-450) 10^3/ul MPV (7.4-10.4) um3 Neut % (Auto) Lymph % (Auto) Josephine % (Auto) Eos % (Auto) Baso % (Auto) Absolute Neuts (auto) Absolute Lymphs (auto) Absolute Monos (auto) Absolute Eos (auto) Absolute Basos (auto) Absolute Nucleated RBC Immature Gran % (0-9) % Neutrophils % (38-83) % Band Neutrophils % (0-8) % Lymphocytes % (25-47) % Monocytes % (0-7) % Eosinophils % (0-6) % Basophils % (0-2) % Nucleated RBC % Abs Neuts (Manual) (1.5-7.7) 10^3/ul Abs Lymphs (Manual) (1.0-4.8) 10^3/ul Abs Monocytes (Manual) (0-0.8) 10^3/ul Absolute Eos (Manual) (0-0.6) 10^3/ul Abs Basophils (Manual) (0-0.2) 10^3/ul Large Platelets Normal RBC Morphology (Normal) INR (Anticoag Therapy) (0.77-1.02) D-Dimer, Quantitative (Less Than 230) ng/mL VBG pH (7.33-7.43) VBG pCO2 (41-51) mmHg VBG pO2 (35-45) mmHg VBG HCO3 (24-28) mmol/L VBG O2 Saturation (70-80) % VBG Base Excess (0-4) Sodium (139-145) mmol/L Potassium (3.5-5.0) mmol/L Chloride (101-111) mmol/L Carbon Dioxide (22-32) mmol/L Anion Gap (2-11) mmol/L BUN (6-24) mg/dL Creatinine (0.51-0.95) mg/dL Est GFR ( Amer) (>60) Est GFR (Non-Af Amer) (>60) BUN/Creatinine Ratio (8-20) Glucose (70-100) mg/dL Lactic Acid 1.7 1.9 (0.5-2.0) mmol/L Calcium (8.6-10.3) mg/dL Magnesium (1.9-2.7) mg/dL Total Bilirubin (0.2-1.0) mg/dL AST (13-39) U/L ALT (7-52) U/L Alkaline Phosphatase (34-104) U/L Total Creatine Kinase (10-223) U/L Troponin I (<0.04) ng/mL C-Reactive Protein (< 5.00) mg/L B-Natriuretic Peptide 173 H ( - 100) pg/mL Total Protein (6.4-8.9) g/dL Albumin (3.2-5.2) g/dL Globulin (2-4) g/dL Albumin/Globulin Ratio (1-3) 03/08/18 Range/Units 19:29 WBC (3.5-10.8) 10^3/ul RBC (4.0-5.4) 10^6/ul Hgb (12.0-16.0) g/dl Hct (35-47) % MCV (80-97) fL MCH (27-31) pg MCHC (31-36) g/dl RDW (10.5-15) % Plt Count (150-450) 10^3/ul MPV (7.4-10.4) um3 Neut % (Auto) Lymph % (Auto) Josephine % (Auto) Eos % (Auto) Baso % (Auto) Absolute Neuts (auto) Absolute Lymphs (auto) Absolute Monos (auto) Absolute Eos (auto) Absolute Basos (auto) Absolute Nucleated RBC Immature Gran % (0-9) % Neutrophils % (38-83) % Band Neutrophils % (0-8) % Lymphocytes % (25-47) % Monocytes % (0-7) % Eosinophils % (0-6) % Basophils % (0-2) % Nucleated RBC % Abs Neuts (Manual) (1.5-7.7) 10^3/ul Abs Lymphs (Manual) (1.0-4.8) 10^3/ul Abs Monocytes (Manual) (0-0.8) 10^3/ul Absolute Eos (Manual) (0-0.6) 10^3/ul Abs Basophils (Manual) (0-0.2) 10^3/ul Large Platelets Normal RBC Morphology (Normal) INR (Anticoag Therapy) (0.77-1.02) D-Dimer, Quantitative (Less Than 230) ng/mL VBG pH 7.37 (7.33-7.43) VBG pCO2 47 (41-51) mmHg VBG pO2 12 L (35-45) mmHg VBG HCO3 23.6 L (24-28) mmol/L VBG O2 Saturation 18.5 L (70-80) % VBG Base Excess 1.2 (0-4) Sodium (139-145) mmol/L Potassium (3.5-5.0) mmol/L Chloride (101-111) mmol/L Carbon Dioxide (22-32) mmol/L Anion Gap (2-11) mmol/L BUN (6-24) mg/dL Creatinine (0.51-0.95) mg/dL Est GFR ( Amer) (>60) Est GFR (Non-Af Amer) (>60) BUN/Creatinine Ratio (8-20) Glucose (70-100) mg/dL Lactic Acid (0.5-2.0) mmol/L Calcium (8.6-10.3) mg/dL Magnesium (1.9-2.7) mg/dL Total Bilirubin (0.2-1.0) mg/dL AST (13-39) U/L ALT (7-52) U/L Alkaline Phosphatase (34-104) U/L Total Creatine Kinase (10-223) U/L Troponin I (<0.04) ng/mL C-Reactive Protein (< 5.00) mg/L B-Natriuretic Peptide ( - 100) pg/mL Total Protein (6.4-8.9) g/dL Albumin (3.2-5.2) g/dL Globulin (2-4) g/dL Albumin/Globulin Ratio (1-3) Microbiology and Other Data: Microbiology 03/12/18 10:40 Gram Stain - Final Sputum Sputum Culture - Final YEAST 03/13/18 08:30 Urine Culture - Final Urine No Growth (<1,000 CFU/mL) 03/09/18 17:57 Legionella Urinary Antigen - Final Urine Negative Legionella Antigen Streptococcus pneumoniae Ag Screen - Final Negative S. pneumo Antigen 03/09/18 01:05 Nasal Screen MRSA (PCR)([facility]) - Final Nasal Mrsa Not Detected Assess/Plan/Problems-Billing Assessment: Ms. Cummings is a 62 yo F who has a h/o COPD, past bowel resection for bowel ischemia in 2011, CVA with residual r sided weakness, presented with SOB, PNA(suspected aspiration), H. influenzae bacteremia/sepsis - Patient Problems (1) Bacteremia Comment: H. influenzae bacteremia and aortic vave vegetation at 0.8 cm. d/w ID , pt will need 6 weeks of IV Ceftriaxone PICC line in place (2) Aspiration pneumonia Comment: with acute hypoxemic respiratory failure requiring intubation( extubated on 03/14/18) and severe sepsis due to it Will need 02 at discharge (3) COPD exacerbation Comment: cont Prednisone, taper the dose today (4) HTN (hypertension) Comment: cont amlodipine and aldactone controlled (5) Hyperglycemia Comment: may be steroid induced. HbA1C 6.3-pt has h/o impaired glucose tolerance. cont ISS (6) DVT prophylaxis Comment: - SQ heparin. Status and Disposition: inpatient. Pt will be discharged to [facility] on Wednesday
[2018-03-18] MEDS: oxyCODONE/Acetamin 5/325 MG* TAB PO PRN (19:36)
[2018-03-18] MEDS: QUEtiapine TAB* 25 MG PO SCH (23:46)
[2018-03-19] MEDS: ALPRAZolam TAB* 0.5 MG PO PRN ×2 (00:01→21:46)
[2018-03-19] MEDS: Nicotine Patch Removal NOTE PATCH OFF SCH ×2 (00:03→22:13)
[2018-03-19] MEDS: Heparin VIAL(*) 5000 UNITS/ML VIAL (FIVE THOUSAND) SUBCUT SCH ×3 (06:28→21:40)
[2018-03-19 06:57] LABS: ABS Basophils 0.1 10^3/ul (0-0.2); ABS Eosinophils 0.2 10^3/ul (0-0.6); ABS Monocytes 0.7 10^3/ul (0-0.8); ABS Neutrophils 7.1 10^3/ul (1.5-7.7); ABS Nucleated RBC 0 10^3/ul; Eosinophil % 2.1 % (0-6); Hematocrit 32 % (35-47); Hemoglobin 10.8 g/dl (12.0-16.0); Lymphocyte % 19.9 % (25-47); Mean Corpuscular HGB Conc 34 g/dl (31-36); Mean Corpuscular Hemoglobin 29 pg (27-31); Mean Corpuscular Volume 88 fL (80-97); Mean Platelet Volume 7.6 um3 (7.4-10.4); Nucleated Red Blood Cells % 0; Platelet Count 282 10^3/ul (150-450); Red Blood Count 3.69 10^6/ul (4.0-5.4); Red Cell Distribution Width 15 % (10.5-15); White Blood Count 10.1 10^3/ul (3.5-10.8)
[2018-03-19 07:13] LABS: EGFR Non-African American 99.7 (>60)
[2018-03-19] MEDS: Gabapentin CAP(*) 300 MG PO SCH ×2 (09:19→13:37)
[2018-03-19] MEDS: amLODIPine TAB* 5 MG PO SCH (09:20)
[2018-03-19] MEDS: predniSONE TAB* 20 MG PO SCH (09:22)
[2018-03-19] MEDS: FLUoxetine CAP* 20 MG PO SCH (09:22)
[2018-03-19] MEDS: Famotidine TAB* 20 MG PO SCH (09:24)
[2018-03-19] MEDS: Isosorbide Mononitrate ER TAB* 60 MG PO SCH (09:24)
[2018-03-19] MEDS: Spironolactone TAB* 25 MG PO SCH (09:24)
[2018-03-19] MEDS: Aspirin EC TAB* 81 MG TAB.EC PO SCH (09:24)
[2018-03-19] MEDS: oxyCODONE/Acetamin 5/325 MG* TAB PO PRN ×2 (09:25→16:22)
[2018-03-19] MEDS: Insulin LISPRO* 1 UNITS UNIT SUBCUT SCH ×4 (09:26→21:41)
[2018-03-19] MEDS: Nicotine PATCH 14 MG/24 HR* PATCH TRANSDERM SCH (09:28)
[2018-03-19] MEDS: Potassium & Sodium Phos 250MG* = 1 PACKET PO SCH ×3 (09:35→21:41)
[2018-03-19] MEDS ORDERED: cefTRIAXone(*) 2 GM in NS 0.9% 50 ML* 50 ML IVPB SCH (11:00)
[2018-03-19] MEDS ORDERED: cefTRIAXone(*) 2 GM in NS 0.9% 100 ML* 100 ML IVPB SCH (12:45)
[2018-03-19] MEDS: Albuterol 2.5 MG/3 ML NEB.SOL* (0.083%) INH PRN (13:57)
[2018-03-19] MEDS ORDERED: Albuterol HFA INHALER* 8 gm MDI INH SCH (15:00)
[2018-03-19] MEDS ORDERED: Spiriva Inhaler DEVICE* 1 EACH DEVICE INH SCH ×2 (15:00→16:00)
[2018-03-19] MEDS ORDERED: Albuterol HFA INHALER* 8 gm MDI INH PRN (15:12)
--- NOTE | 2018-03-19 15:27 | PN ---
Subjective Date of Service: 03/19/18 Interval History: Pt c/o cough and sore throat.Her chronic LBP is also bothering her. Objective Active Medications: Acetaminophen (Tylenol Adult Liq*) 650 mg PO Q4H PRN PRN Reason: FEVER/PAIN Last Admin: 03/17/18 04:29 Dose: 650 mg Al Hydrox/Mg Hydrox/Simethicone (Maalox Plus*) 30 ml PO Q6H PRN PRN Reason: INDIGESTION Albuterol (Ventolin 2.5 Mg/3 Ml Neb.Flakita*) 2.5 mg INH BID [facility] Albuterol (Ventolin Hfa Inhaler*) 1 puff INH Q4H PRN PRN Reason: SOB/WHEEZING Alprazolam (Xanax Tab*) 0.5 mg PO DAILY PRN PRN Reason: ANXIETY Last Admin: 03/19/18 00:01 Dose: 0.5 mg Amlodipine Besylate (Norvasc Tab*) 10 mg PO DAILY [facility] Last Admin: 03/19/18 09:20 Dose: 10 mg Aspirin (Aspirin Ec Tab*) 81 mg PO DAILY [facility] Last Admin: 03/19/18 09:24 Dose: 81 mg Device (Nicotine Mouth Piece*) 1 each INH .USE WITH NICOTROL PRN PRN Reason: CRAVING Device (Tiotropium Inhaler Device*) 1 each INH .USE w/ SPIRIVA CAPS [facility] Dextrose (D50w Syringe 50 Ml*) 12.5 gm IV PUSH .FOR FS < 60 - SS PRN PRN Reason: FS < 60 Docusate Sodium (Colace Cap*) 100 mg PO BID PRN PRN Reason: CONSTIPATION Famotidine (Pepcid Tab*) 20 mg PO DAILY [facility] Last Admin: 03/19/18 09:24 Dose: 20 mg Fluoxetine HCl (Prozac Cap*) 60 mg PO QAM [facility] Last Admin: 03/19/18 09:22 Dose: 60 mg Gabapentin (Neurontin Cap(*)) 300 mg PO TID [facility] Last Admin: 03/19/18 13:37 Dose: 300 mg Heparin Sodium (Porcine) (Heparin Vial(*)) 5,000 units SUBCUT Q8HR [facility] Last Admin: 03/19/18 13:39 Dose: 5,000 units Heparin Sodium (Porcine) (Heparin Flush Picc/Ml/Cvc(*)) 1 ml FLUSH 0600,1800 [facility] PRN Reason: Protocol Last Admin: 03/19/18 06:28 Dose: 3 ml Ceftriaxone Sodium 2 gm/ (Sodium Chloride) 100 mls @ 400 mls/hr IVPB 1100 [facility] Stop: 04/18/18 10:59 Insulin Human Lispro (Humalog*) 0 units SUBCUT ACHS [facility] PRN Reason: Protocol Last Admin: 03/19/18 13:38 Dose: 3 units Isosorbide Mononitrate (Imdur Er Tab*) 60 mg PO DAILY [facility] Last Admin: 03/19/18 09:24 Dose: 60 mg Nicotine (Nicotine Patch 14 Mg/24 Hr*) 1 patch TRANSDERM DAILY [facility] Last Admin: 03/19/18 09:28 Dose: 1 patch Ondansetron HCl (Zofran Inj*) 4 mg IV Q4H PRN PRN Reason: NAUSEA/VOMITING Last Admin: 03/09/18 11:57 Dose: 4 mg Oxycodone/Acetaminophen (Percocet 5/325 Tab*) 1 tab PO Q6H PRN PRN Reason: PAIN Last Admin: 03/19/18 09:25 Dose: 1 tab Pharmacy Profile Note (Nicotine Patch Removal Note*) 1 note PATCH OFF 2200 [facility] Last Admin: 03/19/18 00:03 Dose: 1 note Potassium Phos/Sodium Phos (Neutra Phos 250 Mg Chay*) 250 mg PO TID [facility] Last Admin: 03/19/18 13:41 Dose: 250 mg Prednisone (Deltasone Tab*) 20 mg PO DAILY [facility] Last Admin: 03/19/18 09:22 Dose: 20 mg Prochlorperazine Edisylate (Compazine Inj*) 5 mg IV Q6H PRN PRN Reason: NAUSEA/VOMITING Last Admin: 03/16/18 12:24 Dose: 5 mg Quetiapine Fumarate (Seroquel Tab*) 50 mg PO BEDTIME [facility] Last Admin: 03/18/18 23:46 Dose: 50 mg Senna (Senokot Tab*) 1 tab PO BID PRN PRN Reason: CONSTIPATION Last Admin: 03/10/18 21:01 Dose: 1 tab Spironolactone (Aldactone Tab*) 25 mg PO DAILY [facility] Last Admin: 03/19/18 09:24 Dose: 25 mg Throat Lozenges (Chloraseptic Faustina*) 1 faustina PO Q6H PRN PRN Reason: SORE THROAT Tiotropium [place] (Spiriva Cap.Inh*) 1 cap INH DAILY [facility] Vital Signs - 8 hr 03/19/18 03/19/18 03/19/18 08:10 09:19 09:25 Temperature 97.4 F Pulse Rate 80 Respiratory 18 18 18 Rate Blood Pressure 111/75 (mmHg) O2 Sat by Pulse 100 Oximetry 03/19/18 03/19/18 03/19/18 12:30 13:37 14:00 Temperature Pulse Rate 77 Respiratory 18 18 18 Rate Blood Pressure (mmHg) O2 Sat by Pulse 100 Oximetry Oxygen Devices in Use Now: Nasal Cannula Appearance: 62 yo F in nAD, aAOx3 Eyes: No Scleral Icterus, PERRLA Ears/Nose/Mouth/Throat: NL Teeth, Lips, Gums, Mucous Membranes Moist Neck: NL Appearance and Movements; NL JVP, Trachea Midline Respiratory: Symmetrical Chest Expansion and Respiratory Effort, - - crackles at RML Cardiovascular: NL Sounds; No Murmurs; No JVD, RRR Abdominal: NL Sounds; No Tenderness; No Distention Lymphatic: No Cervical Adenopathy Extremities: No Edema, No Clubbing, Cyanosis Skin: No Rash or Ulcers, No Nodules or Sclerosis Neurological: Alert and Oriented x 3, - - minimal R UE weakness Result Diagrams: 03/19/18 06:45 03/19/18 06:45 Additional Lab and Data: Lab Results 03/08/18 03/08/18 03/08/18 Range/Units 18:33 18:34 18:34 WBC 13.7 H (3.5-10.8) 10^3/ul RBC 4.59 (4.0-5.4) 10^6/ul Hgb 13.6 (12.0-16.0) g/dl Hct 39 (35-47) % MCV 86 (80-97) fL MCH 30 (27-31) pg MCHC 34 (31-36) g/dl RDW 15 (10.5-15) % Plt Count 246 (150-450) 10^3/ul MPV 7.8 (7.4-10.4) um3 Neut % (Auto) Not Reportable Lymph % (Auto) Not Reportable Bartholomew % (Auto) Not Reportable Eos % (Auto) Not Reportable Baso % (Auto) Not Reportable Absolute Neuts (auto) Not Reportable Absolute Lymphs (auto) Not Reportable Absolute Monos (auto) Not Reportable Absolute Eos (auto) Not Reportable Absolute Basos (auto) Not Reportable Absolute Nucleated RBC Not Reportable Immature Gran % 6 (0-9) % Neutrophils % 79 (38-83) % Band Neutrophils % 6 (0-8) % Lymphocytes % 8 L (25-47) % Monocytes % 7 (0-7) % Eosinophils % 0 (0-6) % Basophils % 0 (0-2) % Nucleated RBC % Not Reportable Abs Neuts (Manual) 10.8 H (1.5-7.7) 10^3/ul Abs Lymphs (Manual) 1.1 (1.0-4.8) 10^3/ul Abs Monocytes (Manual) 1.0 H (0-0.8) 10^3/ul Absolute Eos (Manual) 0 (0-0.6) 10^3/ul Abs Basophils (Manual) 0 (0-0.2) 10^3/ul Large Platelets Present Normal RBC Morphology Normal (Normal) INR (Anticoag Therapy) 1.18 H (0.77-1.02) D-Dimer, Quantitative 911 H (Less Than 230) ng/mL VBG pH (7.33-7.43) VBG pCO2 (41-51) mmHg VBG pO2 (35-45) mmHg VBG HCO3 (24-28) mmol/L VBG O2 Saturation (70-80) % VBG Base Excess (0-4) Sodium 136 L (139-145) mmol/L Potassium 3.1 L (3.5-5.0) mmol/L Chloride 102 (101-111) mmol/L Carbon Dioxide 24 (22-32) mmol/L Anion Gap 10 (2-11) mmol/L BUN 12 (6-24) mg/dL Creatinine 0.80 (0.51-0.95) mg/dL Est GFR ( Amer) 93.8 (>60) Est GFR (Non-Af Amer) 72.9 (>60) BUN/Creatinine Ratio 15.0 (8-20) Glucose 92 (70-100) mg/dL Lactic Acid (0.5-2.0) mmol/L Calcium 8.4 L (8.6-10.3) mg/dL Magnesium 1.0 L (1.9-2.7) mg/dL Total Bilirubin 1.30 H (0.2-1.0) mg/dL AST 12 L (13-39) U/L ALT 9 (7-52) U/L Alkaline Phosphatase 85 (34-104) U/L Total Creatine Kinase 86 (10-223) U/L Troponin I 0.00 (<0.04) ng/mL C-Reactive Protein 108.11 H (< 5.00) mg/L B-Natriuretic Peptide ( - 100) pg/mL Total Protein 6.6 (6.4-8.9) g/dL Albumin 3.3 (3.2-5.2) g/dL Globulin 3.3 (2-4) g/dL Albumin/Globulin Ratio 1.0 (1-3) 03/08/18 03/08/18 03/08/18 Range/Units 18:34 18:34 18:52 WBC (3.5-10.8) 10^3/ul RBC (4.0-5.4) 10^6/ul Hgb (12.0-16.0) g/dl Hct (35-47) % MCV (80-97) fL MCH (27-31) pg MCHC (31-36) g/dl RDW (10.5-15) % Plt Count (150-450) 10^3/ul MPV (7.4-10.4) um3 Neut % (Auto) Lymph % (Auto) Bartholomew % (Auto) Eos % (Auto) Baso % (Auto) Absolute Neuts (auto) Absolute Lymphs (auto) Absolute Monos (auto) Absolute Eos (auto) Absolute Basos (auto) Absolute Nucleated RBC Immature Gran % (0-9) % Neutrophils % (38-83) % Band Neutrophils % (0-8) % Lymphocytes % (25-47) % Monocytes % (0-7) % Eosinophils % (0-6) % Basophils % (0-2) % Nucleated RBC % Abs Neuts (Manual) (1.5-7.7) 10^3/ul Abs Lymphs (Manual) (1.0-4.8) 10^3/ul Abs Monocytes (Manual) (0-0.8) 10^3/ul Absolute Eos (Manual) (0-0.6) 10^3/ul Abs Basophils (Manual) (0-0.2) 10^3/ul Large Platelets Normal RBC Morphology (Normal) INR (Anticoag Therapy) (0.77-1.02) D-Dimer, Quantitative (Less Than 230) ng/mL VBG pH (7.33-7.43) VBG pCO2 (41-51) mmHg VBG pO2 (35-45) mmHg VBG HCO3 (24-28) mmol/L VBG O2 Saturation (70-80) % VBG Base Excess (0-4) Sodium (139-145) mmol/L Potassium (3.5-5.0) mmol/L Chloride (101-111) mmol/L Carbon Dioxide (22-32) mmol/L Anion Gap (2-11) mmol/L BUN (6-24) mg/dL Creatinine (0.51-0.95) mg/dL Est GFR ( Amer) (>60) Est GFR (Non-Af Amer) (>60) BUN/Creatinine Ratio (8-20) Glucose (70-100) mg/dL Lactic Acid 1.7 1.9 (0.5-2.0) mmol/L Calcium (8.6-10.3) mg/dL Magnesium (1.9-2.7) mg/dL Total Bilirubin (0.2-1.0) mg/dL AST (13-39) U/L ALT (7-52) U/L Alkaline Phosphatase (34-104) U/L Total Creatine Kinase (10-223) U/L Troponin I (<0.04) ng/mL C-Reactive Protein (< 5.00) mg/L B-Natriuretic Peptide 173 H ( - 100) pg/mL Total Protein (6.4-8.9) g/dL Albumin (3.2-5.2) g/dL Globulin (2-4) g/dL Albumin/Globulin Ratio (1-3) 03/08/18 Range/Units 19:29 WBC (3.5-10.8) 10^3/ul RBC (4.0-5.4) 10^6/ul Hgb (12.0-16.0) g/dl Hct (35-47) % MCV (80-97) fL MCH (27-31) pg MCHC (31-36) g/dl RDW (10.5-15) % Plt Count (150-450) 10^3/ul MPV (7.4-10.4) um3 Neut % (Auto) Lymph % (Auto) Bartholomew % (Auto) Eos % (Auto) Baso % (Auto) Absolute Neuts (auto) Absolute Lymphs (auto) Absolute Monos (auto) Absolute Eos (auto) Absolute Basos (auto) Absolute Nucleated RBC Immature Gran % (0-9) % Neutrophils % (38-83) % Band Neutrophils % (0-8) % Lymphocytes % (25-47) % Monocytes % (0-7) % Eosinophils % (0-6) % Basophils % (0-2) % Nucleated RBC % Abs Neuts (Manual) (1.5-7.7) 10^3/ul Abs Lymphs (Manual) (1.0-4.8) 10^3/ul Abs Monocytes (Manual) (0-0.8) 10^3/ul Absolute Eos (Manual) (0-0.6) 10^3/ul Abs Basophils (Manual) (0-0.2) 10^3/ul Large Platelets Normal RBC Morphology (Normal) INR (Anticoag Therapy) (0.77-1.02) D-Dimer, Quantitative (Less Than 230) ng/mL VBG pH 7.37 (7.33-7.43) VBG pCO2 47 (41-51) mmHg VBG pO2 12 L (35-45) mmHg VBG HCO3 23.6 L (24-28) mmol/L VBG O2 Saturation 18.5 L (70-80) % VBG Base Excess 1.2 (0-4) Sodium (139-145) mmol/L Potassium (3.5-5.0) mmol/L Chloride (101-111) mmol/L Carbon Dioxide (22-32) mmol/L Anion Gap (2-11) mmol/L BUN (6-24) mg/dL Creatinine (0.51-0.95) mg/dL Est GFR ( Amer) (>60) Est GFR (Non-Af Amer) (>60) BUN/Creatinine Ratio (8-20) Glucose (70-100) mg/dL Lactic Acid (0.5-2.0) mmol/L Calcium (8.6-10.3) mg/dL Magnesium (1.9-2.7) mg/dL Total Bilirubin (0.2-1.0) mg/dL AST (13-39) U/L ALT (7-52) U/L Alkaline Phosphatase (34-104) U/L Total Creatine Kinase (10-223) U/L Troponin I (<0.04) ng/mL C-Reactive Protein (< 5.00) mg/L B-Natriuretic Peptide ( - 100) pg/mL Total Protein (6.4-8.9) g/dL Albumin (3.2-5.2) g/dL Globulin (2-4) g/dL Albumin/Globulin Ratio (1-3) Microbiology and Other Data: Microbiology 03/12/18 10:40 Gram Stain - Final Sputum Sputum Culture - Final YEAST 03/13/18 08:30 Urine Culture - Final Urine No Growth (<1,000 CFU/mL) 03/09/18 17:57 Legionella Urinary Antigen - Final Urine Negative Legionella Antigen Streptococcus pneumoniae Ag Screen - Final Negative S. pneumo Antigen 03/09/18 01:05 Nasal Screen MRSA (PCR)([place]) - Final Nasal Mrsa Not Detected Assess/Plan/Problems-Billing Assessment: Ms. Cummings is a 62 yo F who has a h/o COPD, past bowel resection for bowel ischemia in 2011, CVA with residual r sided weakness, presented with SOB, PNA(suspected aspiration), H. influenzae bacteremia/sepsis - Patient Problems (1) Bacteremia Comment: H. influenzae bacteremia and aortic vave vegetation at 0.8 cm. d/w ID , pt will need 6 weeks of IV Ceftriaxone 2 grams Q24H. PICC line in place (2) Aspiration pneumonia Comment: with acute hypoxemic respiratory failure requiring intubation( extubated on 03/14/18) and severe sepsis due to it Will need 02 at discharge. Pt Continues to c/o cough and feeling poorly. will obtain f/u CXR (3) COPD exacerbation Comment: cont Prednisone 20 mg daily (tapered down on 03/18/18) (4) HTN (hypertension) Comment: cont amlodipine and aldactone controlled (5) Hyperglycemia Comment: may be steroid induced. HbA1C 6.3-pt has h/o impaired glucose tolerance. cont ISS DM nutrition education ordered (6) Chronic lower back pain Comment: will increase gabapentin from 300 to 400 mg TID. cont Percocet prn. Pt had a steroid injection to lower back days porior to admission. (7) DVT prophylaxis Comment: - SQ heparin. Status and Disposition: inpatient. Pt will be discharged to [facility] on Wednesday
--- NOTE | 2018-03-19 15:59 | RAD ---
HISTORY: Follow-up pneumonia COMPARISONS: March 15, 2015 VIEWS: 4: Frontal dual-energy and lateral views of the chest. FINDINGS: CARDIOMEDIASTINAL SILHOUETTE: The cardiomediastinal silhouette is normal. RONNIE: The ronnie are normal. PLEURA: The costophrenic angles are sharp. No pleural abnormalities are noted. LUNG PARENCHYMA: There is persistent confluent alveolar opacification of the right midlung field. This is similar to the previous examination. ABDOMEN: The upper abdomen is clear. There is no subphrenic gas. BONES AND SOFT TISSUES: No bone or soft tissue abnormalities are noted. OTHER: A right-sided PICC line is noted with the tip overlying the superior vena cava. IMPRESSION: PERSISTENT AIRSPACE DISEASE OF THE RIGHT MIDLUNG. LINES AND TUBES ABOVE.
[2018-03-19] MEDS: Benzocaine/Menthol LOZ* 1 LOZENGE PO PRN (16:23)
[2018-03-19] MEDS: Albuterol 2.5 MG/3 ML NEB.SOL* (0.083%) INH SCH (20:57)
[2018-03-19] MEDS: QUEtiapine TAB* 25 MG PO SCH (21:39)
[2018-03-19] MEDS: Gabapentin CAP(*) 400 MG PO SCH (21:39)
[2018-03-20] MEDS: Heparin VIAL(*) 5000 UNITS/ML VIAL (FIVE THOUSAND) SUBCUT SCH ×3 (05:16→21:15)
[2018-03-20] MEDS: Benzocaine/Menthol LOZ* 1 LOZENGE PO PRN ×2 (05:24→23:07)
[2018-03-20] MEDS: Albuterol 2.5 MG/3 ML NEB.SOL* (0.083%) INH SCH ×2 (07:10→20:09)
[2018-03-20] MEDS: Tiotropium CAP.INH* CAP.INH/18 MCG (USE ORDER SET !) INH SCH (07:12)
[2018-03-20] MEDS: Insulin LISPRO* 1 UNITS UNIT SUBCUT SCH ×4 (07:49→21:13)
[2018-03-20] MEDS: FLUoxetine CAP* 20 MG PO SCH (08:11)
[2018-03-20] MEDS: Famotidine TAB* 20 MG PO SCH (08:11)
[2018-03-20] MEDS: Isosorbide Mononitrate ER TAB* 60 MG PO SCH (08:11)
[2018-03-20] MEDS: predniSONE TAB* 20 MG PO SCH (08:11)
[2018-03-20] MEDS: Spironolactone TAB* 25 MG PO SCH (08:11)
[2018-03-20] MEDS: amLODIPine TAB* 5 MG PO SCH (08:11)
[2018-03-20] MEDS: Aspirin EC TAB* 81 MG TAB.EC PO SCH (08:11)
[2018-03-20] MEDS: oxyCODONE/Acetamin 5/325 MG* TAB PO PRN ×2 (08:12→17:38)
[2018-03-20] MEDS: Gabapentin CAP(*) 400 MG PO SCH ×3 (08:12→21:11)
[2018-03-20] MEDS: Nicotine PATCH 14 MG/24 HR* PATCH TRANSDERM SCH (08:14)
[2018-03-20] MEDS: Potassium & Sodium Phos 250MG* = 1 PACKET PO SCH ×3 (08:17→21:13)
[2018-03-20] MEDS: cefTRIAXone(*) 2 GM in NS 0.9% 100 ML* 100 ML IVPB SCH (10:55)
[2018-03-20] MEDS ORDERED: Furosemide IV* 10 MG/ML 2 ML VIAL (20 MG) IV ONE (13:31)
--- NOTE | 2018-03-20 13:35 | PN ---
Subjective Date of Service: 03/20/18 Interval History: Pt feels poorly. Doesn't understand why sh is still coughing and feels fatigued. Explained to pt that she suffered from respiratory failure and was on "life support". She was informed that it will take weeks till she recovers fully. Objective Active Medications: Acetaminophen (Tylenol Adult Liq*) 650 mg PO Q4H PRN PRN Reason: FEVER/PAIN Last Admin: 03/17/18 04:29 Dose: 650 mg Al Hydrox/Mg Hydrox/Simethicone (Maalox Plus*) 30 ml PO Q6H PRN PRN Reason: INDIGESTION Albuterol (Ventolin 2.5 Mg/3 Ml Neb.Flakita*) 2.5 mg INH BID [facility] Last Admin: 03/20/18 07:10 Dose: 2.5 mg Albuterol (Ventolin Hfa Inhaler*) 1 puff INH Q4H PRN PRN Reason: SOB/WHEEZING Alprazolam (Xanax Tab*) 0.5 mg PO DAILY PRN PRN Reason: ANXIETY Last Admin: 03/19/18 21:46 Dose: 0.5 mg Amlodipine Besylate (Norvasc Tab*) 10 mg PO DAILY [facility] Last Admin: 03/20/18 08:11 Dose: 10 mg Aspirin (Aspirin Ec Tab*) 81 mg PO DAILY [facility] Last Admin: 03/20/18 08:11 Dose: 81 mg Device (Nicotine Mouth Piece*) 1 each INH .USE WITH NICOTROL PRN PRN Reason: CRAVING Device (Tiotropium Inhaler Device*) 1 each INH .USE w/ SPIRIVA CAPS [facility] Last Admin: 03/20/18 07:12 Dose: 1 each Dextrose (D50w Syringe 50 Ml*) 12.5 gm IV PUSH .FOR FS < 60 - SS PRN PRN Reason: FS < 60 Docusate Sodium (Colace Cap*) 100 mg PO BID PRN PRN Reason: CONSTIPATION Famotidine (Pepcid Tab*) 20 mg PO DAILY [facility] Last Admin: 03/20/18 08:11 Dose: 20 mg Fluoxetine HCl (Prozac Cap*) 60 mg PO QAM [facility] Last Admin: 03/20/18 08:11 Dose: 60 mg Furosemide (Lasix Iv*) 20 mg IV ONCE ONE Stop: 03/20/18 13:32 Gabapentin (Neurontin Cap(*)) 400 mg PO TID [facility] Last Admin: 03/20/18 08:12 Dose: 400 mg Heparin Sodium (Porcine) (Heparin Vial(*)) 5,000 units SUBCUT Q8HR [facility] Last Admin: 03/20/18 05:16 Dose: 5,000 units Heparin Sodium (Porcine) (Heparin Flush Picc/Ml/Cvc(*)) 1 ml FLUSH 0600,1800 [facility] PRN Reason: Protocol Last Admin: 03/20/18 05:17 Dose: 1 ml Ceftriaxone Sodium 2 gm/ (Sodium Chloride) 100 mls @ 400 mls/hr IVPB 1100 [facility] Stop: 04/18/18 10:59 Last Admin: 03/20/18 10:55 Dose: 400 mls/hr Insulin Human Lispro (Humalog*) 0 units SUBCUT ACHS [facility] PRN Reason: Protocol Last Admin: 03/20/18 12:24 Dose: 12 units Isosorbide Mononitrate (Imdur Er Tab*) 60 mg PO DAILY [facility] Last Admin: 03/20/18 08:11 Dose: 60 mg Nicotine (Nicotine Patch 14 Mg/24 Hr*) 1 patch TRANSDERM DAILY [facility] Last Admin: 03/20/18 08:14 Dose: 1 patch Ondansetron HCl (Zofran Inj*) 4 mg IV Q4H PRN PRN Reason: NAUSEA/VOMITING Last Admin: 03/09/18 11:57 Dose: 4 mg Oxycodone/Acetaminophen (Percocet 5/325 Tab*) 1 tab PO Q6H PRN PRN Reason: PAIN Last Admin: 03/20/18 08:12 Dose: 1 tab Pharmacy Profile Note (Nicotine Patch Removal Note*) 1 note PATCH OFF 2200 [facility] Last Admin: 03/19/18 22:13 Dose: 1 note Potassium Phos/Sodium Phos (Neutra Phos 250 Mg Chay*) 250 mg PO TID [facility] Last Admin: 03/20/18 08:17 Dose: Not Given Prednisone (Deltasone Tab*) 20 mg PO DAILY [facility] Last Admin: 03/20/18 08:11 Dose: 20 mg Prochlorperazine Edisylate (Compazine Inj*) 5 mg IV Q6H PRN PRN Reason: NAUSEA/VOMITING Last Admin: 03/16/18 12:24 Dose: 5 mg Quetiapine Fumarate (Seroquel Tab*) 50 mg PO BEDTIME [facility] Last Admin: 03/19/18 21:39 Dose: 50 mg Senna (Senokot Tab*) 1 tab PO BID PRN PRN Reason: CONSTIPATION Last Admin: 03/10/18 21:01 Dose: 1 tab Spironolactone (Aldactone Tab*) 25 mg PO DAILY [facility] Last Admin: 03/20/18 08:11 Dose: 25 mg Throat Lozenges (Chloraseptic Faustina*) 1 faustina PO Q6H PRN PRN Reason: SORE THROAT Last Admin: 03/20/18 05:24 Dose: 1 faustina Tiotropium [place] (Spiriva Cap.Inh*) 1 cap INH DAILY [facility] Last Admin: 03/20/18 07:12 Dose: 1 cap Vital Signs - 8 hr 03/20/18 03/20/18 03/20/18 06:11 07:14 07:56 Temperature 97.8 F Pulse Rate 72 90 Respiratory 24 14 21 Rate Blood Pressure 100/63 (mmHg) O2 Sat by Pulse 99 95 Oximetry 03/20/18 03/20/18 03/20/18 08:00 08:12 10:07 Temperature Pulse Rate Respiratory 16 16 18 Rate Blood Pressure (mmHg) O2 Sat by Pulse 95 Oximetry Oxygen Devices in Use Now: Nasal Cannula Appearance: 62 yo f in nAD, aAOx3 Eyes: No Scleral Icterus, PERRLA Ears/Nose/Mouth/Throat: NL Teeth, Lips, Gums, Mucous Membranes Moist Neck: NL Appearance and Movements; NL JVP, Trachea Midline Respiratory: Symmetrical Chest Expansion and Respiratory Effort, - - RML rhonchi Cardiovascular: NL Sounds; No Murmurs; No JVD, RRR Abdominal: NL Sounds; No Tenderness; No Distention, No Hepatosplenomegaly Lymphatic: No Cervical Adenopathy Extremities: No Edema, No Clubbing, Cyanosis Skin: No Rash or Ulcers, No Nodules or Sclerosis Neurological: Alert and Oriented x 3, NL Muscle Strength and Tone Result Diagrams: 03/19/18 06:45 03/19/18 06:45 Additional Lab and Data: Lab Results 03/08/18 03/08/18 03/08/18 Range/Units 18:33 18:34 18:34 WBC 13.7 H (3.5-10.8) 10^3/ul RBC 4.59 (4.0-5.4) 10^6/ul Hgb 13.6 (12.0-16.0) g/dl Hct 39 (35-47) % MCV 86 (80-97) fL MCH 30 (27-31) pg MCHC 34 (31-36) g/dl RDW 15 (10.5-15) % Plt Count 246 (150-450) 10^3/ul MPV 7.8 (7.4-10.4) um3 Neut % (Auto) Not Reportable Lymph % (Auto) Not Reportable [place] % (Auto) Not Reportable Eos % (Auto) Not Reportable Baso % (Auto) Not Reportable Absolute Neuts (auto) Not Reportable Absolute Lymphs (auto) Not Reportable Absolute Monos (auto) Not Reportable Absolute Eos (auto) Not Reportable Absolute Basos (auto) Not Reportable Absolute Nucleated RBC Not Reportable Immature Gran % 6 (0-9) % Neutrophils % 79 (38-83) % Band Neutrophils % 6 (0-8) % Lymphocytes % 8 L (25-47) % Monocytes % 7 (0-7) % Eosinophils % 0 (0-6) % Basophils % 0 (0-2) % Nucleated RBC % Not Reportable Abs Neuts (Manual) 10.8 H (1.5-7.7) 10^3/ul Abs Lymphs (Manual) 1.1 (1.0-4.8) 10^3/ul Abs Monocytes (Manual) 1.0 H (0-0.8) 10^3/ul Absolute Eos (Manual) 0 (0-0.6) 10^3/ul Abs Basophils (Manual) 0 (0-0.2) 10^3/ul Large Platelets Present Normal RBC Morphology Normal (Normal) INR (Anticoag Therapy) 1.18 H (0.77-1.02) D-Dimer, Quantitative 911 H (Less Than 230) ng/mL VBG pH (7.33-7.43) VBG pCO2 (41-51) mmHg VBG pO2 (35-45) mmHg VBG HCO3 (24-28) mmol/L VBG O2 Saturation (70-80) % VBG Base Excess (0-4) Sodium 136 L (139-145) mmol/L Potassium 3.1 L (3.5-5.0) mmol/L Chloride 102 (101-111) mmol/L Carbon Dioxide 24 (22-32) mmol/L Anion Gap 10 (2-11) mmol/L BUN 12 (6-24) mg/dL Creatinine 0.80 (0.51-0.95) mg/dL Est GFR ( Amer) 93.8 (>60) Est GFR (Non-Af Amer) 72.9 (>60) BUN/Creatinine Ratio 15.0 (8-20) Glucose 92 (70-100) mg/dL Lactic Acid (0.5-2.0) mmol/L Calcium 8.4 L (8.6-10.3) mg/dL Magnesium 1.0 L (1.9-2.7) mg/dL Total Bilirubin 1.30 H (0.2-1.0) mg/dL AST 12 L (13-39) U/L ALT 9 (7-52) U/L Alkaline Phosphatase 85 (34-104) U/L Total Creatine Kinase 86 (10-223) U/L Troponin I 0.00 (<0.04) ng/mL C-Reactive Protein 108.11 H (< 5.00) mg/L B-Natriuretic Peptide ( - 100) pg/mL Total Protein 6.6 (6.4-8.9) g/dL Albumin 3.3 (3.2-5.2) g/dL Globulin 3.3 (2-4) g/dL Albumin/Globulin Ratio 1.0 (1-3) 03/08/18 03/08/18 03/08/18 Range/Units 18:34 18:34 18:52 WBC (3.5-10.8) 10^3/ul RBC (4.0-5.4) 10^6/ul Hgb (12.0-16.0) g/dl Hct (35-47) % MCV (80-97) fL MCH (27-31) pg MCHC (31-36) g/dl RDW (10.5-15) % Plt Count (150-450) 10^3/ul MPV (7.4-10.4) um3 Neut % (Auto) Lymph % (Auto) [place] % (Auto) Eos % (Auto) Baso % (Auto) Absolute Neuts (auto) Absolute Lymphs (auto) Absolute Monos (auto) Absolute Eos (auto) Absolute Basos (auto) Absolute Nucleated RBC Immature Gran % (0-9) % Neutrophils % (38-83) % Band Neutrophils % (0-8) % Lymphocytes % (25-47) % Monocytes % (0-7) % Eosinophils % (0-6) % Basophils % (0-2) % Nucleated RBC % Abs Neuts (Manual) (1.5-7.7) 10^3/ul Abs Lymphs (Manual) (1.0-4.8) 10^3/ul Abs Monocytes (Manual) (0-0.8) 10^3/ul Absolute Eos (Manual) (0-0.6) 10^3/ul Abs Basophils (Manual) (0-0.2) 10^3/ul Large Platelets Normal RBC Morphology (Normal) INR (Anticoag Therapy) (0.77-1.02) D-Dimer, Quantitative (Less Than 230) ng/mL VBG pH (7.33-7.43) VBG pCO2 (41-51) mmHg VBG pO2 (35-45) mmHg VBG HCO3 (24-28) mmol/L VBG O2 Saturation (70-80) % VBG Base Excess (0-4) Sodium (139-145) mmol/L Potassium (3.5-5.0) mmol/L Chloride (101-111) mmol/L Carbon Dioxide (22-32) mmol/L Anion Gap (2-11) mmol/L BUN (6-24) mg/dL Creatinine (0.51-0.95) mg/dL Est GFR ( Amer) (>60) Est GFR (Non-Af Amer) (>60) BUN/Creatinine Ratio (8-20) Glucose (70-100) mg/dL Lactic Acid 1.7 1.9 (0.5-2.0) mmol/L Calcium (8.6-10.3) mg/dL Magnesium (1.9-2.7) mg/dL Total Bilirubin (0.2-1.0) mg/dL AST (13-39) U/L ALT (7-52) U/L Alkaline Phosphatase (34-104) U/L Total Creatine Kinase (10-223) U/L Troponin I (<0.04) ng/mL C-Reactive Protein (< 5.00) mg/L B-Natriuretic Peptide 173 H ( - 100) pg/mL Total Protein (6.4-8.9) g/dL Albumin (3.2-5.2) g/dL Globulin (2-4) g/dL Albumin/Globulin Ratio (1-3) 03/08/18 Range/Units 19:29 WBC (3.5-10.8) 10^3/ul RBC (4.0-5.4) 10^6/ul Hgb (12.0-16.0) g/dl Hct (35-47) % MCV (80-97) fL MCH (27-31) pg MCHC (31-36) g/dl RDW (10.5-15) % Plt Count (150-450) 10^3/ul MPV (7.4-10.4) um3 Neut % (Auto) Lymph % (Auto) [place] % (Auto) Eos % (Auto) Baso % (Auto) Absolute Neuts (auto) Absolute Lymphs (auto) Absolute Monos (auto) Absolute Eos (auto) Absolute Basos (auto) Absolute Nucleated RBC Immature Gran % (0-9) % Neutrophils % (38-83) % Band Neutrophils % (0-8) % Lymphocytes % (25-47) % Monocytes % (0-7) % Eosinophils % (0-6) % Basophils % (0-2) % Nucleated RBC % Abs Neuts (Manual) (1.5-7.7) 10^3/ul Abs Lymphs (Manual) (1.0-4.8) 10^3/ul Abs Monocytes (Manual) (0-0.8) 10^3/ul Absolute Eos (Manual) (0-0.6) 10^3/ul Abs Basophils (Manual) (0-0.2) 10^3/ul Large Platelets Normal RBC Morphology (Normal) INR (Anticoag Therapy) (0.77-1.02) D-Dimer, Quantitative (Less Than 230) ng/mL VBG pH 7.37 (7.33-7.43) VBG pCO2 47 (41-51) mmHg VBG pO2 12 L (35-45) mmHg VBG HCO3 23.6 L (24-28) mmol/L VBG O2 Saturation 18.5 L (70-80) % VBG Base Excess 1.2 (0-4) Sodium (139-145) mmol/L Potassium (3.5-5.0) mmol/L Chloride (101-111) mmol/L Carbon Dioxide (22-32) mmol/L Anion Gap (2-11) mmol/L BUN (6-24) mg/dL Creatinine (0.51-0.95) mg/dL Est GFR ( Amer) (>60) Est GFR (Non-Af Amer) (>60) BUN/Creatinine Ratio (8-20) Glucose (70-100) mg/dL Lactic Acid (0.5-2.0) mmol/L Calcium (8.6-10.3) mg/dL Magnesium (1.9-2.7) mg/dL Total Bilirubin (0.2-1.0) mg/dL AST (13-39) U/L ALT (7-52) U/L Alkaline Phosphatase (34-104) U/L Total Creatine Kinase (10-223) U/L Troponin I (<0.04) ng/mL C-Reactive Protein (< 5.00) mg/L B-Natriuretic Peptide ( - 100) pg/mL Total Protein (6.4-8.9) g/dL Albumin (3.2-5.2) g/dL Globulin (2-4) g/dL Albumin/Globulin Ratio (1-3) Microbiology and Other Data: Microbiology 03/12/18 10:40 Gram Stain - Final Sputum Sputum Culture - Final YEAST 03/13/18 08:30 Urine Culture - Final Urine No Growth (<1,000 CFU/mL) 03/09/18 17:57 Legionella Urinary Antigen - Final Urine Negative Legionella Antigen Streptococcus pneumoniae Ag Screen - Final Negative S. pneumo Antigen 03/09/18 01:05 Nasal Screen MRSA (PCR)(TRAMAINE) - Final Nasal Mrsa Not Detected Assess/Plan/Problems-Billing Assessment: Ms. Cummings is a 62 yo F who has a h/o COPD, past bowel resection for bowel ischemia in 2011, CVA with residual r sided weakness, presented with SOB, PNA(suspected aspiration), H. influenzae bacteremia/sepsis - Patient Problems (1) Bacteremia Comment: H. influenzae bacteremia and acute bacterial endocarditis- aortic vave vegetation,at 0.8 cm. d/w ID , pt will need 6 weeks of IV Ceftriaxone 2 grams Q24H. PICC line in place (2) Aspiration pneumonia Comment: with acute hypoxemic respiratory failure requiring intubation( extubated on 03/14/18) and severe sepsis due to it Will need 02 at discharge. Pt Continues to c/o cough and feeling poorly. F/u CXR unchanged. Will tx with a dose of IV lasix for hypervolemia (3) COPD exacerbation Comment: cont Prednisone 20 mg daily (tapered down on 03/18/18) (4) HTN (hypertension) Comment: cont amlodipine and aldactone controlled (5) Hyperglycemia Comment: may be steroid induced. HbA1C 6.3-pt has h/o impaired glucose tolerance. cont ISS DM nutrition education ordered (6) Chronic lower back pain Comment: gabapentin increased from 300 to 400 mg TID. cont Percocet prn. Pt had a steroid injection to lower back days porior to admission. (7) KARLI (obstructive sleep apnea) Comment: cont nightly CPAP (8) DVT prophylaxis Comment: - SQ heparin. Status and Disposition: inpatient. Pt will be discharged to [facility] on Wednesday
[2018-03-20] MEDS ORDERED: Nitroglycerin TAB 0.4 MG* 0.4 MG TAB SL ONE (18:56)
[2018-03-20] MEDS ORDERED: Nitroglycerin TAB 0.4 MG* 0.4 MG TAB ONE (19:00)
[2018-03-20] MEDS: QUEtiapine TAB* 25 MG PO SCH (21:11)
[2018-03-20] MEDS: ALPRAZolam TAB* 0.5 MG PO PRN (21:22)
[2018-03-20] MEDS: Nicotine Patch Removal NOTE PATCH OFF SCH (23:07)
[2018-03-21] MEDS: Heparin VIAL(*) 5000 UNITS/ML VIAL (FIVE THOUSAND) SUBCUT SCH ×3 (04:46→21:15)
[2018-03-21 05:03] LABS: ABS Basophils 0.1 10^3/ul (0-0.2); ABS Eosinophils 0.3 10^3/ul (0-0.6); ABS Lymphocytes 1.7 10^3/ul (1.0-4.8); ABS Monocytes 0.8 10^3/ul (0-0.8); ABS Neutrophils 7.1 10^3/ul (1.5-7.7); ABS Nucleated RBC 0 10^3/ul; Eosinophil % 3.5 % (0-6); Hematocrit 35 % (35-47); Hemoglobin 11.4 g/dl (12.0-16.0); Lymphocyte % 16.7 % (25-47); Mean Corpuscular HGB Conc 33 g/dl (31-36); Mean Corpuscular Hemoglobin 29 pg (27-31); Mean Corpuscular Volume 88 fL (80-97); Mean Platelet Volume 7.4 um3 (7.4-10.4); Nucleated Red Blood Cells % 0; Platelet Count 316 10^3/ul (150-450); Red Blood Count 3.96 10^6/ul (4.0-5.4); Red Cell Distribution Width 15 % (10.5-15); White Blood Count 9.9 10^3/ul (3.5-10.8)
[2018-03-21 05:08] LABS: EGFR Non-African American 85.1 (>60)
[2018-03-21] MEDS: Insulin LISPRO* 1 UNITS UNIT SUBCUT SCH ×4 (08:11→21:14)
[2018-03-21] MEDS: Nicotine PATCH 14 MG/24 HR* PATCH TRANSDERM SCH (08:56)
[2018-03-21] MEDS: Spironolactone TAB* 25 MG PO SCH (08:57)
[2018-03-21] MEDS: FLUoxetine CAP* 20 MG PO SCH (08:57)
[2018-03-21] MEDS: Famotidine TAB* 20 MG PO SCH (08:57)
[2018-03-21] MEDS: Isosorbide Mononitrate ER TAB* 60 MG PO SCH (08:57)
[2018-03-21] MEDS: Gabapentin CAP(*) 400 MG PO SCH ×3 (08:57→21:14)
[2018-03-21] MEDS: amLODIPine TAB* 5 MG PO SCH (08:57)
[2018-03-21] MEDS: Aspirin EC TAB* 81 MG TAB.EC PO SCH (08:57)
[2018-03-21] MEDS: predniSONE TAB* 20 MG PO SCH (08:57)
[2018-03-21] MEDS: Potassium & Sodium Phos 250MG* = 1 PACKET PO SCH ×3 (08:58→21:15)
[2018-03-21] MEDS: oxyCODONE/Acetamin 5/325 MG* TAB PO PRN ×2 (08:58→15:02)
[2018-03-21] MEDS: Albuterol 2.5 MG/3 ML NEB.SOL* (0.083%) INH SCH ×2 (09:54→20:46)
[2018-03-21] MEDS: Tiotropium CAP.INH* CAP.INH/18 MCG (USE ORDER SET !) INH SCH (09:56)
[2018-03-21] MEDS: cefTRIAXone(*) 2 GM in NS 0.9% 100 ML* 100 ML IVPB SCH (11:48)
[2018-03-21] MEDS: QUEtiapine TAB* 25 MG PO SCH (21:12)
[2018-03-21] MEDS: ALPRAZolam TAB* 0.5 MG PO PRN (21:13)
[2018-03-21] MEDS: Nicotine Patch Removal NOTE PATCH OFF SCH (21:18)
[2018-03-21] MEDS: Benzocaine/Menthol LOZ* 1 LOZENGE PO PRN (22:44)
[2018-03-21] MEDS ORDERED: Nitroglycerin TAB 0.4 MG* 0.4 MG TAB SL ONE (23:33)
--- NOTE | 2018-03-21 23:34 | PN ---
Progress Note - Progress Note Date of Service: 03/21/18 Note: Patient with atypical right sided chest pain. Had similar episode last night that was unremarkable. Will give Nitro SL nad check EKG
--- NOTE | 2018-03-21 23:52 | PN ---
Progress Note - Progress Note Date of Service: 03/21/18 Note: No change in EKG
[2018-03-22] MEDS: Heparin VIAL(*) 5000 UNITS/ML VIAL (FIVE THOUSAND) SUBCUT SCH ×3 (05:50→21:10)
[2018-03-22] MEDS: Insulin LISPRO* 1 UNITS UNIT SUBCUT SCH ×4 (07:39→20:30)
[2018-03-22] MEDS: Gabapentin CAP(*) 400 MG PO SCH ×3 (08:36→21:09)
[2018-03-22] MEDS: Isosorbide Mononitrate ER TAB* 60 MG PO SCH (08:36)
[2018-03-22] MEDS: FLUoxetine CAP* 20 MG PO SCH (08:37)
[2018-03-22] MEDS: Spironolactone TAB* 25 MG PO SCH (08:37)
[2018-03-22] MEDS: Aspirin EC TAB* 81 MG TAB.EC PO SCH (08:37)
[2018-03-22] MEDS: Famotidine TAB* 20 MG PO SCH (08:38)
[2018-03-22] MEDS: oxyCODONE/Acetamin 5/325 MG* TAB PO PRN (08:38)
[2018-03-22] MEDS: Nicotine PATCH 14 MG/24 HR* PATCH TRANSDERM SCH (08:38)
[2018-03-22] MEDS: predniSONE TAB* 20 MG PO SCH (08:38)
[2018-03-22] MEDS: Potassium & Sodium Phos 250MG* = 1 PACKET PO SCH ×3 (08:39→21:10)
[2018-03-22] MEDS: amLODIPine TAB* 5 MG PO SCH (08:39)
[2018-03-22] MEDS: Tiotropium CAP.INH* CAP.INH/18 MCG (USE ORDER SET !) INH SCH (08:55)
[2018-03-22] MEDS: Albuterol 2.5 MG/3 ML NEB.SOL* (0.083%) INH SCH ×2 (08:55→19:53)
[2018-03-22] MEDS: cefTRIAXone(*) 2 GM in NS 0.9% 100 ML* 100 ML IVPB SCH (10:43)
--- NOTE | 2018-03-22 12:14 | DS ---
CC: Dr. Montanez; Dr. Guevara; [facility]. * DISCHARGE SUMMARY: DATE OF ADMISSION: 03/08/18 DATE OF DISCHARGE / PLAN TO TRANSFER TO [facility]: 03/22/18 DATE OF DICTATION: 03/21/18 PRIMARY CARE PROVIDER: Dr. Montanez. DISCHARGE DIAGNOSES: 1. Haemophilus influenzae acute aortic valve endocarditis, likely due to Haemophilus influenzae bacteremia and pneumonia. 2. Acute hypoxemic respiratory failure requiring ventilatory support due to aspiration pneumonia with blood cultures positive for Haemophilus influenzae. SECONDARY DIAGNOSES: 1. History of obstructive sleep apnea, on CPAP. 2. The patient is being discharged on oxygen at 3 to 4 L continuously, which is new for the patient. 3. History of CVA with residual right-sided weakness. 4. History of chronic lower back pain with history of steroid epidural injections in the past. 5. Impaired glucose tolerance with hyperglycemia, likely steroid induced during her hospital stay. 6. Hypertension. 7. History of lupus. 8. History of fibromyalgia. 9. History of Crohn's and small bowel resection secondary to necrosis in the past. 10. History of tobacco use. 11. History of anxiety. 12. Depression. MEDICATIONS AT DISCHARGE: Include: 1. The patient is discharged on ceftriaxone 2 g IV every 24 hours. On the day of discharge, the patient is on day 4 out of 42 of her ceftriaxone treatment. 2. Heparin flushes as per protocol. 3. Albuterol nebulizer on a p.r.n. basis. 4. Albuterol inhaler 2 puffs every 4 hours p.r.n. 5. Xanax 0.5 mg daily p.r.n. 6. Norvasc 10 mg daily. 7. Aspirin 81 mg daily. 8. Tessalon Perles 200 mg t.i.d. p.r.n. 9. Colace 100 mg b.i.d. 10. Prozac 60 mg daily. 11. Gabapentin 400 mg 3 times a day. 12. Insulin lispro sliding scale. I suspect that after the patient's steroid tapered down to off, she may not require insulin sliding scale. 13. Imdur 60 mg daily. 14. Dulera 200/5 2 puffs inhalation b.i.d. 15. Percocet 1 tablet every 5/325 mg 1 tablet every 6 hours p.r.n. 16. Prednisone 20 mg daily for 2 days and 10 mg daily for 2 days, then stop. 17. Seroquel 50 mg daily. 18. Aldactone 25 mg daily. 19. Spiriva 1 inhalation daily. The patient is to use CPAP nightly as tolerated. The patient used to use oxygen continuously at 3 to 4 L. PICC care and flushes as per protocol. Weekly CBC, CRP and a CMP is recommended with reports to be sent to Dr. Guevara while the patient is on IV antibiotics. LABORATORY DATA AND STUDIES PERFORMED DURING THE HOSPITAL STAY: On 03/21/18, white blood cell count of 9.9, hemoglobin of 11.4, hematocrit of 35, and platelets were 316. Sodium was 134, potassium 4.0, chloride 101, carbon dioxide 29, BUN 11, creatinine 0.7. Hemoglobin A1c was noted to be 6.3. Troponin ranged from 0.01 to 0. Serum protein electrophoresis was obtained on 03/17/18 with impression of no apparent monoclonal protein on serum electrophoresis. C-reactive protein was 108 on admission and 7.3 on 03/19/18. Microbiology tests, blood cultures were positive x4 for Haemophilus influenzae at admission. Urine cultures showed no growth. Transesophageal echocardiogram obtained on 03/18/18, conclusion: "There is normal left ventricular systolic function with EF of 55% to 60%. Normal cardiac chamber sizes. An echodense vegetation measuring 0.7 cm x 0.8 cm visualized on the noncoronary cusp of the aortic valve. Since the prior transthoracic echocardiogram completed on 03/16/18, aortic valve vegetation is now described, which is likely related to the inherent increased sensitivity of transesophageal echocardiographic detection of intracardiac vegetation as compared to transthoracic echocardiographic imaging". Portable chest x-ray obtained on 03/19/18, impression: "Persistent air space disease in the right mid lung". CT angiogram of the chest obtained on 03/08/18, impression: "Right upper lobe pneumonia. Radiographic follow up after therapy warranted to assess the resolution. Partial atelectasis of the right middle and right lower lobes. Negative for pulmonary embolism. Probable reactive upper normal mediastinal and hilar lymph nodes. Probable pulmonary arterial hypertension." CONSULTATIONS DURING THE HOSPITAL STAY: Included Dr. Shrestha and Dr. Naidu as brush finisher and Dr. Guevara from Infectious Diseases. HOSPITALIZATION COURSE: Mrs. Cummings is a 62-year-old female with history of COPD, was not oxygen dependent prior to her hospital stay. The patient has a history of chronic right-sided weakness due to old CVA. She presented to the hospital on 03/18/18 with complaints of shortness of breath. During patient's hospital stay, she did have acute respiratory failure and needed to be intubated and placed on a ventilator. She was liberated from ventilator on . Afterward, she was noted to be delirious, encephalopathic likely due to ICU and post respiratory failure condition. The patient was treated with IV antibiotics due to her blood cultures initially showing Haemophilus influenzae. Once the patient was transferred to the medical floor, she was consulted by Dr. Guevara from Infectious Diseases, who recommended BECCA. BECCA was performed on 03/18/18 and noted 0.7 x 0.8 cm vegetation of the aortic valve. At that point, the patient's ceftriaxone dose was increased to 2 g every 24 hours. By the time of discharge, the patient is going to be 4 days into her increased ceftriaxone dose and she is requiring a total of 42 doses. At discharge, she is going to be requiring another 38 doses. During that time, lab work as above mentioned is recommended with report to be sent to Dr. Guevara. The patient is also to follow up with Dr. Guevara in 2 to 4 weeks. During patient's hospital stay, the patient was using CPAP at night, although occasionally, she was noncompliant. This is recommended for the patient to continue CPAP at intermediate. The patient has acute hypoxemic respiratory failure requiring mechanical ventilation, resolved, although she continues to be hypoxemic and she is going to be discharged on 3 to 4 L of oxygen continuously. She is going to be discharged with PICC line in place for IV antibiotic infusion as mentioned above. The patient has had problems with lower back pain. The patient's gabapentin was increased from 300 mg 3 times a day as she previously took at home to 400 mg 3 times a day. Nevertheless, she continued to have problems with back pain and Percocet was prescribed. Previously, she used Tylenol with Codeine as per Dr. Arias's service. Please note that on the day prior to discharge, she had no point tenderness in the lower back and her pain had been unchanged for several weeks now. Due to her ICU stay, the patient was markedly deconditioned. She required physical therapy evaluation that deemed patient a good candidate for short-term rehabilitation. The patient is going to be discharged on 03/22/18 to [facility]. PHYSICAL EXAM AT THE TIME OF DISCHARGE: Includes blood pressure of 103/66, heart rate of 84 and regular, respiratory rate of 17, oxygen saturation 97% on 3 L of oxygen on nasal cannula, temperature 97.7. General: The patient is a very pleasant 62-year-old obese female who is in no acute distress, alert, awake and oriented x3. HEENT: Head atraumatic, normocephalic. Eyes: Pupils are equal and reactive to light and accommodation. Oropharynx clear. Mucosa moist. Neck: Supple. No JVD. No bruits bilaterally. Cardiovascular: Regular rate and rhythm. No murmur. Respiratory: Crackles in right middle lobe , otherwise clear. Abdomen: Soft, nontender. Bowel sounds present in all 4 quadrants. Extremities: There is trace bilateral pedal edema. Peripheral pulses +2 bilaterally. No clubbing or cyanosis. On neuro evaluation, the patient is noted to have mild right-sided weakness at 4+/5 in right lower and right upper extremity. The patient's speech is clear. Sensation is grossly intact. Please note that this is a short summary of the patient's long and complicated hospitalization. Please refer to further medical records for details. Please also note that the patient developed hyperglycemia during her hospital stay, likely exacerbated by steroids as she was placed while in intensive care unit. Her steroids are going to be tapered with doses as above mentioned. I suspect, the patient will not require further insulin sliding scale if her steroids taper is completed and she adheres to a diabetic diet. TIME SPENT: Approximately 50 minutes was spent on the patient's discharge. [id number]/[facility] #: [id number] YOU
--- NOTE | 2018-03-22 14:33 | PN ---
<Mary Agustin - Last Filed: 03/22/18 14:48> Infectious Disease Note Date of Evaluation: 03/22/18 SOAP: Subjective: Date of Service: 03/22/18 Interval history: complains of left sided chest pain that is tender to palpation. Had EKG and Troponin done without acute ischemic change. Objective: Vital Signs Temp Pulse Resp BP Pulse Ox 36.3 C 82 16 105/65 99 03/22/18 07:46 03/22/18 08:56 03/22/18 12:47 03/22/18 07:46 03/22/18 08:56 Physical Exam: General: comfortable appearing, sitting up in chair with 2L NC HEENT: clear oropharynx, oral dentition notable for dentures, peerl, clear sclera Neck: no cervical adenopathy, no jvd Chest: left anterior chest wall with reproducible tenderness with palpation Heart: s1s2 audible, no g/m/r Lungs: ctab no w/r/r Abdomen: soft, normoactive b/s, Extremities: warm, no edema Neuro: a&o x3, no focal neurological deficits Inpatient Medications: Acetaminophen (Tylenol Adult Liq*) 650 mg PO Q4H PRN PRN Reason: FEVER/PAIN Last Admin: 03/17/18 04:29 Dose: 650 mg Al Hydrox/Mg Hydrox/Simethicone (Maalox Plus*) 30 ml PO Q6H PRN PRN Reason: INDIGESTION Albuterol (Ventolin 2.5 Mg/3 Ml Neb.Falkita*) 2.5 mg INH BID [facility] Last Admin: 03/22/18 08:55 Dose: 2.5 mg Albuterol (Ventolin Hfa Inhaler*) 1 puff INH Q4H PRN PRN Reason: SOB/WHEEZING Alprazolam (Xanax Tab*) 0.5 mg PO DAILY PRN PRN Reason: ANXIETY Last Admin: 03/21/18 21:13 Dose: 0.5 mg Amlodipine Besylate (Norvasc Tab*) 10 mg PO DAILY [facility] Last Admin: 03/22/18 08:39 Dose: Not Given Aspirin (Aspirin Ec Tab*) 81 mg PO DAILY [facility] Last Admin: 03/22/18 08:37 Dose: 81 mg Device (Nicotine Mouth Piece*) 1 each INH .USE WITH NICOTROL PRN PRN Reason: CRAVING Device (Tiotropium Inhaler Device*) 1 each INH .USE w/ SPIRIVA CAPS [facility] Last Admin: 03/20/18 07:12 Dose: 1 each Dextrose (D50w Syringe 50 Ml*) 12.5 gm IV PUSH .FOR FS < 60 - SS PRN PRN Reason: FS < 60 Docusate Sodium (Colace Cap*) 100 mg PO BID PRN PRN Reason: CONSTIPATION Famotidine (Pepcid Tab*) 20 mg PO DAILY [facility] Last Admin: 03/22/18 08:38 Dose: 20 mg Fluoxetine HCl (Prozac Cap*) 60 mg PO QAM [facility] Last Admin: 03/22/18 08:37 Dose: 60 mg Gabapentin (Neurontin Cap(*)) 400 mg PO TID [facility] Last Admin: 03/22/18 12:47 Dose: 400 mg Heparin Sodium (Porcine) (Heparin Vial(*)) 5,000 units SUBCUT Q8HR [facility] Last Admin: 03/22/18 12:47 Dose: 5,000 units Heparin Sodium (Porcine) (Heparin Flush Picc/Ml/Cvc(*)) 1 ml FLUSH 0600,1800 [facility] PRN Reason: Protocol Last Admin: 03/22/18 05:51 Dose: 3 ml Ceftriaxone Sodium 2 gm/ (Sodium Chloride) 100 mls @ 400 mls/hr IVPB 1100 [facility] Stop: 04/18/18 10:59 Last Admin: 03/22/18 10:43 Dose: 400 mls/hr Insulin Human Lispro (Humalog*) 0 units SUBCUT ACHS [facility] PRN Reason: Protocol Last Admin: 03/22/18 12:48 Dose: 3 units Isosorbide Mononitrate (Imdur Er Tab*) 60 mg PO DAILY [facility] Last Admin: 03/22/18 08:36 Dose: 60 mg Nicotine (Nicotine Patch 14 Mg/24 Hr*) 1 patch TRANSDERM DAILY [facility] Last Admin: 03/22/18 08:38 Dose: 1 patch Ondansetron HCl (Zofran Inj*) 4 mg IV Q4H PRN PRN Reason: NAUSEA/VOMITING Last Admin: 03/09/18 11:57 Dose: 4 mg Oxycodone/Acetaminophen (Percocet 5/325 Tab*) 1 tab PO Q6H PRN PRN Reason: PAIN Last Admin: 03/22/18 08:38 Dose: 1 tab Pharmacy Profile Note (Nicotine Patch Removal Note*) 1 note PATCH OFF 2200 [facility] Last Admin: 03/21/18 21:18 Dose: 1 note Potassium Phos/Sodium Phos (Neutra Phos 250 Mg Chay*) 250 mg PO TID [facility] Last Admin: 03/22/18 12:46 Dose: 250 mg Prednisone (Deltasone Tab*) 20 mg PO DAILY [facility] Last Admin: 03/22/18 08:38 Dose: 20 mg Prochlorperazine Edisylate (Compazine Inj*) 5 mg IV Q6H PRN PRN Reason: NAUSEA/VOMITING Last Admin: 03/16/18 12:24 Dose: 5 mg Quetiapine Fumarate (Seroquel Tab*) 50 mg PO BEDTIME [facility] Last Admin: 03/21/18 21:12 Dose: 50 mg Senna (Senokot Tab*) 1 tab PO BID PRN PRN Reason: CONSTIPATION Last Admin: 03/10/18 21:01 Dose: 1 tab Spironolactone (Aldactone Tab*) 25 mg PO DAILY [facility] Last Admin: 03/22/18 08:37 Dose: 25 mg Throat Lozenges (Chloraseptic Faustina*) 1 faustina PO Q6H PRN PRN Reason: SORE THROAT Last Admin: 03/21/18 22:44 Dose: 1 faustina Tiotropium [place] (Spiriva Cap.Inh*) 1 cap INH DAILY [facility] Last Admin: 03/22/18 08:55 Dose: 1 cap Laboratory: Laboratory Last Values WBC 9.9 10^3/ul (3.5-10.8) 03/21/18 04:40 RBC 3.96 10^6/ul (4.0-5.4) L 03/21/18 04:40 Hgb 11.4 g/dl (12.0-16.0) L 03/21/18 04:40 Hct 35 % (35-47) 03/21/18 04:40 MCV 88 fL (80-97) 03/21/18 04:40 MCH 29 pg (27-31) 03/21/18 04:40 MCHC 33 g/dl (31-36) 03/21/18 04:40 RDW 15 % (10.5-15) 03/21/18 04:40 Plt Count 316 10^3/ul (150-450) 03/21/18 04:40 MPV 7.4 um3 (7.4-10.4) 03/21/18 04:40 Neut % (Auto) 71.2 % (38-83) 03/21/18 04:40 Lymph % (Auto) 16.7 % (25-47) L 03/21/18 04:40 [place] % (Auto) 7.8 % (0-7) H 03/21/18 04:40 Eos % (Auto) 3.5 % (0-6) 03/21/18 04:40 Baso % (Auto) 0.8 % (0-2) 03/21/18 04:40 Absolute Neuts (auto) 7.1 10^3/ul (1.5-7.7) 03/21/18 04:40 Absolute Lymphs (auto) 1.7 10^3/ul (1.0-4.8) 03/21/18 04:40 Absolute Monos (auto) 0.8 10^3/ul (0-0.8) 03/21/18 04:40 Absolute Eos (auto) 0.3 10^3/ul (0-0.6) 03/21/18 04:40 Absolute Basos (auto) 0.1 10^3/ul (0-0.2) 03/21/18 04:40 Absolute Nucleated RBC 0 10^3/ul 03/21/18 04:40 Immature Gran % 6 % (0-9) 03/08/18 18:34 Neutrophils % 79 % (38-83) 03/08/18 18:34 Band Neutrophils % 6 % (0-8) 03/08/18 18:34 Lymphocytes % 8 % (25-47) L 03/08/18 18:34 Monocytes % 7 % (0-7) 03/08/18 18:34 Eosinophils % 0 % (0-6) 03/08/18 18:34 Basophils % 0 % (0-2) 03/08/18 18:34 Nucleated RBC % 0 03/21/18 04:40 Abs Neuts (Manual) 10.8 10^3/ul (1.5-7.7) H 03/08/18 18:34 Abs Lymphs (Manual) 1.1 10^3/ul (1.0-4.8) 03/08/18 18:34 Abs Monocytes (Manual) 1.0 10^3/ul (0-0.8) H 03/08/18 18:34 Absolute Eos (Manual) 0 10^3/ul (0-0.6) 03/08/18 18:34 Abs Basophils (Manual) 0 10^3/ul (0-0.2) 03/08/18 18:34 Large Platelets Present 03/08/18 18:34 Normal RBC Morphology Normal (Normal) 03/08/18 18:34 INR (Anticoag Therapy) 1.18 (0.77-1.02) H 03/08/18 18:33 D-Dimer, Quantitative 911 ng/mL (Less Than 230) H 03/08/18 18:33 ABG pH 7.38 (7.35-7.45) 03/08/18 23:48 ABG pCO2 39 mmHg (35-45) 03/08/18 23:48 ABG pO2 272 mmHg (80-100) H 03/08/18 23:48 ABG HCO3 23.5 mmol/L (19-31) 03/08/18 23:48 ABG O2 Saturation 98.4 % (95-98) H 03/08/18 23:48 ABG Base Excess -1.8 (-2.0-2.0) 03/08/18 23:48 VBG pH 7.37 (7.33-7.43) 03/08/18 19:29 VBG pCO2 47 mmHg (41-51) 03/08/18 19:29 VBG pO2 12 mmHg (35-45) L 03/08/18 19:29 VBG HCO3 23.6 mmol/L (24-28) L 03/08/18 19:29 VBG O2 Saturation 18.5 % (70-80) L 03/08/18 19:29 VBG Base Excess 1.2 (0-4) 03/08/18 19:29 Sodium 134 mmol/L (139-145) L 03/21/18 04:40 Potassium 4.0 mmol/L (3.5-5.0) 03/21/18 04:40 Chloride 101 mmol/L (101-111) 03/21/18 04:40 Carbon Dioxide 29 mmol/L (22-32) 03/21/18 04:40 Anion Gap 4 mmol/L (2-11) 03/21/18 04:40 BUN 11 mg/dL (6-24) 03/21/18 04:40 Creatinine 0.70 mg/dL (0.51-0.95) 03/21/18 04:40 Est GFR ( Amer) 109.4 (>60) 03/21/18 04:40 Est GFR (Non-Af Amer) 85.1 (>60) 03/21/18 04:40 BUN/Creatinine Ratio 15.7 (8-20) 03/21/18 04:40 Glucose 134 mg/dL (70-100) H 03/21/18 04:40 POC Glucose (mg/dL) 174 mg/dL (70-100) H 03/22/18 11:30 Hemoglobin A1c 6.3 % (4.0-5.6) H 03/17/18 05:20 Lactic Acid 1.9 mmol/L (0.5-2.0) 03/08/18 18:52 Calcium 8.7 mg/dL (8.6-10.3) 03/21/18 04:40 Phosphorus 3.5 mg/dL (2.5-5.0) 03/19/18 06:45 Magnesium 1.6 mg/dL (1.9-2.7) L 03/13/18 14:45 Total Bilirubin 1.30 mg/dL (0.2-1.0) H 03/08/18 18:34 AST 12 U/L (13-39) L 03/08/18 18:34 ALT 9 U/L (7-52) 03/08/18 18:34 Alkaline Phosphatase 85 U/L (34-104) 03/08/18 18:34 Total Creatine Kinase 86 U/L (10-223) 03/08/18 18:34 Troponin I 0.01 ng/mL (<0.04) 03/21/18 04:40 C-Reactive Protein 7.34 mg/L (< 5.00) H 03/19/18 06:45 B-Natriuretic Peptide 173 pg/mL (-100) H 03/08/18 18:34 Total Protein 6.6 g/dL (6.4-8.9) 03/08/18 18:34 Total Protein (PEP) 5.1 g/dL (6.3 - 7.9) L 03/17/18 05:20 Albumin 3.3 g/dL (3.2-5.2) 03/08/18 18:34 Albumin (PEP) 2.3 g/dL (3.4-4.7) L 03/17/18 05:20 Globulin 3.3 g/dL (2-4) 03/08/18 18:34 Albumin/Globulin Ratio 1.0 (1-3) 03/08/18 18:34 Albumin/Globulin (PEP) 0.83 03/17/18 05:20 Mhbtc-0-Qfttlexku 0.3 g/dL (0.1-0.3) 03/17/18 05:20 Wttez-6-Jggkkdbtj 0.6 g/dL (0.6-1.0) 03/17/18 05:20 Hwsv-9-Ctzywtwx 0.8 g/dL (0.7-1.2) 03/17/18 05:20 Gamma Globulins 1.1 g/dL (0.6-1.6) 03/17/18 05:20 PEP Impression See comment 03/17/18 05:20 Urine Color Yellow 03/13/18 08:30 Urine Appearance Clear 03/13/18 08:30 Urine pH 5.0 (5-9) 03/13/18 08:30 Ur Specific [place] 1.033 (1.010-1.030) H 03/13/18 08:30 Urine Protein 1+(30 mg/dl) (Negative) A 03/13/18 08:30 Urine Ketones Negative (Negative) 03/13/18 08:30 Urine Blood 2+ (Negative) A 03/13/18 08:30 Urine Nitrate Negative (Negative) 03/13/18 08:30 Urine Bilirubin Negative (Negative) 03/13/18 08:30 Urine Urobilinogen Negative (Negative) 03/13/18 08:30 Ur Leukocyte Esterase Negative (Negative) 03/13/18 08:30 Urine WBC (Auto) Trace(0-5/hpf) (Absent) 03/13/18 08:30 Urine RBC (Auto) 3+(>10/hpf) (Absent) A 03/13/18 08:30 Ur Squamous Epith Cells Present (Absent) A 03/13/18 08:30 Urine Bacteria Absent (Absent) 03/13/18 08:30 Urine Glucose Negative (Negative) 03/13/18 08:30 Urine Ascorbic Acid * (Negative) A 03/13/18 08:30 HIV 1&2 Antibody Nonreactive (Nonreactive) 03/15/18 23:57 03/21/18 : troponin <0.04 03/20/18 : troponin <0.04 Microbiology: Microbiology 03/12/18 10:40 Gram Stain - Final Sputum Sputum Culture - Final YEAST 03/13/18 08:30 Urine Culture - Final Urine No Growth (<1,000 CFU/mL) 03/08/18 18:52 Aerobic Blood Culture - Final Blood Venous Haemophilus Influenzae Anaerobic Blood Culture - Final Haemophilus Influenzae 03/08/18 18:38 Aerobic Blood Culture - Final Blood Venous Haemophilus Influenzae Anaerobic Blood Culture - Final Haemophilus Influenzae 03/09/18 17:57 Legionella Urinary Antigen - Final Urine Negative Legionella Antigen Streptococcus pneumoniae Ag Screen - Final Negative S. pneumo Antigen 03/09/18 01:05 Nasal Screen MRSA (PCR)(TRAMAINE) - Final Nasal Mrsa Not Detected Imagin03/18/18 BECCA: an echo dense vegetation measuring 0.7cm x 0.8cm on the non- coronary cusp of the aortic valve. Assessment: 62 yo woman with significant history of COPD, Lupus, stroke presenting with shortness of breath found with RLL infiltrate and Haemophilus influenza bactermia likely pulmonary origin. 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 On IV Ceftriaxone. Plan: Haemophilius Influenza Endocarditis and Bactermia likely 2/2 RLL aspiration PNA -on ceftriaxone IV, total duration of 6 weeks -will have weekly outpatient CRP, CMP, CBC -upon completion of treatment will have a followup outpatient BECCA Discussed with attending Dr. Henry Guevara Pending co-sign and addendum Infectious Disease Consult Mary Agustin MD, PGY2 [facility] Resident <Ismael CALDERON,James Ramírez - Last Filed: 03/22/18 15:46> Infectious Disease Note SOAP: Seen, discussed and examined with Dr Ahuja, I agree with her full note above. 1. 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 Haemophilus pneumonia will need follow up CXR in 1 month
--- NOTE | 2018-03-22 17:44 | PN ---
Subjective Date of Service: 03/22/18 Interval History: Seen with family at bedside Eating dinner Reports SOB but walked around unit today with walker and O2 Reports she previously had pain under left breast that is now resolved. When asked why she appealed her discharge she reports "because I told them I needed another day." Objective Active Medications: Acetaminophen (Tylenol Adult Liq*) 650 mg PO Q4H PRN PRN Reason: FEVER/PAIN Last Admin: 03/17/18 04:29 Dose: 650 mg Al Hydrox/Mg Hydrox/Simethicone (Maalox Plus*) 30 ml PO Q6H PRN PRN Reason: INDIGESTION Albuterol (Ventolin 2.5 Mg/3 Ml Neb.Flakita*) 2.5 mg INH BID [facility] Last Admin: 03/22/18 08:55 Dose: 2.5 mg Albuterol (Ventolin Hfa Inhaler*) 1 puff INH Q4H PRN PRN Reason: SOB/WHEEZING Alprazolam (Xanax Tab*) 0.5 mg PO DAILY PRN PRN Reason: ANXIETY Last Admin: 03/21/18 21:13 Dose: 0.5 mg Amlodipine Besylate (Norvasc Tab*) 10 mg PO DAILY [facility] Last Admin: 03/22/18 08:39 Dose: Not Given Aspirin (Aspirin Ec Tab*) 81 mg PO DAILY [facility] Last Admin: 03/22/18 08:37 Dose: 81 mg Device (Nicotine Mouth Piece*) 1 each INH .USE WITH NICOTROL PRN PRN Reason: CRAVING Device (Tiotropium Inhaler Device*) 1 each INH .USE w/ SPIRIVA CAPS [facility] Last Admin: 03/20/18 07:12 Dose: 1 each Dextrose (D50w Syringe 50 Ml*) 12.5 gm IV PUSH .FOR FS < 60 - SS PRN PRN Reason: FS < 60 Docusate Sodium (Colace Cap*) 100 mg PO BID PRN PRN Reason: CONSTIPATION Famotidine (Pepcid Tab*) 20 mg PO DAILY [facility] Last Admin: 03/22/18 08:38 Dose: 20 mg Fluoxetine HCl (Prozac Cap*) 60 mg PO QAM [facility] Last Admin: 03/22/18 08:37 Dose: 60 mg Gabapentin (Neurontin Cap(*)) 400 mg PO TID [facility] Last Admin: 03/22/18 12:47 Dose: 400 mg Heparin Sodium (Porcine) (Heparin Vial(*)) 5,000 units SUBCUT Q8HR [facility] Last Admin: 03/22/18 12:47 Dose: 5,000 units Heparin Sodium (Porcine) (Heparin Flush Picc/Ml/Cvc(*)) 1 ml FLUSH 0600,1800 [facility] PRN Reason: Protocol Last Admin: 03/22/18 17:30 Dose: 3 ml Ceftriaxone Sodium 2 gm/ (Sodium Chloride) 100 mls @ 400 mls/hr IVPB 1100 [facility] Stop: 04/18/18 10:59 Last Admin: 03/22/18 10:43 Dose: 400 mls/hr Insulin Human Lispro (Humalog*) 0 units SUBCUT ACHS [facility] PRN Reason: Protocol Last Admin: 03/22/18 17:29 Dose: 6 units Isosorbide Mononitrate (Imdur Er Tab*) 60 mg PO DAILY [facility] Last Admin: 03/22/18 08:36 Dose: 60 mg Nicotine (Nicotine Patch 14 Mg/24 Hr*) 1 patch TRANSDERM DAILY [facility] Last Admin: 03/22/18 08:38 Dose: 1 patch Ondansetron HCl (Zofran Inj*) 4 mg IV Q4H PRN PRN Reason: NAUSEA/VOMITING Last Admin: 03/09/18 11:57 Dose: 4 mg Oxycodone/Acetaminophen (Percocet 5/325 Tab*) 1 tab PO Q6H PRN PRN Reason: PAIN Last Admin: 03/22/18 08:38 Dose: 1 tab Pharmacy Profile Note (Nicotine Patch Removal Note*) 1 note PATCH OFF 2200 [facility] Last Admin: 03/21/18 21:18 Dose: 1 note Potassium Phos/Sodium Phos (Neutra Phos 250 Mg Chay*) 250 mg PO TID [facility] Last Admin: 03/22/18 12:46 Dose: 250 mg Prednisone (Deltasone Tab*) 20 mg PO DAILY [facility] Last Admin: 03/22/18 08:38 Dose: 20 mg Prochlorperazine Edisylate (Compazine Inj*) 5 mg IV Q6H PRN PRN Reason: NAUSEA/VOMITING Last Admin: 03/16/18 12:24 Dose: 5 mg Quetiapine Fumarate (Seroquel Tab*) 50 mg PO BEDTIME [facility] Last Admin: 03/21/18 21:12 Dose: 50 mg Senna (Senokot Tab*) 1 tab PO BID PRN PRN Reason: CONSTIPATION Last Admin: 03/10/18 21:01 Dose: 1 tab Spironolactone (Aldactone Tab*) 25 mg PO DAILY [facility] Last Admin: 03/22/18 08:37 Dose: 25 mg Throat Lozenges (Chloraseptic Faustina*) 1 faustina PO Q6H PRN PRN Reason: SORE THROAT Last Admin: 03/21/18 22:44 Dose: 1 faustina Tiotropium [place] (Spiriva Cap.Inh*) 1 cap INH DAILY [facility] Last Admin: 03/22/18 08:55 Dose: 1 cap Vital Signs - 8 hr 03/22/18 03/22/18 03/22/18 11:36 11:43 11:44 Temperature 98.0 F Pulse Rate 84 Respiratory 16 16 16 Rate Blood Pressure 114/68 (mmHg) O2 Sat by Pulse 96 Oximetry 03/22/18 03/22/18 03/22/18 12:47 14:59 15:28 Temperature 98.9 F Pulse Rate 93 Respiratory 16 20 16 Rate Blood Pressure 103/69 (mmHg) O2 Sat by Pulse 99 Oximetry Oxygen Devices in Use Now: Nasal Cannula Appearance: sitting up in bed, eating dinner, NAD Eyes: No Scleral Icterus, PERRLA Ears/Nose/Mouth/Throat: NL Teeth, Lips, Gums, Clear Oropharnyx Neck: NL Appearance and Movements; NL JVP, Trachea Midline Respiratory: Symmetrical Chest Expansion and Respiratory Effort, - - clear Cardiovascular: NL Sounds; No Murmurs; No JVD, RRR Abdominal: NL Sounds; No Tenderness; No Distention, No Hepatosplenomegaly Lymphatic: No Cervical Adenopathy Extremities: No Edema Skin: No Rash or Ulcers Neurological: Alert and Oriented x 3 Result Diagrams: 03/21/18 04:40 03/21/18 04:40 Additional Lab and Data: Lab Results 03/08/18 03/08/18 03/08/18 Range/Units 18:33 18:34 18:34 WBC 13.7 H (3.5-10.8) 10^3/ul RBC 4.59 (4.0-5.4) 10^6/ul Hgb 13.6 (12.0-16.0) g/dl Hct 39 (35-47) % MCV 86 (80-97) fL MCH 30 (27-31) pg MCHC 34 (31-36) g/dl RDW 15 (10.5-15) % Plt Count 246 (150-450) 10^3/ul MPV 7.8 (7.4-10.4) um3 Neut % (Auto) Not Reportable Lymph % (Auto) Not Reportable [place] % (Auto) Not Reportable Eos % (Auto) Not Reportable Baso % (Auto) Not Reportable Absolute Neuts (auto) Not Reportable Absolute Lymphs (auto) Not Reportable Absolute Monos (auto) Not Reportable Absolute Eos (auto) Not Reportable Absolute Basos (auto) Not Reportable Absolute Nucleated RBC Not Reportable Immature Gran % 6 (0-9) % Neutrophils % 79 (38-83) % Band Neutrophils % 6 (0-8) % Lymphocytes % 8 L (25-47) % Monocytes % 7 (0-7) % Eosinophils % 0 (0-6) % Basophils % 0 (0-2) % Nucleated RBC % Not Reportable Abs Neuts (Manual) 10.8 H (1.5-7.7) 10^3/ul Abs Lymphs (Manual) 1.1 (1.0-4.8) 10^3/ul Abs Monocytes (Manual) 1.0 H (0-0.8) 10^3/ul Absolute Eos (Manual) 0 (0-0.6) 10^3/ul Abs Basophils (Manual) 0 (0-0.2) 10^3/ul Large Platelets Present Normal RBC Morphology Normal (Normal) INR (Anticoag Therapy) 1.18 H (0.77-1.02) D-Dimer, Quantitative 911 H (Less Than 230) ng/mL VBG pH (7.33-7.43) VBG pCO2 (41-51) mmHg VBG pO2 (35-45) mmHg VBG HCO3 (24-28) mmol/L VBG O2 Saturation (70-80) % VBG Base Excess (0-4) Sodium 136 L (139-145) mmol/L Potassium 3.1 L (3.5-5.0) mmol/L Chloride 102 (101-111) mmol/L Carbon Dioxide 24 (22-32) mmol/L Anion Gap 10 (2-11) mmol/L BUN 12 (6-24) mg/dL Creatinine 0.80 (0.51-0.95) mg/dL Est GFR ( Amer) 93.8 (>60) Est GFR (Non-Af Amer) 72.9 (>60) BUN/Creatinine Ratio 15.0 (8-20) Glucose 92 (70-100) mg/dL Lactic Acid (0.5-2.0) mmol/L Calcium 8.4 L (8.6-10.3) mg/dL Magnesium 1.0 L (1.9-2.7) mg/dL Total Bilirubin 1.30 H (0.2-1.0) mg/dL AST 12 L (13-39) U/L ALT 9 (7-52) U/L Alkaline Phosphatase 85 (34-104) U/L Total Creatine Kinase 86 (10-223) U/L Troponin I 0.00 (<0.04) ng/mL C-Reactive Protein 108.11 H (< 5.00) mg/L B-Natriuretic Peptide ( - 100) pg/mL Total Protein 6.6 (6.4-8.9) g/dL Albumin 3.3 (3.2-5.2) g/dL Globulin 3.3 (2-4) g/dL Albumin/Globulin Ratio 1.0 (1-3) 03/08/18 03/08/18 03/08/18 Range/Units 18:34 18:34 18:52 WBC (3.5-10.8) 10^3/ul RBC (4.0-5.4) 10^6/ul Hgb (12.0-16.0) g/dl Hct (35-47) % MCV (80-97) fL MCH (27-31) pg MCHC (31-36) g/dl RDW (10.5-15) % Plt Count (150-450) 10^3/ul MPV (7.4-10.4) um3 Neut % (Auto) Lymph % (Auto) [place] % (Auto) Eos % (Auto) Baso % (Auto) Absolute Neuts (auto) Absolute Lymphs (auto) Absolute Monos (auto) Absolute Eos (auto) Absolute Basos (auto) Absolute Nucleated RBC Immature Gran % (0-9) % Neutrophils % (38-83) % Band Neutrophils % (0-8) % Lymphocytes % (25-47) % Monocytes % (0-7) % Eosinophils % (0-6) % Basophils % (0-2) % Nucleated RBC % Abs Neuts (Manual) (1.5-7.7) 10^3/ul Abs Lymphs (Manual) (1.0-4.8) 10^3/ul Abs Monocytes (Manual) (0-0.8) 10^3/ul Absolute Eos (Manual) (0-0.6) 10^3/ul Abs Basophils (Manual) (0-0.2) 10^3/ul Large Platelets Normal RBC Morphology (Normal) INR (Anticoag Therapy) (0.77-1.02) D-Dimer, Quantitative (Less Than 230) ng/mL VBG pH (7.33-7.43) VBG pCO2 (41-51) mmHg VBG pO2 (35-45) mmHg VBG HCO3 (24-28) mmol/L VBG O2 Saturation (70-80) % VBG Base Excess (0-4) Sodium (139-145) mmol/L Potassium (3.5-5.0) mmol/L Chloride (101-111) mmol/L Carbon Dioxide (22-32) mmol/L Anion Gap (2-11) mmol/L BUN (6-24) mg/dL Creatinine (0.51-0.95) mg/dL Est GFR ( Amer) (>60) Est GFR (Non-Af Amer) (>60) BUN/Creatinine Ratio (8-20) Glucose (70-100) mg/dL Lactic Acid 1.7 1.9 (0.5-2.0) mmol/L Calcium (8.6-10.3) mg/dL Magnesium (1.9-2.7) mg/dL Total Bilirubin (0.2-1.0) mg/dL AST (13-39) U/L ALT (7-52) U/L Alkaline Phosphatase (34-104) U/L Total Creatine Kinase (10-223) U/L Troponin I (<0.04) ng/mL C-Reactive Protein (< 5.00) mg/L B-Natriuretic Peptide 173 H ( - 100) pg/mL Total Protein (6.4-8.9) g/dL Albumin (3.2-5.2) g/dL Globulin (2-4) g/dL Albumin/Globulin Ratio (1-3) /06/18 Range/Units 19:29 WBC (3.5-10.8) 10^3/ul RBC (4.0-5.4) 10^6/ul Hgb (12.0-16.0) g/dl Hct (35-47) % MCV (80-97) fL MCH (27-31) pg MCHC (31-36) g/dl RDW (10.5-15) % Plt Count (150-450) 10^3/ul MPV (7.4-10.4) um3 Neut % (Auto) Lymph % (Auto) Darke % (Auto) Eos % (Auto) Baso % (Auto) Absolute Neuts (auto) Absolute Lymphs (auto) Absolute Monos (auto) Absolute Eos (auto) Absolute Basos (auto) Absolute Nucleated RBC Immature Gran % (0-9) % Neutrophils % (38-83) % Band Neutrophils % (0-8) % Lymphocytes % (25-47) % Monocytes % (0-7) % Eosinophils % (0-6) % Basophils % (0-2) % Nucleated RBC % Abs Neuts (Manual) (1.5-7.7) 10^3/ul Abs Lymphs (Manual) (1.0-4.8) 10^3/ul Abs Monocytes (Manual) (0-0.8) 10^3/ul Absolute Eos (Manual) (0-0.6) 10^3/ul Abs Basophils (Manual) (0-0.2) 10^3/ul Large Platelets Normal RBC Morphology (Normal) INR (Anticoag Therapy) (0.77-1.02) D-Dimer, Quantitative (Less Than 230) ng/mL VBG pH 7.37 (7.33-7.43) VBG pCO2 47 (41-51) mmHg VBG pO2 12 L (35-45) mmHg VBG HCO3 23.6 L (24-28) mmol/L VBG O2 Saturation 18.5 L (70-80) % VBG Base Excess 1.2 (0-4) Sodium (139-145) mmol/L Potassium (3.5-5.0) mmol/L Chloride (101-111) mmol/L Carbon Dioxide (22-32) mmol/L Anion Gap (2-11) mmol/L BUN (6-24) mg/dL Creatinine (0.51-0.95) mg/dL Est GFR ( Amer) (>60) Est GFR (Non-Af Amer) (>60) BUN/Creatinine Ratio (8-20) Glucose (70-100) mg/dL Lactic Acid (0.5-2.0) mmol/L Calcium (8.6-10.3) mg/dL Magnesium (1.9-2.7) mg/dL Total Bilirubin (0.2-1.0) mg/dL AST (13-39) U/L ALT (7-52) U/L Alkaline Phosphatase (34-104) U/L Total Creatine Kinase (10-223) U/L Troponin I (<0.04) ng/mL C-Reactive Protein (< 5.00) mg/L B-Natriuretic Peptide ( - 100) pg/mL Total Protein (6.4-8.9) g/dL Albumin (3.2-5.2) g/dL Globulin (2-4) g/dL Albumin/Globulin Ratio (1-3) Microbiology and Other Data: Microbiology 03/12/18 10:40 Gram Stain - Final Sputum Sputum Culture - Final YEAST 03/13/18 08:30 Urine Culture - Final Urine No Growth (<1,000 CFU/mL) 03/09/18 17:57 Legionella Urinary Antigen - Final Urine Negative Legionella Antigen Streptococcus pneumoniae Ag Screen - Final Negative S. pneumo Antigen 03/09/18 01:05 Nasal Screen MRSA (PCR)([facility]) - Final Nasal Mrsa Not Detected Assess/Plan/Problems-Billing Assessment: Ms. Cummings is a 62 yo F who has a h/o COPD, past bowel resection for bowel ischemia in 2011, CVA with residual r sided weakness, presented with SOB, PNA (suspected aspiration), H. influenzae bacteremia/sepsis found with infective endocarditis - Patient Problems (1) Bacteremia Comment: H. influenzae bacteremia and acute bacterial endocarditis- aortic vave vegetation,at 0.8 pt will need 6 weeks of IV Ceftriaxone 2 grams Q24H. day PICC line in place (2) Aspiration pneumonia Comment: Associated severe sepsis (resolved) and acute hypoxemic respiratory failure requiring intubation (extubated on 03/14/18) (resolved) Will need 02 at discharge. will need f/u CXR as outpatient (3) Chronic lower back pain Comment: gabapentin increased from 300 to 400 mg TID. cont Percocet prn. Pt had a steroid injection to lower back days prior to admission. (4) KARLI (obstructive sleep apnea) Comment: cont nightly CPAP (5) COPD exacerbation Comment: cont Prednisone 20 mg daily (tapered down on 03/18/18) (6) HTN (hypertension) Comment: cont amlodipine and aldactone controlled (7) DVT prophylaxis Comment: - SQ heparin. Status and Disposition: appealing discharge
[2018-03-22] MEDS: QUEtiapine TAB* 25 MG PO SCH (21:09)
[2018-03-22] MEDS: ALPRAZolam TAB* 0.5 MG PO PRN (21:09)
[2018-03-22] MEDS: Nicotine Patch Removal NOTE PATCH OFF SCH (21:11)
[2018-03-23] MEDS: Heparin VIAL(*) 5000 UNITS/ML VIAL (FIVE THOUSAND) SUBCUT SCH (05:46)
[2018-03-23] MEDS: Albuterol 2.5 MG/3 ML NEB.SOL* (0.083%) INH SCH (07:56)
[2018-03-23] MEDS: Tiotropium CAP.INH* CAP.INH/18 MCG (USE ORDER SET !) INH SCH (07:57)
[2018-03-23] MEDS: Insulin LISPRO* 1 UNITS UNIT SUBCUT SCH ×2 (08:04→11:44)
[2018-03-23 08:05] VITALS: BP 104/66
[2018-03-23] MEDS: amLODIPine TAB* 5 MG PO SCH (08:16)
[2018-03-23] MEDS: Nicotine PATCH 14 MG/24 HR* PATCH TRANSDERM SCH (08:25)
[2018-03-23] MEDS: Potassium & Sodium Phos 250MG* = 1 PACKET PO SCH (08:26)
[2018-03-23] MEDS: Gabapentin CAP(*) 400 MG PO SCH (08:27)
[2018-03-23] MEDS: Spironolactone TAB* 25 MG PO SCH (08:28)
[2018-03-23] MEDS: Isosorbide Mononitrate ER TAB* 60 MG PO SCH (08:28)
[2018-03-23] MEDS: Aspirin EC TAB* 81 MG TAB.EC PO SCH (08:28)
[2018-03-23] MEDS: FLUoxetine CAP* 20 MG PO SCH (08:28)
[2018-03-23] MEDS: Famotidine TAB* 20 MG PO SCH (08:28)
[2018-03-23] MEDS: predniSONE TAB* 20 MG PO SCH (08:28)
[2018-03-23] MEDS: cefTRIAXone(*) 2 GM in NS 0.9% 100 ML* 100 ML IVPB SCH ×2 (11:26→11:44)
--- NOTE | 2018-03-23 12:37 | DCNOTE ---
Subjective Date of Service: 03/23/18 Interval History: Seen prior to discharge Walked around unit with no distress feels ready for discharge Objective Active Medications: Acetaminophen (Tylenol Adult Liq*) 650 mg PO Q4H PRN PRN Reason: FEVER/PAIN Last Admin: 03/17/18 04:29 Dose: 650 mg Al Hydrox/Mg Hydrox/Simethicone (Maalox Plus*) 30 ml PO Q6H PRN PRN Reason: INDIGESTION Albuterol (Ventolin 2.5 Mg/3 Ml Neb.Flakita*) 2.5 mg INH BID [facility] Last Admin: 03/23/18 07:56 Dose: 2.5 mg Albuterol (Ventolin Hfa Inhaler*) 1 puff INH Q4H PRN PRN Reason: SOB/WHEEZING Alprazolam (Xanax Tab*) 0.5 mg PO DAILY PRN PRN Reason: ANXIETY Last Admin: 03/22/18 21:09 Dose: 0.5 mg Amlodipine Besylate (Norvasc Tab*) 10 mg PO DAILY [facility] Last Admin: 03/23/18 08:16 Dose: Not Given Aspirin (Aspirin Ec Tab*) 81 mg PO DAILY [facility] Last Admin: 03/23/18 08:28 Dose: 81 mg Device (Nicotine Mouth Piece*) 1 each INH .USE WITH NICOTROL PRN PRN Reason: CRAVING Device (Tiotropium Inhaler Device*) 1 each INH .USE w/ SPIRIVA CAPS [facility] Last Admin: 03/20/18 07:12 Dose: 1 each Dextrose (D50w Syringe 50 Ml*) 12.5 gm IV PUSH .FOR FS < 60 - SS PRN PRN Reason: FS < 60 Docusate Sodium (Colace Cap*) 100 mg PO BID PRN PRN Reason: CONSTIPATION Famotidine (Pepcid Tab*) 20 mg PO DAILY [facility] Last Admin: 03/23/18 08:28 Dose: 20 mg Fluoxetine HCl (Prozac Cap*) 60 mg PO QAM [facility] Last Admin: 03/23/18 08:28 Dose: 60 mg Gabapentin (Neurontin Cap(*)) 400 mg PO TID [facility] Last Admin: 03/23/18 08:27 Dose: 400 mg Heparin Sodium (Porcine) (Heparin Vial(*)) 5,000 units SUBCUT Q8HR [facility] Last Admin: 03/23/18 05:46 Dose: 5,000 units Heparin Sodium (Porcine) (Heparin Flush Picc/Ml/Cvc(*)) 1 ml FLUSH 0600,1800 [facility] PRN Reason: Protocol Last Admin: 03/23/18 05:46 Dose: 3 ml Ceftriaxone Sodium 2 gm/ (Sodium Chloride) 100 mls @ 400 mls/hr IVPB 1100 [facility] Stop: 04/18/18 10:59 Last Admin: 03/23/18 11:44 Dose: 400 mls/hr Insulin Human Lispro (Humalog*) 0 units SUBCUT ACHS [facility] PRN Reason: Protocol Last Admin: 03/23/18 11:44 Dose: 3 units Isosorbide Mononitrate (Imdur Er Tab*) 60 mg PO DAILY [facility] Last Admin: 03/23/18 08:28 Dose: 60 mg Nicotine (Nicotine Patch 14 Mg/24 Hr*) 1 patch TRANSDERM DAILY [facility] Last Admin: 03/23/18 08:25 Dose: 1 patch Ondansetron HCl (Zofran Inj*) 4 mg IV Q4H PRN PRN Reason: NAUSEA/VOMITING Last Admin: 03/09/18 11:57 Dose: 4 mg Oxycodone/Acetaminophen (Percocet 5/325 Tab*) 1 tab PO Q6H PRN PRN Reason: PAIN Last Admin: 03/22/18 08:38 Dose: 1 tab Pharmacy Profile Note (Nicotine Patch Removal Note*) 1 note PATCH OFF 2200 [facility] Last Admin: 03/22/18 21:11 Dose: Not Given Potassium Phos/Sodium Phos (Neutra Phos 250 Mg Chay*) 250 mg PO TID [facility] Last Admin: 03/23/18 08:26 Dose: 250 mg Prednisone (Deltasone Tab*) 20 mg PO DAILY [facility] Last Admin: 03/23/18 08:28 Dose: 20 mg Prochlorperazine Edisylate (Compazine Inj*) 5 mg IV Q6H PRN PRN Reason: NAUSEA/VOMITING Last Admin: 03/16/18 12:24 Dose: 5 mg Quetiapine Fumarate (Seroquel Tab*) 50 mg PO BEDTIME [facility] Last Admin: 03/22/18 21:09 Dose: 50 mg Senna (Senokot Tab*) 1 tab PO BID PRN PRN Reason: CONSTIPATION Last Admin: 03/10/18 21:01 Dose: 1 tab Spironolactone (Aldactone Tab*) 25 mg PO DAILY [facility] Last Admin: 03/23/18 08:28 Dose: 25 mg Throat Lozenges (Chloraseptic Faustina*) 1 faustina PO Q6H PRN PRN Reason: SORE THROAT Last Admin: 03/21/18 22:44 Dose: 1 faustina Tiotropium [place] (Spiriva Cap.Inh*) 1 cap INH DAILY [facility] Last Admin: 03/23/18 07:57 Dose: 1 cap Vital Signs - 8 hr 03/23/18 03/23/18 03/23/18 07:18 07:58 08:00 Temperature 98.0 F Pulse Rate 79 74 Respiratory 17 14 16 Rate Blood Pressure 104/66 (mmHg) O2 Sat by Pulse 99 98 98 Oximetry 03/23/18 03/23/18 08:27 11:14 Temperature Pulse Rate Respiratory 16 18 Rate Blood Pressure (mmHg) O2 Sat by Pulse Oximetry Oxygen Devices in Use Now: Nasal Cannula Appearance: walking around room, NAD Eyes: No Scleral Icterus Ears/Nose/Mouth/Throat: NL Teeth, Lips, Gums, Clear Oropharnyx Neck: NL Appearance and Movements; NL JVP Respiratory: Symmetrical Chest Expansion and Respiratory Effort, Clear to Auscultation Cardiovascular: RRR Neurological: Alert and Oriented x 3 Result Diagrams: 03/21/18 04:40 03/21/18 04:40 Additional Lab and Data: Lab Results 03/08/18 03/08/18 03/08/18 Range/Units 18:33 18:34 18:34 WBC 13.7 H (3.5-10.8) 10^3/ul RBC 4.59 (4.0-5.4) 10^6/ul Hgb 13.6 (12.0-16.0) g/dl Hct 39 (35-47) % MCV 86 (80-97) fL MCH 30 (27-31) pg MCHC 34 (31-36) g/dl RDW 15 (10.5-15) % Plt Count 246 (150-450) 10^3/ul MPV 7.8 (7.4-10.4) um3 Neut % (Auto) Not Reportable Lymph % (Auto) Not Reportable Winston % (Auto) Not Reportable Eos % (Auto) Not Reportable Baso % (Auto) Not Reportable Absolute Neuts (auto) Not Reportable Absolute Lymphs (auto) Not Reportable Absolute Monos (auto) Not Reportable Absolute Eos (auto) Not Reportable Absolute Basos (auto) Not Reportable Absolute Nucleated RBC Not Reportable Immature Gran % 6 (0-9) % Neutrophils % 79 (38-83) % Band Neutrophils % 6 (0-8) % Lymphocytes % 8 L (25-47) % Monocytes % 7 (0-7) % Eosinophils % 0 (0-6) % Basophils % 0 (0-2) % Nucleated RBC % Not Reportable Abs Neuts (Manual) 10.8 H (1.5-7.7) 10^3/ul Abs Lymphs (Manual) 1.1 (1.0-4.8) 10^3/ul Abs Monocytes (Manual) 1.0 H (0-0.8) 10^3/ul Absolute Eos (Manual) 0 (0-0.6) 10^3/ul Abs Basophils (Manual) 0 (0-0.2) 10^3/ul Large Platelets Present Normal RBC Morphology Normal (Normal) INR (Anticoag Therapy) 1.18 H (0.77-1.02) D-Dimer, Quantitative 911 H (Less Than 230) ng/mL VBG pH (7.33-7.43) VBG pCO2 (41-51) mmHg VBG pO2 (35-45) mmHg VBG HCO3 (24-28) mmol/L VBG O2 Saturation (70-80) % VBG Base Excess (0-4) Sodium 136 L (139-145) mmol/L Potassium 3.1 L (3.5-5.0) mmol/L Chloride 102 (101-111) mmol/L Carbon Dioxide 24 (22-32) mmol/L Anion Gap 10 (2-11) mmol/L BUN 12 (6-24) mg/dL Creatinine 0.80 (0.51-0.95) mg/dL Est GFR ( Amer) 93.8 (>60) Est GFR (Non-Af Amer) 72.9 (>60) BUN/Creatinine Ratio 15.0 (8-20) Glucose 92 (70-100) mg/dL Lactic Acid (0.5-2.0) mmol/L Calcium 8.4 L (8.6-10.3) mg/dL Magnesium 1.0 L (1.9-2.7) mg/dL Total Bilirubin 1.30 H (0.2-1.0) mg/dL AST 12 L (13-39) U/L ALT 9 (7-52) U/L Alkaline Phosphatase 85 (34-104) U/L Total Creatine Kinase 86 (10-223) U/L Troponin I 0.00 (<0.04) ng/mL C-Reactive Protein 108.11 H (< 5.00) mg/L B-Natriuretic Peptide ( - 100) pg/mL Total Protein 6.6 (6.4-8.9) g/dL Albumin 3.3 (3.2-5.2) g/dL Globulin 3.3 (2-4) g/dL Albumin/Globulin Ratio 1.0 (1-3) 03/08/18 03/08/18 03/08/18 Range/Units 18:34 18:34 18:52 WBC (3.5-10.8) 10^3/ul RBC (4.0-5.4) 10^6/ul Hgb (12.0-16.0) g/dl Hct (35-47) % MCV (80-97) fL MCH (27-31) pg MCHC (31-36) g/dl RDW (10.5-15) % Plt Count (150-450) 10^3/ul MPV (7.4-10.4) um3 Neut % (Auto) Lymph % (Auto) Winston % (Auto) Eos % (Auto) Baso % (Auto) Absolute Neuts (auto) Absolute Lymphs (auto) Absolute Monos (auto) Absolute Eos (auto) Absolute Basos (auto) Absolute Nucleated RBC Immature Gran % (0-9) % Neutrophils % (38-83) % Band Neutrophils % (0-8) % Lymphocytes % (25-47) % Monocytes % (0-7) % Eosinophils % (0-6) % Basophils % (0-2) % Nucleated RBC % Abs Neuts (Manual) (1.5-7.7) 10^3/ul Abs Lymphs (Manual) (1.0-4.8) 10^3/ul Abs Monocytes (Manual) (0-0.8) 10^3/ul Absolute Eos (Manual) (0-0.6) 10^3/ul Abs Basophils (Manual) (0-0.2) 10^3/ul Large Platelets Normal RBC Morphology (Normal) INR (Anticoag Therapy) (0.77-1.02) D-Dimer, Quantitative (Less Than 230) ng/mL VBG pH (7.33-7.43) VBG pCO2 (41-51) mmHg VBG pO2 (35-45) mmHg VBG HCO3 (24-28) mmol/L VBG O2 Saturation (70-80) % VBG Base Excess (0-4) Sodium (139-145) mmol/L Potassium (3.5-5.0) mmol/L Chloride (101-111) mmol/L Carbon Dioxide (22-32) mmol/L Anion Gap (2-11) mmol/L BUN (6-24) mg/dL Creatinine (0.51-0.95) mg/dL Est GFR ( Amer) (>60) Est GFR (Non-Af Amer) (>60) BUN/Creatinine Ratio (8-20) Glucose (70-100) mg/dL Lactic Acid 1.7 1.9 (0.5-2.0) mmol/L Calcium (8.6-10.3) mg/dL Magnesium (1.9-2.7) mg/dL Total Bilirubin (0.2-1.0) mg/dL AST (13-39) U/L ALT (7-52) U/L Alkaline Phosphatase (34-104) U/L Total Creatine Kinase (10-223) U/L Troponin I (<0.04) ng/mL C-Reactive Protein (< 5.00) mg/L B-Natriuretic Peptide 173 H ( - 100) pg/mL Total Protein (6.4-8.9) g/dL Albumin (3.2-5.2) g/dL Globulin (2-4) g/dL Albumin/Globulin Ratio (1-3) 03/08/18 Range/Units 19:29 WBC (3.5-10.8) 10^3/ul RBC (4.0-5.4) 10^6/ul Hgb (12.0-16.0) g/dl Hct (35-47) % MCV (80-97) fL MCH (27-31) pg MCHC (31-36) g/dl RDW (10.5-15) % Plt Count (150-450) 10^3/ul MPV (7.4-10.4) um3 Neut % (Auto) Lymph % (Auto) Winston % (Auto) Eos % (Auto) Baso % (Auto) Absolute Neuts (auto) Absolute Lymphs (auto) Absolute Monos (auto) Absolute Eos (auto) Absolute Basos (auto) Absolute Nucleated RBC Immature Gran % (0-9) % Neutrophils % (38-83) % Band Neutrophils % (0-8) % Lymphocytes % (25-47) % Monocytes % (0-7) % Eosinophils % (0-6) % Basophils % (0-2) % Nucleated RBC % Abs Neuts (Manual) (1.5-7.7) 10^3/ul Abs Lymphs (Manual) (1.0-4.8) 10^3/ul Abs Monocytes (Manual) (0-0.8) 10^3/ul Absolute Eos (Manual) (0-0.6) 10^3/ul Abs Basophils (Manual) (0-0.2) 10^3/ul Large Platelets Normal RBC Morphology (Normal) INR (Anticoag Therapy) (0.77-1.02) D-Dimer, Quantitative (Less Than 230) ng/mL VBG pH 7.37 (7.33-7.43) VBG pCO2 47 (41-51) mmHg VBG pO2 12 L (35-45) mmHg VBG HCO3 23.6 L (24-28) mmol/L VBG O2 Saturation 18.5 L (70-80) % VBG Base Excess 1.2 (0-4) Sodium (139-145) mmol/L Potassium (3.5-5.0) mmol/L Chloride (101-111) mmol/L Carbon Dioxide (22-32) mmol/L Anion Gap (2-11) mmol/L BUN (6-24) mg/dL Creatinine (0.51-0.95) mg/dL Est GFR ( Amer) (>60) Est GFR (Non-Af Amer) (>60) BUN/Creatinine Ratio (8-20) Glucose (70-100) mg/dL Lactic Acid (0.5-2.0) mmol/L Calcium (8.6-10.3) mg/dL Magnesium (1.9-2.7) mg/dL Total Bilirubin (0.2-1.0) mg/dL AST (13-39) U/L ALT (7-52) U/L Alkaline Phosphatase (34-104) U/L Total Creatine Kinase (10-223) U/L Troponin I (<0.04) ng/mL C-Reactive Protein (< 5.00) mg/L B-Natriuretic Peptide ( - 100) pg/mL Total Protein (6.4-8.9) g/dL Albumin (3.2-5.2) g/dL Globulin (2-4) g/dL Albumin/Globulin Ratio (1-3) Microbiology and Other Data: Microbiology 03/12/18 10:40 Gram Stain - Final Sputum Sputum Culture - Final YEAST 03/13/18 08:30 Urine Culture - Final Urine No Growth (<1,000 CFU/mL) 03/09/18 17:57 Legionella Urinary Antigen - Final Urine Negative Legionella Antigen Streptococcus pneumoniae Ag Screen - Final Negative S. pneumo Antigen 03/09/18 01:05 Nasal Screen MRSA (PCR)(TRAMAINE) - Final Nasal Mrsa Not Detected Assess/Plan/Problems-Billing Assessment: Ms. Cummings is a 62 yo F who has a h/o COPD, past bowel resection for bowel ischemia in 2011, CVA with residual r sided weakness, presented with SOB, PNA (suspected aspiration), H. influenzae bacteremia/sepsis found with infective endocarditis - Patient Problems (1) Bacteremia Comment: H. influenzae bacteremia and acute bacterial endocarditis- aortic vave vegetation,at 0.8 pt will need 6 weeks of IV Ceftriaxone 2 grams Q24H. day PICC line in place (2) Aspiration pneumonia Comment: Associated severe sepsis (resolved) and acute hypoxemic respiratory failure requiring intubation (extubated on 03/14/18) (resolved) Will need 02 at discharge. will need f/u CXR as outpatient (3) Chronic lower back pain Comment: gabapentin increased from 300 to 400 mg TID. cont Percocet prn. Pt had a steroid injection to lower back days prior to admission. (4) KARLI (obstructive sleep apnea) Comment: cont nightly CPAP CR to rent CPAP machine (5) COPD exacerbation Comment: cont Prednisone 20 mg daily (tapered down on 03/18/18) (6) HTN (hypertension) Comment: cont amlodipine and aldactone controlled Status and Disposition: Appealed discharge but was declined. Pt feels ready to leave today. No changes in clinical status since discharge was dictated 2 days prior. Medications reconciled. Follow up labs weekly ordered on discharge
== END 2018-03-23 13:30 | DRG 720 ==
LOC: ED 15:40 → ICU 20:21 → MEDTELE 03-15 17:32 → MED 03-20 04:11
PROVIDERS: ADMIT Pediatrics; ATTEND Internal Medicine
PROC: 0BH17EZ Insertion of Endotracheal Airway into Trachea, Via Natural or Artificial Opening (ICD-10-PCS; principal; 2018-03-09)
PROC: 02HV33Z Insertion of Infusion Device into Superior Vena Cava, Percutaneous Approach (ICD-10-PCS; 2018-03-09)
PROC: 5A09457 Assistance with Respiratory Ventilation, 24-96 Consecutive Hours, Continuous Positive Airway Pressure (ICD-10-PCS; 2018-03-09)
PROC: 0BP1XDZ Removal of Intraluminal Device from Trachea, External Approach (ICD-10-PCS; 2018-03-14)
PROC: 5A1955Z Respiratory Ventilation, Greater than 96 Consecutive Hours (ICD-10-PCS; 2018-03-14)
PROC: B24BZZ4 Ultrasonography of Heart with Aorta, Transesophageal (ICD-10-PCS; 2018-03-18)
DX: A41.3 Sepsis due to Hemophilus influenzae (principal); J96.01 Acute respiratory failure with hypoxia; I33.0 Acute and subacute infective endocarditis; J69.0 Pneumonitis due to inhalation of food and vomit; G93.40 Encephalopathy, unspecified; R04.2 Hemoptysis; J44.0 Chronic obstructive pulmonary disease with (acute) lower respiratory infection; I50.32 Chronic diastolic (congestive) heart failure; J44.1 Chronic obstructive pulmonary disease with (acute) exacerbation; I69.351 Hemiplegia and hemiparesis following cerebral infarction affecting right dominant side; G47.33 Obstructive sleep apnea (adult) (pediatric); R11.0 Nausea; G89.29 Other chronic pain; R10.9 Unspecified abdominal pain; I11.0 Hypertensive heart disease with heart failure; M79.7 Fibromyalgia; F41.9 Anxiety disorder, unspecified; F32.9 Major depressive disorder, single episode, unspecified; M19.90 Unspecified osteoarthritis, unspecified site; F17.210 Nicotine dependence, cigarettes, uncomplicated; D64.9 Anemia, unspecified; R65.20 Severe sepsis without septic shock; M54.5 Low back pain; B96.3 Hemophilus influenzae [H. influenzae] as the cause of diseases classified elsewhere; R73.02 Impaired glucose tolerance (oral); Z90.49 Acquired absence of other specified parts of digestive tract; Z91.19 Patient's noncompliance with other medical treatment and regimen; Z82.3 Family history of stroke; Z90.710 Acquired absence of both cervix and uterus; Z79.82 Long term (current) use of aspirin; Z79.4 Long term (current) use of insulin
CPT/HCPCS: 36415; 36600; 71045; 71046; 71275; 80048; 80053; 81003; 81015; 82550; 82803; 83036; 83605; 83735; 83880; 84100; 84155; 84165; 84484; 85025; 85027; 85379; 85610; 86140; 86703; 87040; 87070; 87077; 87086; 87185; 87205; 87641; 87899; 93005; 93306; 93312; 93325; 94002; 94003; 94640; 94660; 99156; 99157; 99285; 99406; A9270-GY; C1751; G8978-GP-CL; G8980-GP-CI; G8987-GO-CI; G8988-GO-CI; G8989-GO-CI; J0330; J0456; J0696; J0780; J1644; J1940; J2250; J2270; J2310; J2405; J2543; J2704; J2920; J2930; J3010; J3370; J3475; J3480; J7512; Q9967

== ENCOUNTER 2018-04-08 18:06 | Emergency (ER) | payer OTHER ==
[2018-04-08] MEDS ORDERED: oxyCODONE/Acetamin 5/325 MG* TAB PO ONE (19:35)
--- NOTE | 2018-04-08 21:31 | RAD ---
Indication: Right upper extremity pain. Duplex Doppler sonography of the right upper extremity deep venous system was performed. PICC line is in the right brachial vein. Internal jugular veins appear patent bilaterally. Subclavian veins demonstrates normal phasic flow. Axillary vein and brachial vein appear patent. Basilic vein, cephalic vein, radial vein and ulnar vein appear patent. IMPRESSION: PICC line in the right brachial vein. No evidence of right upper extremity venous thrombosis is noted.
[2018-04-08] MEDS ORDERED: Metoclopramide IV* 5 MG/ML 2 ML VIAL IV SLOW PU ONE (21:40)
[2018-04-08] MEDS ORDERED: Morphine VIAL* 4 MG/ML VIAL (1 ml vial) IV ONE (21:40)
[2018-04-08] MEDS ORDERED: Vancomycin(*) 1,000 MG in NS 0.9% 250 ML* 250 ML IVPB ONE (21:41)
[2018-04-08 21:59] LABS: Hematocrit 37 % (35-47); Hemoglobin 12.3 g/dl (12.0-16.0); Mean Corpuscular HGB Conc 34 g/dl (31-36); Mean Corpuscular Hemoglobin 29 pg (27-31); Mean Corpuscular Volume 87 fL (80-97); Mean Platelet Volume 7.1 um3 (7.4-10.4); Platelet Count 226 10^3/ul (150-450); Red Cell Distribution Width 15 % (10.5-15); White Blood Count 4.6 10^3/ul (3.5-10.8)
[2018-04-08 22:24] LABS: EGFR Non-African American 86.5 (>60)
[2018-04-08 22:37] LABS: Monocytes % 16 % (0-7)
--- NOTE | 2018-04-08 23:43 | ED ---
Mitali Minor Jade, scribed for Vaughn Garcia MD on 04/08/18 at 1943 . Upper Extremity Pain - HPI Summary HPI Summary: Pt is a 62 y/o female who presents to the ED c/o RUE pain over her PICC line at 17:30. She states she was diagnosed with endocarditis 1 month ago, and had a PICC line placed in her RUE. She states the pain started suddenly, and denies use of the PICC line during time of pain. Pt was sent over by [facility], and was given a Percocet and NTG at 17:00. - History of Current Complaint Chief Complaint: EDExtremityUpper Stated Complaint: CHEST PAIN Time Seen by Provider: 04/08/18 19:16 Hx Obtained From: Patient Onset/Duration: Started Hours Ago - 17:30, Still Present Timing: Constant Aggravating Factor(s): Nothing Alleviating Factor(s): Nothing Associated Signs & Symptoms: Positive: Other - RUE pain - Allergies/Home Medications Allergies/Adverse Reactions: Allergies Allergy/AdvReac Type Severity Reaction Status Date / Time No Known Allergies Allergy Verified 03/08/18 15:52 Home Medications: Home Medications Gabapentin CAP(*) [Neurontin 400 mg CAP(*)] 400 mg PO 0900,1500,2100 04/08/18 [ History Confirmed 04/08/18] diPHENhydraMINE PO* [Benadryl PO 25 MG TAB*] 25 mg PO Q6H PRN 04/08/18 [History Confirmed 04/08/18] PMH/Surg Hx/FS Hx/Imm Hx Endocrine/Hematology History: Denies: Hx Diabetes Cardiovascular History: Reports: Hx Hypertension Denies: Hx Congestive Heart Failure Respiratory History: Reports: Hx Asthma, Hx Chronic Obstructive Pulmonary Disease (COPD) - tobacco use, Hx Pneumonia GI History: Reports: Hx Obstructive Bowel, Other GI Disorders - bowel resection History: Denies: Hx Renal Disease Musculoskeletal History: Reports: Hx Fibromyalgia, Hx Tendonitis Sensory History: Reports: Hx Contacts or Glasses Denies: Hx Hearing Aid Opthamlomology History: Reports: Hx Contacts or Glasses - Surgical History Surgery Procedure, Year, and Place: Hysterectomy. Bowel resection 2011. Left hand tendon repair 2014. right knee build up 2013 Infectious Disease History: No Infectious Disease History: Reports: Hx Shingles - not active Denies: History Other Infectious Disease, Traveled Outside the [place] in Last 30 Days - Family History Known Family History: Negative: Renal Disease - Social History Alcohol Use: None Hx Substance Use: No Substance Use Type: Reports: None Substance Use Comment - Amount & Last Used: xanax Hx Tobacco Use: Yes Smoking Status (MU): Light Every Day Tobacco Smoker Type: Cigarettes Review of Systems Negative: Fever Positive: Other - Pain over RUE (PICC line) All Other Systems Reviewed And Are Negative: Yes Physical Exam - Summary Physical Exam Summary: VITAL SIGNS: Reviewed. GENERAL: ~Patient is a well-developed and nourished female who is lying comfortable in the stretcher. Patient is not in any acute respiratory distress. HEAD AND FACE: No signs of trauma. No ecchymosis, hematomas or skull depressions. No sinus tenderness. EYES: PERRLA, EOMI x 2, No injected conjunctiva, no nystagmus. EARS: Hearing grossly intact. Ear canals and tympanic membranes are within normal limits. MOUTH: Oropharynx within normal limits. NECK: Supple, trachea is midline, no adenopathy, no JVD, no carotid bruit, no c- spine tenderness, neck with full ROM. CHEST: Symmetric, no tenderness at palpation LUNGS: Clear to auscultation bilaterally. No wheezing or crackles. CVS: Regular rate and rhythm, S1 and S2 present, no murmurs or gallops appreciated. ABDOMEN: Soft, non-tender. No signs of distention. No rebound no guarding, and no masses palpated. Bowel sounds are normal. EXTREMITIES: FROM in all major joints, no edema, no cyanosis or clubbing. PICC line RUE, tenderness proximally over PICC. No swelling. Good pulses. NEURO: Alert and oriented x 3. No acute neurological deficits. Speech is normal and follows commands. SKIN: Dry and warm Triage Information Reviewed: Yes Vital Signs On Initial Exam: Initial Vitals Temp Pulse Resp BP Pulse Ox 98.0 F 68 15 140/91 98 04/08/18 18:13 04/08/18 18:13 04/08/18 18:13 04/08/18 18:13 04/08/18 18:13 Vital Signs Reviewed: Yes Diagnostics - Vital Signs Vital Signs Temp Pulse Resp BP Pulse Ox 04/08/18 18:13 98.0 F 68 15 140/91 98 - Laboratory Result Diagrams: 04/08/18 21:49 04/08/18 21:49 Lab Statement: Any lab studies that have been ordered have been reviewed, and results considered in the medical decision making process. - Ultrasound No standard instances Ultrasound Interpretation: No Acute Changes - Upper Extremity Doppler: PICC line in the right brachial vein. No evidence of right upper extremity venous thrombosis is noted. ED physician reviewed radiology report. Ultrasound Interpretation Completed By: Radiologist Re-Evaluation - Re-Evaluation First Eval Re-Evaluation Time: 21:30 Change: Unchanged Comment: Still having pain proximal to PICC line. Will admit for PICC line removal in the morning. Second Eval Re-Evaluation Time: 22:32 Change: Improved Comment: PICC line removed. Tip of PICC line sent for culture. Pain has completely resolved. Course/Dx - Course Course Of Treatment: Pt is a 62 y/o female who presents to the ED c/o RUE pain over her PICC line at 17:30. The PICC line was placed in her RUE 1 month ago for endocarditis. The pain started suddenly, and denies use of the PICC line during time of pain. Pt was sent over by [facility], and was given a Percocet and NTG at 17:00. An upper extremity Doppler showed PICC line in the right brachial vein, and no evidence of right upper extremity venous thrombosis noted. In the ED course, pt was given Reglan, Morphine, Percocet, and Vancomycin , which improved symptoms. The first re-evaluation showed the pt still having pain proximal to PICC line. The second re-evaluation showed the pts pain completely resolved, the PICC line removed, and the PICC tip sent for culture. Patient will be discharged, with final diagnoses of PICC line removal and pain due to PICC line. Pt will be given IV antibiotics, and the detention staff will arrange an appointment on Wednesday for a PICC line to be placed. Pt is agreeable with this plan. - Diagnoses Provider Diagnoses: PIC line (peripherally inserted central catheter) removal - Physician Notifications Discussed Care of Patient With: Delmer Mahoney Time Discussed With Above Provider: 21:45 Instructed by Provider To: Admit As Inpatient Discharge - Sign-Out/Discharge Documenting (check all that apply): Discharge/Admit/Transfer - Discharge - Discharge Plan Condition: Stable Disposition: HOME Patient Education Materials: Peripherally Inserted Central Catheters and Midline Catheters in... (DC) Referrals: Jeanie Montanez MD [Primary Care Provider] - 3 Days Additional Instructions: RETURN TO EMERGENCY DEPARTMENT FOR ANY NEW OR WORSENING SYMPTOMS. IV antibiotics given to nursing staff. senior living staff will arrange appointment on Wednesday for a new PICC line to be placed. The documentation as recorded by the Mitali rios Jade accurately reflects the service I personally performed and the decisions made by Radha pat Abdul, MD.
[2018-04-09 01:37] VITALS: BP 111/75
== END 2018-04-09 01:35 | disposition home or self-care (01) ==
LOC: ED 18:06
DX: Z45.2 Encounter for adjustment and management of vascular access device (principal); R07.9 Chest pain, unspecified; F17.210 Nicotine dependence, cigarettes, uncomplicated
CPT/HCPCS: 36415; 80053; 85025; 85060; 86140; 87071; 96365; 96375; 99285; A9270-GY; J2270; J2765; J3370

== ENCOUNTER 2018-09-21 11:22 | Day surgery (SDC) | payer OTHER ==
[~2018-09-21 11:22] MED LIST: Buffered Lidocaine 0.9% SYRIN* 5 ML/SYR SYRINGE INTRADERM ONE
[2018-09-21] MEDS ORDERED: fentaNYL* 50 MCG/ML 2 ML VIAL (100 MCG VIAL) ONE (13:43)
[2018-09-21] MEDS ORDERED: Midazolam* 1 MG/ML 5 ML VIAL (5 MG) ONE (13:49)
[2018-09-21] MEDS ORDERED: Naloxone* 0.4 MG/ML 1 ML VIAL IV PRN (15:06)
[2018-09-21 17:05] VITALS: BP 108/83
--- NOTE | 2018-09-22 05:27 | PRO ---
CC: Jeanie Montanez MD* PROCEDURE NOTE: DATE OF PROCEDURE: 09/21/18 PROCEDURE: EGD with biopsy. REFERRING PROVIDER: Jeanie Montanez MD. MEDICATIONS: Given by anesthesia. INDICATION: GERD, dysphagia, abdominal pain. Esophagram with hiatal hernia and small Schatzki ring. PROCEDURE IN DETAIL: Full disclosure of risks were reviewed with the patient as detailed on the consent form. The patient was placed in the left lateral decubitus position and monitored with continuous pulse oximetry, interval blood pressure monitoring, and direct observation. A bite-block was placed between the teeth. An Olympus gastroscope was then inserted into the patient's mouth and advanced down the stomach into the esophagus and the distal duodenum. Findings are described below. FINDINGS: Esophagus demonstrates scattered areas of white exudate concerning for Sabrina esophagitis. There was also linear furrowing noted. Biopsies obtained from the proximal and mid esophagus. Scope was advanced into the distal esophagus where a very wide open Schatzki's ring was noted. This was disrupted with biopsy forceps. The scope was advanced into the stomach. There was a 4 cm hiatal hernia with the top of the gastric folds occurring at 42 cm. The GE junction was at 38 cm. The GE junction was regular. Stomach was examined in the forward and retroflex views. There were multiple small gastric antral erosions noted. Biopsies obtained. There was also some mild/moderate gastric erythema. Scope was then advanced into the duodenum to the third portion. The duodenum was normal in appearance. The scope was withdrawn from the patient. The patient tolerated the procedure well and was recovered in the GI recovery area. IMPRESSION: 1. White exudate in the esophagus concerning for sabrina esophagitis, biopsied. 2. Some linear furrowing noted in the esophagus, possibly consistent with eosinophilic esophagitis. Biopsies obtained. 3. Wide open Schatzki's ring noted which was disrupted with biopsy forceps. The patient's multiple medical comorbidities made her quite challenging to sedate even from anesthesia standpoint. It was not felt that she would tolerate prolonged anesthesia with a balloon dilation. Hopefully, she will have some improvement in her symptoms with disruption of the Schatzki's ring and evaluation of the other possible causes of dysphagia. Could consider repeat EGD with empiric dilation if symptoms persist in the future. 4. Hiatal hernia. 5. Gastric antral erosions and gastric antral erythema, biopsied. FOLLOWUP: 1. Await pathology. 2. Increase omeprazole to 40 mg b.i.d. 3. Await pathology for confirmation of sabrina esophagitis. Consider empiric treatment even if biopsies do not reveal fungal growth given high suspicion. Thank you for this kind referral. [id number]/[facility] #: [id number] MTDD
== END 2018-09-21 17:06 | disposition home or self-care (01) ==
LOC: OR 11:22
PROVIDERS: ATTEND Internal Medicine Gastroenterology
DX: R13.10 Dysphagia, unspecified (principal); K21.9 Gastro-esophageal reflux disease without esophagitis; R10.9 Unspecified abdominal pain; R07.89 Other chest pain; K62.5 Hemorrhage of anus and rectum; J44.9 Chronic obstructive pulmonary disease, unspecified; I25.10 Atherosclerotic heart disease of native coronary artery without angina pectoris; I27.20 Pulmonary hypertension, unspecified; G47.33 Obstructive sleep apnea (adult) (pediatric)
CPT/HCPCS: 88305; 88312; 88342; J2250; J3010

== ENCOUNTER 2019-03-29 11:00 | Day surgery (SDC) | payer OTHER ==
[~2019-03-29 11:00] MED LIST changes: -Buffered Lidocaine 0.9% SYRIN* 5 ML/SYR SYRINGE INTRADERM ONE; +Buffered Lidocaine 1% SYRIN* 1 ML/SYRINGE INTRADERM ONE; +Lactated Ringers 1000 ML Bag* 1,000 ML IV SCH
[2019-03-29] MEDS ORDERED: Buffered Lidocaine 1% SYRIN* 1 ML/SYRINGE INTRADERM ONE (11:19)
[2019-03-29] MEDS ORDERED: Levalbuterol 0.63MG/3ML NEB* UNIT OF USE INH ONE (11:24)
[2019-03-29] MEDS ORDERED: fentaNYL* 50 MCG/ML 2 ML VIAL (100 MCG VIAL) ONE (12:18)
[2019-03-29] MEDS ORDERED: Midazolam* 1 MG/ML 2 ML VIAL (2 MG) ONE (12:18)
[2019-03-29] MEDS ORDERED: Famotidine IV* 10 MG/ML 2 ML (20 mg) ONE (13:29)
[2019-03-29] MEDS ORDERED: Lidocaine 4% TOPICAL* 50 ML TOP.SOLN ONE (13:38)
[2019-03-29] MEDS ORDERED: Lidocaine 2% PF * 5 ML VIAL ONE (13:43)
[2019-03-29] MEDS ORDERED: Dexamethasone IV* 4 MG/ML 1 ML (4 MG) ONE (13:43)
[2019-03-29] MEDS ORDERED: Propofol* 10 MG/ML 20 ML BTL ONE ×2 (13:43)
[2019-03-29] MEDS ORDERED: KETAMINE HCL* 50 MG/ML 10 ML VIAL ONE (13:48)
[2019-03-29] MEDS ORDERED: Levalbuterol 1.25MG/0.5ML NEB INH PRN (14:10)
[2019-03-29] MEDS ORDERED: Acetaminophen TAB* 325 MG PO PRN (14:10)
[2019-03-29] MEDS ORDERED: DiMENhydriNATE IV* 50 MG/ML VIAL IV PUSH PRN (14:10)
[2019-03-29] MEDS ORDERED: Naloxone* 0.4 MG/ML 1 ML VIAL IV PRN (14:10)
[2019-03-29] MEDS ORDERED: PROCHLORPERAZINE INJ 5 MG/ML 2 ML VIAL IV PRN (14:10)
[2019-03-29 15:22] VITALS: BP 116/70
--- NOTE | 2019-03-29 21:08 | PRO ---
CC: Dr. Jeanie Montanez PROCEDURE REPORT: DATE OF PROCEDURE: 03/29/19 PROCEDURE: EGD with dilation and biopsy. REFERRING PROVIDER: Dr. Jeanie Montanez. INDICATION: The patient has history of significant GERD and underwent a fundoplication in the past. She complains of ongoing GERD and solid food dysphagia. An EGD in September demonstrated Schatzki ring, which was disrupted with biopsy forceps. She also had gastric antral erosions noted at the time of exam. H pylori negative. The patient stated that there was no significant change in swallowing after the EGD. Presents today for repeat EGD with dilation. She is on b.i.d. PPI with some possible improvement in her reflux symptoms as compared to once a day. MEDICATIONS GIVEN: By Anesthesia. DESCRIPTION OF PROCEDURE: Full disclosure of risks was reviewed with the patient as detailed on the consent form. The patient was placed in the left lateral decubitus position and monitored with continuous pulse oximetry, capnography, interval blood pressure monitoring, and direct observation. A bite -block was placed between the patient's teeth. An adult gastroscope was then inserted into the patient's mouth and advanced down the esophagus, into the stomach, and into the distal duodenum. Findings and interventions are described below. FINDINGS: Esophagus was a tubular structure with a widely patent Schatzki ring in the distal esophagus. GE junction occurred at 38 cm. Hiatal hernia was noted with the top of the gastric folds occurring at 42 cm. Scope was easily advanced into the stomach. The stomach was examined in the forward and retroflexed views. No significant gastric erythema. No erosions or ulcers. Fundoplication seen on retroflexion. Scope was advanced into the duodenum to at least the third portion. Mucosa was normal in appearance. Scope was then withdrawn back into the esophagus where balloon dilation was performed. The balloon was initially dilated to 15 and then 16.5 mm without any resistance noted. The balloon was then dilated to 18 mm and held for 45 seconds. There was some resistance felt with dilation at this size. The balloon was then taken down and the ring was reexamined. There was a small mucosal rent at the ring. The scope was then withdrawn from the patient. The patient tolerated the procedure well and was recovered in the GI recovery area. IMPRESSION: 1. Complete upper endoscopy to distal duodenum. 2. Schatzki ring dilated to 18 mm with small mucosal rent. 3. Hiatal hernia. Fundoplication wrap appreciated on gastric retroflexion. FOLLOWUP: 1. Continue PPI b.i.d. 2. Schedule follow-up in clinic. Thank you very much for this referral. [id number]/[facility] #: [id number] YOU
--- NOTE | 2019-03-29 21:16 | PRO ---
PROCEDURE REPORT: DATE OF PROCEDURE: 03/29/19 PROCEDURE: Colonoscopy with biopsy. REFERRING PROVIDER: Dr. 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 Per chart, patient's sigmoid and rectum were left intact. This was complicated by retroperitoneal abscess and breakdown of her anastomosis. She underwent a small bowel resection during that same hospitalization. She had a colonoscopy in 2017, which was unremarkable with fair prep. Seen in clinic with complaints of irregular bowel movements and intermittent rectal bleeding. Favored to be hemorrhoids. Pursuing flex sig versus colonoscopy today to assess for bleeding source. MEDICATIONS: Given by Anesthesia. DESCRIPTION OF PROCEDURE: Full disclosure of risks was reviewed with the patient as detailed on the consent form. The patient was placed in the left lateral decubitus position and monitored with continuous pulse oximetry, capnography, interval blood pressure monitoring, and direct observation. After anorectal examination was performed, the adult colonoscope was inserted into the rectum and slowly advanced forward to the level of the ileocolonic anastomosis. Scope was then advanced into the ileum x15 cm. Photodocumentation of landmarks obtained. Quality of prep was fair. Careful inspection was made as the colonoscope was withdrawn. Retroflexion was performed in the rectum. Findings and interventions are described below. FINDINGS: Anorectal exam was unremarkable. Scope was inserted into the rectum and slowly advanced forward. The ileocolonic anastomosis occurred at approximately 45-50 cm, although I suspect there may have been some looping in the colonoscope. The ileum was intubated x15 cm and was normal in appearance. The scope was then withdrawn back to the anastomosis. There were several red patches around the anastomosis. Biopsies obtained. Scope was then withdrawn throughout the length of the colon. There was some residual liquid and debris, which was suctioned to reveal fairly adequate views of the mucosa. No polyps or masses noted. Retroflexion in the rectum demonstrated irritated-appearing internal hemorrhoids. Scope was then withdrawn from the patient. The patient tolerated the procedure well and was recovered in the GI recovery area. IMPRESSION: 1. Complete colonoscopy to ileum 2. Ileocolonic anastomosis. Several patches of mild redness near anastomosis. Otherwise, anastomosis was healthy-appearing. 3. Internal hemorrhoids. Favor these to be the source of intermittent rectal bleeding. FOLLOWUP: 1. Recommend anusol suppositories twice a day for 1 to 2 weeks. 2. Reviewed conservative management for hemorrhoids. 3. Consider referral to Surgery to discuss further management of the hemorrhoids if bleeding persists. Thank you very much for this referral. [id number]/[facility] #: [id number] YOU
== END 2019-03-29 15:59 | disposition home or self-care (01) ==
LOC: OR 11:00
PROVIDERS: ATTEND Internal Medicine Gastroenterology
DX: R13.10 Dysphagia, unspecified (principal); K62.5 Hemorrhage of anus and rectum; K64.8 Other hemorrhoids; K44.9 Diaphragmatic hernia without obstruction or gangrene; K21.9 Gastro-esophageal reflux disease without esophagitis; K22.2 Esophageal obstruction; Z98.0 Intestinal bypass and anastomosis status; I10 Essential (primary) hypertension; G47.33 Obstructive sleep apnea (adult) (pediatric); F41.8 Other specified anxiety disorders; I50.9 Heart failure, unspecified; J45.909 Unspecified asthma, uncomplicated; J44.9 Chronic obstructive pulmonary disease, unspecified; Z99.81 Dependence on supplemental oxygen; Z87.891 Personal history of nicotine dependence; I25.10 Atherosclerotic heart disease of native coronary artery without angina pectoris; I11.0 Hypertensive heart disease with heart failure
CPT/HCPCS: 88305; J1100; J2250; J2704; J3010

== ENCOUNTER 2019-07-24 11:30 | Day surgery (SDC) | payer OTHER ==
[2019-07-24] MEDS ORDERED: ceFOXitin 2 GM IVPREMIX* 2 GM/50 ML BAG ONE (12:08)
[2019-07-24] MEDS ORDERED: Gelfoam 12-7 ADSORBABL SPONGE* 1 EA SPONGE ONE (12:40)
[2019-07-24] MEDS ORDERED: Bupivacaine 0.25% SDV PF* 10 ML VIAL INJ ONE (12:40)
[2019-07-24] MEDS ORDERED: Midazolam* 1 MG/ML 5 ML VIAL (5 MG) ONE (12:47)
[2019-07-24] MEDS ORDERED: fentaNYL* 50 MCG/ML 2 ML VIAL (100 MCG VIAL) ONE (12:55)
[2019-07-24] MEDS ORDERED: Propofol* 10 MG/ML 20 ML BTL ONE (13:06)
[2019-07-24] MEDS ORDERED: oxyCODONE/Acetamin 5/325 MG* TAB PO PRN (13:11)
[2019-07-24] MEDS ORDERED: Ondansetron INJ* 2 MG/ML VIAL IV PRN (13:11)
[2019-07-24] MEDS ORDERED: fentaNYL* 50 MCG/ML 2 ML VIAL (100 MCG VIAL) IV PRN (13:11)
[2019-07-24] MEDS ORDERED: Naloxone* 0.4 MG/ML 1 ML VIAL IV PRN (13:11)
[2019-07-24 13:40] VITALS: BP 106/77
--- NOTE | 2019-07-24 23:09 | OP ---
DATE OF OPERATION: 07/24/19 - [facility] DATE OF : 57 SURGEON: Gabriel Harrison MD VP OF MARKETING: None. PRE-OP DIAGNOSIS: Anal pain from bleeding. POST-OP DIAGNOSIS: Posterior midline fissure. OPERATIVE PROCEDURE: Rectal examination under anesthesia, lateral internal sphincterotomy. INDICATIONS FOR PROCEDURE: Anal pain, not able to be examined in the office. Risks of hemorrhoidectomy or sphincterotomy including, but not limited to bleeding, infection, temporary or permanent incontinence to gas or stool, persistent pain or fissure, bleeding with current hemorrhoids all explained to the patient, who seemed to understand and agreed to procedure and all questions were answered. DESCRIPTION OF PROCEDURE: The patient was taken to the operating room, placed in a prone jackknife position. Sedation was given by the anesthesiologist. The buttock was taped apart. The area was prepped and draped in sterile fashion. Time-out was performed indicating correct patient and correct procedure. Digital rectal examination revealed no masses. A retractor was placed in the rectum. Some mild internal hemorrhoids were noted. A posterior midline fissure was noted, small. Decision was made to perform a left lateral internal sphincterotomy. Skin was anesthetized with Marcaine plain. Incision was made and a hemostat was placed in the intersphincteric groove. Small amount of muscle was isolated and divided using a Bovie cautery, 10% of the muscle was divided. The wound was irrigated. Antibiotic ointment was applied. A gauze dressing was placed in the area. The patient tolerated the procedure well. She was taken to Recovery in stable condition. [id number]/[facility] #: [id number] [facility]
== END 2019-07-24 14:48 | disposition home or self-care (01) ==
LOC: OR 11:30
PROVIDERS: ATTEND Surgery
DX: K60.2 Anal fissure, unspecified (principal); K62.5 Hemorrhage of anus and rectum; K62.89 Other specified diseases of anus and rectum; K64.8 Other hemorrhoids; I10 Essential (primary) hypertension; J44.9 Chronic obstructive pulmonary disease, unspecified; Z99.81 Dependence on supplemental oxygen; I25.10 Atherosclerotic heart disease of native coronary artery without angina pectoris; M79.7 Fibromyalgia; F32.89 Other specified depressive episodes; Z87.891 Personal history of nicotine dependence; Z86.73 Personal history of transient ischemic attack (TIA), and cerebral infarction without residual deficits
CPT/HCPCS: A9270-GY; J0694; J2250; J2704; J3010; J3490

== ENCOUNTER 2019-11-07 07:43 | Day surgery (SDC) | payer OTHER ==
[~2019-11-07 07:43] MED LIST changes: +Acetaminophen TAB* 325 MG PO PRN; -Lactated Ringers 1000 ML Bag* 1,000 ML IV SCH
[2019-11-07] MEDS ORDERED: Midazolam* 1 MG/ML 2 ML VIAL (2 MG) ONE (09:05)
[2019-11-07 09:55] VITALS: BP 135/85
--- NOTE | 2019-11-07 10:26 | OP ---
DATE OF OPERATION/DATE OF DICTATION: 11/07/2019 - [facility] DATE OF : 1955. SURGEON: Dr. Vinny Dubose. MACHINE SPLITTER: None. ANESTHESIA: Topical with intravenous sedation. PRE-OP DIAGNOSIS: Cataract, right eye. POST-OP DIAGNOSIS: Cataract, right eye. OPERATIVE PROCEDURE: Phacoemulsification and cataract extraction with posterior chamber intraocular lens implant, right eye. COMPLICATIONS: None. BLOOD LOSS: None. DESCRIPTION OF PROCEDURE: The patient was brought to the operating room and received a small amount of intravenous sedation. A drop of Tetracaine was placed in her right eye. She was prepped and draped in the usual sterile fashion for ophthalmic surgery and attention was directed to the right eye where a speculum was placed. A paracentesis was created at the 11 o'clock position and 0.1 cc of 1 percent preservative-free Lidocaine was injected into the anterior chamber followed by DisCoVisc. The eye was digitally stabilized while a 2.75 mm keratome was used to create a triplanar clear corneal incision at the 9 o'clock position. A continuous curvilinear capsulorrhexis was created with a cystotome and Utrata forceps. BSS on a cannula was used to hydrodissect the lens from the capsule. Phacoemulsification was performed in a divide-and- conquer technique to create four fragments which were removed. Residual cortical material was removed with irrigation and aspiration. DisCoVisc was used to inflate the capsular bag and an AUOOTO 21.5 diopter lens was folded and inserted into the capsular bag. DisCoVisc was removed using irrigation and aspiration. BSS on a cannula was used to hydrate the corneal stroma and seal the wound. At the end of the case the pupil was round and the lens was centered. The eye was of normal pressure and the wound was water tight. The speculum was removed and topical Maxitrol ointment was placed on the surface of the eye. The eye was closed, patched and shielded and the patient was sent to the recovery room in stable condition with post operative instructions and follow-up appointment given. [id number]/[facility] #: [id number] [facility]
[2019-11-07] MEDS ORDERED: Neomycin/Polymy/Dex OPHTH.OIN* 3.5 GM ONE (11:20)
[2019-11-07] MEDS ORDERED: Ketorolac 0.5% OPHTH (NF) 0.5 % 5 ML BTL ONE (11:20)
[2019-11-07] MEDS ORDERED: Phenylephrine OPHTH SOL 2.5%* 2 ML ONE (11:20)
[2019-11-07] MEDS ORDERED: Lidocaine 1% MPF ** 5 ML VIAL ONE (11:20)
[2019-11-07] MEDS ORDERED: Tetracaine 0.5% OPTH.SOL 4 ML* 1 DROP BTL ONE (11:20)
[2019-11-07] MEDS ORDERED: Tropicamide 1% OPTH.SOL* BTL ONE (11:20)
[2019-11-07] MEDS ORDERED: Cyclopentolate 1% OPTH.SOL* 2 ML BTL ONE (11:20)
[2019-11-07] MEDS ORDERED: Phenylephr/Ketorolac 1%/0.3% OPH DROP BTL ONE (11:40)
== END 2019-11-07 09:43 | disposition home or self-care (01) ==
LOC: OREAST 07:43
PROVIDERS: ATTEND Ophthalmology
DX: H25.041 Posterior subcapsular polar age-related cataract, right eye (principal); J44.9 Chronic obstructive pulmonary disease, unspecified; E11.9 Type 2 diabetes mellitus without complications; Z79.84 Long term (current) use of oral hypoglycemic drugs; I10 Essential (primary) hypertension; M06.9 Rheumatoid arthritis, unspecified; M79.7 Fibromyalgia; M32.9 Systemic lupus erythematosus, unspecified
CPT/HCPCS: A9270-GY; J1097; J2250; V2632

== ENCOUNTER 2019-11-14 07:11 | Day surgery (SDC) | payer OTHER ==
[2019-11-14] MEDS ORDERED: Midazolam* 1 MG/ML 2 ML VIAL (2 MG) ONE (07:39)
[2019-11-14 09:24] VITALS: BP 130/91
--- NOTE | 2019-11-14 11:22 | OP ---
DATE OF OPERATION/DATE OF DICTATION: 11/14/2019 - [facility] DATE OF : 1955. SURGEON: Dr. Vinny Dubose. COTTON PICKER: None. ANESTHESIA: Topical with intravenous sedation. PRE-OP DIAGNOSIS: Cataract, left eye. POST-OP DIAGNOSIS: Cataract, left eye. OPERATIVE PROCEDURE: Phacoemulsification and cataract extraction with posterior chamber intraocular lens implant, left eye. COMPLICATIONS: None. BLOOD LOSS: None. DESCRIPTION OF PROCEDURE: The patient was brought to the operating room and received a small amount of intravenous sedation. A drop of Tetracaine was placed in her left eye. She was prepped and draped in the usual sterile fashion for ophthalmic surgery and attention was directed to the left eye where a speculum was placed. A paracentesis was created at the 5 o'clock position and 0.1 cc of 1 percent preservative-free Lidocaine was injected into the anterior chamber followed by DisCoVisc. The eye was digitally stabilized while a 2.75 mm keratome was used to create a triplanar clear corneal incision at the 3 o'clock position. A continuous curvilinear capsulorrhexis was created with a cystotome and Utrata forceps. BSS on a cannula was used to hydrodissect the lens from the capsule. Phacoemulsification was performed in a divide-and- conquer technique to create four fragments which were removed. Residual cortical material was removed with irrigation and aspiration. DisCoVisc was used to inflate the capsular bag and an AUOOTO 21.5 diopter lens was folded and inserted into the capsular bag. DisCoVisc was removed using irrigation and aspiration. BSS on a cannula was used to hydrate the corneal stroma and seal the wound. At the end of the case the pupil was round and the lens was centered. The eye was of normal pressure and the wound was water tight. The speculum was removed and topical Maxitrol ointment was placed on the surface of the eye. The eye was closed, patched and shielded and the patient was sent to the recovery room in stable condition with post operative instructions and follow-up appointment given. [id number]/[facility] #: [id number] [facility]
[2019-11-14] MEDS ORDERED: Cyclopentolate 1% OPTH.SOL* 2 ML BTL ONE (14:32)
[2019-11-14] MEDS ORDERED: Phenylephrine OPHTH SOL 2.5%* 2 ML ONE (14:32)
[2019-11-14] MEDS ORDERED: Ketorolac 0.5% OPHTH (NF) 0.5 % 5 ML BTL ONE (14:32)
[2019-11-14] MEDS ORDERED: Neomycin/Polymy/Dex OPHTH.OIN* 3.5 GM ONE (14:32)
[2019-11-14] MEDS ORDERED: Lidocaine 1% MPF ** 5 ML VIAL ONE (14:32)
[2019-11-14] MEDS ORDERED: Tropicamide 1% OPTH.SOL* BTL ONE (14:32)
[2019-11-14] MEDS ORDERED: Tetracaine 0.5% OPTH.SOL 4 ML* 1 DROP BTL ONE (14:32)
== END 2019-11-14 08:48 | disposition home or self-care (01) ==
LOC: OREAST 07:11
PROVIDERS: ATTEND Ophthalmology
DX: H25.042 Posterior subcapsular polar age-related cataract, left eye (principal); J44.9 Chronic obstructive pulmonary disease, unspecified; E11.9 Type 2 diabetes mellitus without complications; Z79.84 Long term (current) use of oral hypoglycemic drugs; I10 Essential (primary) hypertension; M32.9 Systemic lupus erythematosus, unspecified; M79.7 Fibromyalgia; M06.9 Rheumatoid arthritis, unspecified
CPT/HCPCS: A9270-GY; J2250; V2632

== ENCOUNTER 2021-09-21 16:02 | Inpatient (IN) ==
[2021-09-21] MEDS ORDERED: Albuterol HFA INHALER 8 gm MDI INH PRN ×2 (17:49→22:17)
[2021-09-21] MEDS ORDERED: Azithromycin 500 mg/250 ml NS 500 MG/250 ML BAG IVPB ONE (17:50)
[2021-09-21] MEDS ORDERED: cefTRIAXone 1 gm/50 mL NS BAG 1 GM/50 ML BAG IV ONE (17:50)
[2021-09-21 18:38] LABS: Hematocrit 36 % (35-47); Mean Corpuscular HGB Conc 33 g/dL (31-36); Mean Corpuscular Hemoglobin 28 pg (27-31); Mean Corpuscular Volume 84 fL (80-97); Mean Platelet Volume 7.2 fL (7.4-10.4); Platelet Count 241 10^3/uL (150-450); Red Blood Count 4.27 10^6 /uL (3.70-4.87); Red Cell Distribution Width 14 % (10-15)
[2021-09-21 18:54] LABS: Influenza A Molecular Negative (Negative); Influenza B Molecular Negative (Negative); Rapid COVID-19 Molecular Undetected (Undetected)
[2021-09-21 18:59] LABS: ALT 30 U/L (7-52); AST 23 U/L (13-39); Albumin/Globulin Ratio 1.2 (1-3); Alkaline Phosphatase 101 U/L (35-149); Anion Gap 9 mmol/L (2-11); Blood Urea Nitrogen 12 mg/dL (6-24); CO2 Carbon Dioxide 25 mmol/L (22-32); Chloride 98 mmol/L (101-111); Globulin 3.3 g/dL (2-4); Glucose 171 mg/dL (70-100); Magnesium 1.1 mg/dL (1.9-2.7); Potassium 3.9 mmol/L (3.5-5.0); Sodium 132 mmol/L (135-145); Total Protein 7.3 g/dL (6.4-8.9)
[2021-09-21] MEDS ORDERED: Magnesium Sulfate IV 3 GM in NS 0.9% 100 ml BAG 100 ML IVPB ONE (19:02)
[2021-09-21 19:08] LABS: Troponin I 0.08 ng/mL (<0.03)
[2021-09-21 19:09] LABS: ABS Lymphocytes 0.5 10^3/ul (1.0-4.8); ABS Monocytes 1.2 10^3/ul (0-0.8); ABS Neutrophils 21.4 10^3/ul (1.5-7.7); Lymphocyte % 2.1 %; Nucleated Red Blood Cells % 0.1
[2021-09-21 19:10] LABS: Urine Appearance Clear; Urine Bilirubin Negative (Negative); Urine Blood Negative (Negative); Urine Color Yellow; Urine Glucose Negative (Negative); Urine Ketones Negative (Negative); Urine Nitrite Negative (Negative); Urine Protein Negative (Negative); Urine Specific Gravity 1.012 (1.002-1.030); Urine Urobilinogen Positive (Negative)
[2021-09-21] MEDS ORDERED: Iodixanol (CONTRAST) 320 MG/ML 100 ML SDV IV ONE (19:17)
[2021-09-21] MEDS ORDERED: Magnesium Sulfate IV 1GM/100ML 1 GM/100 ML BAG IV ONE (22:17)
[2021-09-21] MEDS: Enoxaparin 40 MG/0.4 ML SYR SUBCUT SCH (23:50)
[2021-09-22] MEDS ORDERED: Dextrose 50% Syringe 50 ml 25 GM/50 ML SYRINGE IV PUSH PRN (01:00)
[2021-09-22 01:10] LABS: Troponin I 0.24 ng/mL (<0.03)
[2021-09-22 04:22] LABS: Troponin I 0.05 ng/mL (<0.03)
[2021-09-22] MEDS: Enoxaparin 80 MG/0.8 ML SYR SUBCUT ONE ×2 (05:00→06:13)
[2021-09-22 06:20] LABS: Hematocrit 37 % (35-47); Hemoglobin 12.1 g/dL (12.0-16.0); Mean Corpuscular HGB Conc 33 g/dL (31-36); Mean Corpuscular Hemoglobin 28 pg (27-31); Mean Corpuscular Volume 84 fL (80-97); Mean Platelet Volume 7.5 fL (7.4-10.4); Platelet Count 232 10^3/uL (150-450); Red Blood Count 4.37 10^6 /uL (3.70-4.87); Red Cell Distribution Width 14 % (10-15)
[2021-09-22 06:23] LABS: ABS Basophils 0.1 10^3/ul (0-0.2); ABS Lymphocytes 0.9 10^3/ul (1.0-4.8); ABS Monocytes 1.2 10^3/ul (0-0.8); ABS Neutrophils 24.8 10^3/ul (1.5-7.7); Lymphocyte % 3.4 %; Nucleated Red Blood Cells % 0.1
[2021-09-22 06:32] LABS: Anion Gap 8 mmol/L (2-11); Blood Urea Nitrogen 16 mg/dL (6-24); CO2 Carbon Dioxide 26 mmol/L (22-32); Calcium 8.9 mg/dL (8.6-10.3); Chloride 100 mmol/L (101-111); Cholesterol 110 mg/dL; Glucose 214 mg/dL (70-100); HDL Cholesterol 57.9 mg/dL; LDL Cholesterol 43 mg/dL; Magnesium 2.8 mg/dL (1.9-2.7); Sodium 134 mmol/L (135-145); Triglycerides 48 mg/dL
[2021-09-22 07:18] LABS: Troponin I 0.08 ng/mL (<0.03)
[2021-09-22] MEDS: FLUTICASONE/UMECLIDIN/VILANTER 1 PUFF MDI INH SCH (09:03)
[2021-09-22 10:08] LABS: Troponin I 0.09 ng/mL (<0.03)
[2021-09-22 12:56] LABS: Troponin I 0.12 ng/mL (<0.03)
[2021-09-22 16:22] LABS: Troponin I 0.07 ng/mL (<0.03)
[2021-09-22] MEDS ORDERED: cefTRIAXone 1 gm/50 mL NS BAG 1 GM/50 ML BAG IVPB SCH (18:00)
[2021-09-22] MEDS: Albuterol/Ipratropium NEB.SOL (2.5/0.5 MG) 3 ML NEB.SOLN INH SCH (20:21)
[2021-09-22] MEDS: cefTRIAXone 1 gm/50 mL NS BAG 1 GM/50 ML BAG IVPB SCH (20:46)
[2021-09-22] MEDS: Enoxaparin 40 MG/0.4 ML SYR SUBCUT SCH (20:53)
[2021-09-22] MEDS ORDERED: Ondansetron 4 mg VIAL 2 MG/ML 2 ml VIAL IV ONE (21:05)
[2021-09-23 07:06] LABS: Albumin 3.5 g/dL (3.2-5.2); Albumin/Globulin Ratio 1.1 (1-3); Calcium 8.9 mg/dL (8.6-10.3); Globulin 3.3 g/dL (2-4); Potassium 3.9 mmol/L (3.5-5.0); Total Bilirubin 0.6 mg/dL (0.2-1.0); Total Protein 6.8 g/dL (6.4-8.9)
[2021-09-23] MEDS: Albuterol/Ipratropium NEB.SOL (2.5/0.5 MG) 3 ML NEB.SOLN INH SCH ×4 (08:46→20:23)
[2021-09-23] MEDS: FLUTICASONE/UMECLIDIN/VILANTER 1 PUFF MDI INH SCH (09:06)
[2021-09-23] MEDS: methylPREDNISolone SOD 40 mg/ml 1 ml VIAL IV SCH (17:11)
[2021-09-23] MEDS: cefTRIAXone 1 gm/50 mL NS BAG 1 GM/50 ML BAG IVPB SCH (17:27)
[2021-09-23] MEDS: Enoxaparin 40 MG/0.4 ML SYR SUBCUT SCH (20:12)
[2021-09-23] MEDS ORDERED: Ondansetron 4 mg VIAL 2 MG/ML 2 ml VIAL IV PRN (23:26)
[2021-09-24] MEDS: methylPREDNISolone SOD 40 mg/ml 1 ml VIAL IV SCH ×3 (00:23→17:22)
[2021-09-24 06:24] LABS: Hematocrit 35 % (35-47); Hemoglobin 11.5 g/dL (12.0-16.0); Mean Corpuscular HGB Conc 33 g/dL (31-36); Mean Corpuscular Hemoglobin 28 pg (27-31); Mean Corpuscular Volume 86 fL (80-97); Mean Platelet Volume 7.6 fL (7.4-10.4); Platelet Count 249 10^3/uL (150-450); Red Cell Distribution Width 15 % (10-15); White Blood Count 9.5 10^3/uL (3.5-10.8)
[2021-09-24 06:46] LABS: Calcium 9.1 mg/dL (8.6-10.3); eGFR CKD-EPI 76.5 (>60)
[2021-09-24 06:57] LABS: Potassium 5.2 mmol/L (3.5-5.0)
[2021-09-24] MEDS: FLUTICASONE/UMECLIDIN/VILANTER 1 PUFF MDI INH SCH (08:37)
[2021-09-24] MEDS: Albuterol/Ipratropium NEB.SOL (2.5/0.5 MG) 3 ML NEB.SOLN INH SCH (08:37)
[2021-09-24 11:45] VITALS: BP 129/89
== END 2021-09-24 18:20 | disposition home or self-care (01) | DRG 139 ==
LOC: ED 16:02 → EDHOLD 22:26 → SUATTDRO 22:26 → MED 09-22 10:30
PROVIDERS: ADMIT Student in an Organized Health Care Education/Training Program; ATTEND Internal Medicine

== ENCOUNTER 2023-09-05 09:22 | Inpatient (IN) ==
[2023-09-05] MEDS ORDERED: Naloxone 0.4 mg VIAL 0.4 mg/ml 1 ml VIAL IV PUSH ONE (09:32)
[2023-09-05] MEDS ORDERED: NS 0.9% 1000 ml BAG 1,000 ML IV ONE (09:33)
[2023-09-05] MEDS ORDERED: Albuterol/Ipratropium NEB.SOL (2.5/0.5 MG) 3 ML NEB.SOLN INH ONE (09:57)
[2023-09-05 09:59] LABS: Albumin 4.1 g/dL (3.2-5.2); Albumin/Globulin Ratio 1.1 (1-3); C Reactive Protein 4.15 mg/L (<8.01); Calcium 9.4 mg/dL (8.6-10.3); Creatinine, Serum 1.11 mg/dL (0.51-0.95); Direct Bilirubin 0.1 mg/dL (0.03-0.18); Globulin 3.8 g/dL (2-4); HDL Cholesterol 65.7 mg/dL; Indirect Bilirubin 0.6 mg/dL (0.3-1.0); Potassium 3.7 mmol/L (3.5-5.0); Total Bilirubin 0.7 mg/dL (0.2-1.0); Total Protein 7.9 g/dL (6.4-8.9); eGFR CKD-EPI 54.8 (>60)
[2023-09-05 10:04] LABS: Activated Partial Thrombo Time 28.9 seconds (26.0-38.0); INR 1.03 (0.83-1.13)
[2023-09-05 10:23] LABS: PCO2 Arterial 38 mmHg (35-45); PO2 Arterial 192 mmHg (80-100)
[2023-09-05 11:09] LABS: ABS Basophils 0.1 10^3/uL (0.0-0.1); ABS Neutrophils 7.9 10^3/uL (1.5-7.6); ABS Nucleated RBC 0.01 10^3/ul; Eosinophil % 0.1 %; Hematocrit 41.4 % (35-45); Hemoglobin 13.8 g/dL (11.5-14.3); Lymphocyte % 10.1 %; Mean Corpuscular Hemoglobin 28.5 pg (27-33); Mean Corpuscular Hgb Conc 33.3 g/dL (31-36); Mean Corpuscular Volume 85.6 fL (80-97); Nucleated Red Blood Cells % 0.1 %/100WBC (0.0-0.8); Platelet Count 254 10^3/uL (150-450); Red Blood Count 4.84 10^6/uL (3.63-4.92); White Blood Count 9.9 10^3/uL (3.8-11.8)
[2023-09-05] MEDS ORDERED: Iodixanol (CONTRAST) 320 MG/ML 100 ML SDV IV ONE (11:41)
[2023-09-05 11:55] LABS: Urine Appearance Clear; Urine Bilirubin Negative (Negative); Urine Blood Negative (Negative); Urine Color Yellow; Urine Glucose 3+(>=500 mg/dL) (Negative); Urine Ketones Negative (Negative); Urine Nitrite Negative (Negative); Urine Protein Negative (Negative); Urine Specific Gravity 1.024 (1.002-1.030); Urine Urobilinogen Positive (Negative)
[2023-09-05 13:24] LABS: Urine Benzodiazepine Screen None Detected (None Detect); Urine Cannabinoids Screen None Detected (None Detect); Urine Opiates Screen None Detected (None Detect)
[2023-09-05] MEDS ORDERED: Dextrose 50% Syringe 50 ml 25 GM/50 ML SYRINGE IV PUSH PRN (14:29)
[2023-09-05] MEDS: Pantoprazole VIAL 40 MG VIAL IV SCH (17:23)
[2023-09-05] MEDS: Enoxaparin 40 MG/0.4 ML SYR SUBCUT SCH (17:23)
[2023-09-05] MEDS: Albuterol 2.5mg/3 ml (0.083%) NEB.SOLN INH SCH (19:12)
[2023-09-06] MEDS: Albuterol 2.5mg/3 ml (0.083%) NEB.SOLN INH SCH ×2 (08:02→19:34)
[2023-09-06] MEDS: Enoxaparin 40 MG/0.4 ML SYR SUBCUT SCH (11:49)
[2023-09-06] MEDS: Pantoprazole VIAL 40 MG VIAL IV SCH (11:50)
[2023-09-06] MEDS: Isosorbide Mononit ER 60mg TAB PO SCH (12:10)
[2023-09-06] MEDS: CMC:FLUTICAS/UMECLI/VILANT 100-62.5-25 MDI (NF) INH SCH (14:45)
[2023-09-07] MEDS: Acetaminophen IV 1 GM/100ML 1,000 MG/100 ML BAG IV PRN (03:39)
[2023-09-07 08:47] LABS: ABS Eosinophils 0.3 10^3/uL (0.0-0.5); ABS Lymphocytes 1.6 10^3/uL (1.0-4.8); ABS Monocytes 0.8 10^3/uL (0.0-0.9); ABS Neutrophils 3.2 10^3/uL (1.5-7.6); ABS Nucleated RBC 0.02 10^3/ul; Eosinophil % 5.6 %; Hematocrit 40.5 % (35-45); Hemoglobin 13.4 g/dL (11.5-14.3); Lymphocyte % 26.5 %; Mean Corpuscular Hemoglobin 28.7 pg (27-33); Mean Corpuscular Volume 86.9 fL (80-97); Mean Platelet Volume 7.1 fL (7.5-11.2); Nucleated Red Blood Cells % 0.3 %/100WBC (0.0-0.8); Platelet Count 264 10^3/uL (150-450); Red Blood Count 4.66 10^6/uL (3.63-4.92); Red Cell Distribution Width 13.8 % (12-17)
[2023-09-07] MEDS: Isosorbide Mononit ER 60mg TAB PO SCH (09:02)
[2023-09-07] MEDS: Polyethylene Glycol 3350 17 GM PACKET PO SCH ×2 (09:02→21:50)
[2023-09-07 09:03] LABS: Calcium 9.3 mg/dL (8.6-10.3); Creatinine, Serum 1.25 mg/dL (0.51-0.95); Magnesium 1.8 mg/dL (1.9-2.7); Potassium 4.1 mmol/L (3.5-5.0); eGFR CKD-EPI 47.5 (>60)
[2023-09-07] MEDS: Enoxaparin 40 MG/0.4 ML SYR SUBCUT SCH (09:04)
[2023-09-07] MEDS: CMC:FLUTICAS/UMECLI/VILANT 100-62.5-25 MDI (NF) INH SCH (09:04)
[2023-09-07] MEDS: Albuterol 2.5mg/3 ml (0.083%) NEB.SOLN INH SCH ×2 (09:19→19:10)
[2023-09-07] MEDS ORDERED: Senna TAB 8.6 mg TAB PO PRN (09:44)
[2023-09-07] MEDS ORDERED: Polyethylene Glycol 3350 17 GM PACKET PO PRN (09:45)
[2023-09-07] MEDS: Ondansetron 4 mg VIAL 2 MG/ML 2 ml VIAL IV PRN (13:43)
[2023-09-07] MEDS ORDERED: Calcium Carb (TUMS) 500 mg CHEW TAB PO ONE (19:52)
[2023-09-08 06:30] LABS: Calcium 9.1 mg/dL (8.6-10.3); Creatinine, Serum 1.03 mg/dL (0.51-0.95); Magnesium 1.6 mg/dL (1.9-2.7); Potassium 4.1 mmol/L (3.5-5.0)
[2023-09-08] MEDS: CMC:FLUTICAS/UMECLI/VILANT 100-62.5-25 MDI (NF) INH SCH (07:07)
[2023-09-08] MEDS: Albuterol 2.5mg/3 ml (0.083%) NEB.SOLN INH SCH ×2 (07:07→19:08)
[2023-09-08] MEDS ORDERED: Magnesium Sulfate 2 gm BAG 2 GM/50 ML BAG IVPB ONE (07:35)
[2023-09-08] MEDS: Polyethylene Glycol 3350 17 GM PACKET PO SCH ×2 (09:01→23:04)
[2023-09-08] MEDS: Enoxaparin 40 MG/0.4 ML SYR SUBCUT SCH (09:29)
[2023-09-08] MEDS: Senna TAB 8.6 mg TAB PO SCH (09:31)
[2023-09-08] MEDS: Isosorbide Mononit ER 60mg TAB PO SCH (09:33)
[2023-09-08] MEDS: Ondansetron 4 mg VIAL 2 MG/ML 2 ml VIAL IV PRN (14:44)
[2023-09-08] MEDS: Albuterol HFA INHALER 8 gm MDI INH PRN (17:56)
[2023-09-08 20:56] LABS: Venous Bicarbonate HCO3 27.2 mmol/L (24-28)
[2023-09-08 21:18] LABS: Calcium 9.2 mg/dL (8.6-10.3); Creatinine, Serum 1.14 mg/dL (0.51-0.95); Potassium 4.4 mmol/L (3.5-5.0); eGFR CKD-EPI 53.1 (>60)
[2023-09-09] MEDS: Ondansetron 4 mg VIAL 2 MG/ML 2 ml VIAL IV PRN ×2 (00:36→13:30)
[2023-09-09 06:02] LABS: Calcium 9.2 mg/dL (8.6-10.3); Creatinine, Serum 0.92 mg/dL (0.51-0.95); Magnesium 1.9 mg/dL (1.9-2.7); Potassium 4.6 mmol/L (3.5-5.0); eGFR CKD-EPI 68.7 (>60)
[2023-09-09] MEDS: CMC:FLUTICAS/UMECLI/VILANT 100-62.5-25 MDI (NF) INH SCH (07:20)
[2023-09-09] MEDS: Albuterol 2.5mg/3 ml (0.083%) NEB.SOLN INH SCH ×2 (07:20→19:16)
[2023-09-09] MEDS: Polyethylene Glycol 3350 17 GM PACKET PO SCH ×3 (09:36→21:23)
[2023-09-09] MEDS: Isosorbide Mononit ER 60mg TAB PO SCH (09:39)
[2023-09-09] MEDS: Senna TAB 8.6 mg TAB PO SCH (09:39)
[2023-09-09] MEDS: Enoxaparin 40 MG/0.4 ML SYR SUBCUT SCH (09:40)
[2023-09-09] MEDS: Acetaminophen IV 1 GM/100ML 1,000 MG/100 ML BAG IV PRN (12:59)
[2023-09-09 13:27] LABS: Venous Bicarbonate HCO3 26.1 mmol/L (24-28)
[2023-09-09 23:00] LABS: TSH Ultra Thyroid Stim Horm 1.2 mcIU/mL (0.34-5.60)
[2023-09-09 23:11] LABS: Folate 16.33 ng/mL (5.90-24.80)
[2023-09-10] MEDS: Albuterol HFA INHALER 8 gm MDI INH PRN (02:01)
[2023-09-10] MEDS: Albuterol 2.5mg/3 ml (0.083%) NEB.SOLN INH SCH ×2 (07:20→19:28)
[2023-09-10] MEDS: CMC:FLUTICAS/UMECLI/VILANT 100-62.5-25 MDI (NF) INH SCH (07:20)
[2023-09-10] MEDS: Isosorbide Mononit ER 60mg TAB PO SCH (08:25)
[2023-09-10] MEDS: Senna TAB 8.6 mg TAB PO SCH (08:29)
[2023-09-10] MEDS: Enoxaparin 40 MG/0.4 ML SYR SUBCUT SCH (08:32)
[2023-09-10] MEDS: Polyethylene Glycol 3350 17 GM PACKET PO SCH ×2 (08:35→19:18)
[2023-09-10 10:01] LABS: Calcium 8.6 mg/dL (8.6-10.3); Creatinine, Serum 0.94 mg/dL (0.51-0.95); eGFR CKD-EPI 66.9 (>60)
[2023-09-10] MEDS: Acetaminophen IV 1 GM/100ML 1,000 MG/100 ML BAG IV PRN (21:04)
[2023-09-11] MEDS: Albuterol 2.5mg/3 ml (0.083%) NEB.SOLN INH SCH ×2 (07:39→19:40)
[2023-09-11] MEDS: CMC:FLUTICAS/UMECLI/VILANT 100-62.5-25 MDI (NF) INH SCH ×2 (07:40→07:49)
[2023-09-11] MEDS: Polyethylene Glycol 3350 17 GM PACKET PO SCH ×2 (08:01→19:51)
[2023-09-11] MEDS: Senna TAB 8.6 mg TAB PO SCH (08:03)
[2023-09-11] MEDS: Isosorbide Mononit ER 60mg TAB PO SCH (08:03)
[2023-09-11] MEDS: Enoxaparin 40 MG/0.4 ML SYR SUBCUT SCH (08:06)
[2023-09-11 13:49] LABS: High Sensitivity Troponin 1 Hr 3 pg/mL (<15)
[2023-09-12] MEDS: Albuterol 2.5mg/3 ml (0.083%) NEB.SOLN INH SCH ×2 (07:42→18:45)
[2023-09-12] MEDS: CMC:FLUTICAS/UMECLI/VILANT 100-62.5-25 MDI (NF) INH SCH (07:42)
[2023-09-12] MEDS: Polyethylene Glycol 3350 17 GM PACKET PO SCH (07:42)
[2023-09-12] MEDS: Isosorbide Mononit ER 60mg TAB PO SCH (08:45)
[2023-09-12] MEDS: Senna TAB 8.6 mg TAB PO SCH ×2 (08:48→20:55)
[2023-09-12] MEDS: Enoxaparin 40 MG/0.4 ML SYR SUBCUT SCH (08:50)
[2023-09-12] MEDS: Acetaminophen IV 1 GM/100ML 1,000 MG/100 ML BAG IV PRN (14:54)
[2023-09-12] MEDS: Ondansetron 4 mg VIAL 2 MG/ML 2 ml VIAL IV PRN (16:44)
[2023-09-13] MEDS: CMC:FLUTICAS/UMECLI/VILANT 100-62.5-25 MDI (NF) INH SCH (07:34)
[2023-09-13] MEDS: Albuterol 2.5mg/3 ml (0.083%) NEB.SOLN INH SCH (07:37)
[2023-09-13] MEDS: Isosorbide Mononit ER 60mg TAB PO SCH (08:44)
[2023-09-13] MEDS: Senna TAB 8.6 mg TAB PO SCH (08:46)
[2023-09-13] MEDS: Enoxaparin 40 MG/0.4 ML SYR SUBCUT SCH (08:48)
[2023-09-13 10:23] VITALS: BP 110/75
== END 2023-09-13 13:45 | disposition home or self-care (01) | DRG 92 ==
LOC: EDHOLD 09:22 → ED 09:22 → INTOOBSV 12:22 → OBSVTOIN 12:22 → MED 14:15 → SUATTDRO 09-06 12:30 → MED 09-11 13:54
PROVIDERS: ADMIT Hospitalist; ATTEND Internal Medicine